=== PATIENT | male | born 1945 | race Hispanic/Latino ===

== ENCOUNTER 2017-12-30 14:56 | Emergency (ER) | payer MEDICARE ==
[~2017-12-30] VITALS: Ht 165.1 cm; Wt 83.9 kg
[~2017-12-30 14:56] MED LIST: AMLODIPINE BESY10 MG PO; ANDROGEL75 G1; BENAZEPRIL HCL20 MG PO; BUPROPION XL150 MG PO; CELEBREX200 MG PO; CRESTOR10 MG PO; FLOMAX0.4 MG PO; GLIMEPIRIDE2 MG PO; HUMALOG100 UNIT/3 SQ; KEPPRA500 MG PO; KETOROLAC TROMET5 M1 OP; LEVEMIR100 UNIT/1 SQ; LOTENSIN20 MG PO; METFORMIN HCL500 MG PO; METOPROLOL SUCC50 MG PO; PLAVIX75 MG PO; PREDNISOLONE ACE5 ML OP; PREDNISONE10 MG PO; PROVENTIL HFA6.7 GM IN; RANITIDINE HCL150 MG PO; VIGAMOX3 ML OP
[2017-12-30 16:35] LABS: BASOPHILS % 0.4 % (0.0-1.0); EOSINOPHILS # (AUTO) 0.4 (0.0-0.4); EOSINOPHILS % 5.8 % (0.0-6.0); HEMATOCRIT 42.8 % (38.2-49.6); HEMOGLOBIN 15.7 g/dL (14.0-18.0); LYMPHOCYTES # (AUTO) 1.6 (1.0-3.2); LYMPHOCYTES % 21.3 % (18.0-39.1); MEAN CORPUSCULAR HEMOGLOBIN 30.8 pg (28-32); MEAN CORPUSCULAR HGB CONC 36.7 g/dL (31-35); MEAN CORPUSCULAR VOLUME 84.1 fL (81-99); MONOCYTES # (AUTO) 0.4 (0.2-0.8); NEUTROPHILS # (AUTO) 4.8 (2.1-6.9); NEUTROPHILS % 66.1 % (38.7-80.0); PLATELET COUNT 210 x10e3/uL (140-360); RED BLOOD COUNT 5.09 x10e6/uL (4.3-5.7); RED CELL DISTRIBUTION WIDTH 13.2 % (11.7-14.4)
[2017-12-30 16:43] LABS: INR 1.03; PROTHROMBIN TIME 12.7 seconds (11.9-14.5)
[2017-12-30 16:44] LABS: PARTIAL THROMBOPLASTIN TIME 32.5 seconds (23.8-35.5)
[2017-12-30 16:48] LABS: ALANINE AMINOTRANSFERASE 31 IU/L (0-55); ALBUMIN 3.9 g/dL (3.5-5.0); ALBUMIN/GLOBULIN RATIO 0.8 (0.8-2.0); ALKALINE PHOSPHATASE 116 IU/L (40-150); ANION GAP 12.8 mmol/L (8-16); BLOOD UREA NITROGEN 11 mg/dL (7-26); BUN/CREATININE RATIO 10 (6-25); CALCIUM 9.1 mg/dL (8.4-10.2); CARBON DIOXIDE 27 mmol/L (22-29); CHLORIDE 95 mmol/L (98-107); CREATINE KINASE 73 IU/L (30-200); CREATININE, SERUM 1.11 mg/dL (0.72-1.25); EST GLOMERULAR FILTRATION RATE > 60 ML/MIN (60-); POTASSIUM 3.8 mmol/L (3.5-5.1); SODIUM 131 mmol/L (136-145)
[2017-12-30 16:55] LABS: BILIRUBIN,URINE NEGATIVE (NEGATIVE); CLARITY,URINE CLEAR (CLEAR); COLOR,URINE YELLOW (YELLOW); KETONES,URINE NEGATIVE (NEGATIVE); LEUKOCYTE ESTERASE ,URINE NEGATIVE (NEGATIVE); NITRITE,URINE NEGATIVE (NEGATIVE); PROTEIN,URINE DIPSTICK NEGATIVE (NEGATIVE); URINE UROBILINOGEN 0.2 mg/dL (0.2 - 1); WBC,URINE (MAN) 0-5 /HPF (0-5)
[2017-12-30 16:56] LABS: RBC,URINE 0-5 /HPF (0-5)
[2017-12-30 17:02] LABS: GLUCOSE 515 mg/dL (74-118)
--- NOTE | 2017-12-30 17:19 | Diagnostic Imaging Report ---
EXAMINATION: PA and lateral views of the chest. COMPARISON: None CLINICAL HISTORY: Weakness, altered mental status DISCUSSION: Lines/tubes: None. Lungs: The lungs are well inflated and clear. No pneumonia or pulmonary edema. Pleura: There is no pleural effusion or pneumothorax. Heart and mediastinum: The cardiomediastinal silhouette is normal. Bones and soft tissues: No acute bony abnormalities. IMPRESSION: No acute cardiopulmonary abnormalities. Signed by: Dr. Tono Sebastian M.D. on 12/30/2017 5:15 PM
--- NOTE | 2017-12-30 17:48 | Diagnostic Imaging Report ---
History:Weakness, headache Comparison studies:None Technique: Axial images were obtained from the skull base to the vertex. Coronal and sagittal images reconstructed from the axial data. Intravenous contrast: None Findings: Scalp/skull: No abnormalities. Extra-axial spaces: No masses. No fluid collections. Brain sulci: Mildly prominent. Ventricles: Mild compensatory dilatation. No hydrocephalus. Parenchyma: Scattered small hypodensities in the supratentorial white matter are small vessel ischemic changes. No masses, hemorrhage, acute or chronic cortical vascular insults. Sellar/suprasellar region: No abnormalities. Craniocervical junction: Patent foramen magnum. No Chiari one malformation. Incidental findings: Atherosclerotic calcifications in the carotid siphons . Left eye globe prosthesis. Impression: No acute abnormalities. Chronic findings: 1. Mild generalized volume loss. 2. Mild to moderate supratentorial white matter small vessel ischemic changes. Signed by: DR Tonny Miller M.D. on 12/30/2017 5:45 PM
[2017-12-30] MEDS ORDERED: INSULIN REGULAR, HUMAN 100 UNIT/1 ML 3ML VIAL IV STA (17:58)
[2017-12-30] MEDS ORDERED: SODIUM CHLORIDE 0.9% 1000ML 1,000 ML IV STA (17:58)
[2017-12-30] MEDS ORDERED: SODIUM CHLORIDE 0.9% 1000ML 1,000 ML IV SCH ×3 (18:00→19:07)
[2017-12-30] MEDS ORDERED: INSULIN REGULAR, HUMAN 100 UNIT/1 ML 3ML VIAL SQ ONE (18:00)
[2017-12-30] MEDS ORDERED: SODIUM CHLORIDE 0.9% 1000ML 2,000 ML ONE (18:04)
[2017-12-30 19:45] VITALS: BP 150/76
== END 2017-12-30 19:57 | disposition home or self-care (01) ==
LOC: ER 14:56
DX: G44.219 Episodic tension-type headache, not intractable (principal); E11.65 Type 2 diabetes mellitus with hyperglycemia; I25.10 Atherosclerotic heart disease of native coronary artery without angina pectoris; F41.9 Anxiety disorder, unspecified; F32.9 Major depressive disorder, single episode, unspecified; I25.2 Old myocardial infarction; Z86.73 Personal history of transient ischemic attack (TIA), and cerebral infarction without residual deficits
CPT/HCPCS: 36415; 70450; 71046; 80053; 81001; 82550; 82553; 82948; 84484; 85025; 85610; 85730; 93005; 99284; J7030

== ENCOUNTER 2018-02-16 16:08 | Emergency (ER) | payer MEDICARE ==
[~2018-02-16] VITALS: Ht 165.1 cm; Wt 83.9 kg
--- OUTSIDE RECORDS SUMMARY | 2018-02-16 16:11 | XMS REPORT ---
Author [facility] Address Unknown Phone Unavailable Care Team Providers Care Production Control Specialist Name Role Phone LINK BOURNE Unavailable Unavailable Problems This patient has no known problems. Allergies, Adverse Reactions, Alerts This patient has no known allergies or adverse reactions. Medications This patient has no known medications. Results Test Description Test Time Test Comments Text Results Atomic Results Result Comments CHEST 2 VIEWS [place] [address] Patient Name: ADRYAN DOW MR #: [id number] : 1945 Age/Sex: 72/M Req #: [id number] Adm Physician: Ordered by: LINK BOURNE MD Report #: [id number] Location: ER Room/Bed: Procedure: [id number] [id number] DX/CHEST 2 VIEWS Exam Date: 12/30/17 Exam Time : 1705 REPORT STATUS: Signed EXAMINATION: PA and lateral views of the chest. COMPARISON: None CLINICAL HISTORY: Weakness, altered mental status DISCUSSION: Lines/tubes: None. Lungs: The lungs are well inflated and clear. No pneumonia or pulmonary edema. Pleura : There is no pleural effusion or pneumothorax. Heart and mediastinum: The cardiomediastinal silhouette is normal. Bones and soft tissues: No acute bony abnormalities. IMPRESSION: No acute cardiopulmonary abnormalities. Signed by: Dr. Hernandez Cotton M.D. on 12/30/2017 5:15 PM Dictated By: HERNANDEZ COTTON MD 14 Transcribed By: JAZLYN on 12/30/171714 COPY TO: LINK BOURNE MD CT BRAIN WO [facility] [address] [address] Patient Name: ADRYAN DOW MR #: [id number] : 1945 Age/Sex: 72/M Req #: [id number] Adm Physician: Ordered by: LINK BOURNE MD Report #: [id number] Location: ER Room/Bed: Procedure: [id number] CT/CT BRAIN WO Exam Date: 12/30/17 Exam Time: 1708 REPORT STATUS: Signed History:Weakness, headache Comparison studies:None Technique: Axial images were obtained from the skull base to the vertex. Coronal and sagittal images reconstructed from the axial data. Intravenous contrast: None Findings: Scalp/skull: No abnormalities. Extra-axial spaces: No masses. No fluid collections. Brain sulci: Mildly prominent. Ventricles: Mild compensatory dilatation. No hydrocephalus. Parenchyma: Scattered small hypodensities in the supratentorial white matter are small vessel ischemic changes. No masses, hemorrhage, acute or chronic cortical vascular insults. Sellar/ suprasellar region: No abnormalities. Craniocervical junction: Patent foramen magnum. No Chiari one malformation. Incidental findings: Atherosclerotic calcifications in the carotid siphons . Left eye globe prosthesis. Impression: No acute abnormalities. Chronic findings : 1. Mild generalized volume loss. 2. Mild to moderate supratentorial white matter small vessel ischemic changes. Signed by: DR Tonny Miller M.D. on 12/30/2017 5:45 PM Dictated By: TONNY BARON MD 44 Transcribed By : JAZLYN on 12/30/171744 COPY TO: LINK BOURNE MD
--- OUTSIDE RECORDS SUMMARY | 2018-02-16 16:11 | XMS REPORT | Continuity of Care Document ---
Author Author [facility] Organization [facility] Address [address] [place] [place] [address] Phone Unavailable Care Team Providers Care Ocean Rescue Lieutenant Name Role Phone LEWIS SORIA MD PCP Insurance Providers Guarantor Adryan Walsh Address [address] [place] [address] Email NONE Payer [employer] Medicare Complete Policy Number [id number] Subscriber's Name Natali Walshmiesha Maurisio Relationship 18 Self / Same As Patient Group Number [id number] Group Name RETIRED Effective Date 16 Advance Directives Directive Response Recorded Date/Time Does the patient have an advance directive? No 01/17/17 7:08pm If yes, is advance directive on file with [facility]? No 01/17/17 7:08pm If not on file with [facility] will patient provide a copy? Yes 01/25/17 3:54pm Do you have a Directive to Physician? No 12/30/17 5:27pm Do you have a Medical Power of Child Care Center Assistant Director? No 12/30/17 5:27pm Do you have an out of hospital Do Not Resuscitate Order? No 12/30/17 5:27pm Do you have any special needs we should be aware of? No 12/30/17 5:27pm Do you have a support person here with you today? No 12/30/17 5:27pm Did patient receive Notice of Privacy Practices? Yes 12/30/17 5:27pm Did patient receive patient rights and responsibilities? Yes 12/30/17 5:27pm Problems Medical Problem Onset Date Status Chest pain 05/09/2016 Acute DKA (diabetic ketoacidoses) 03/25/2015 Acute Diabetes 05/09/2016 Acute Headache 06/03/2015 Acute Hypertension 05/09/2016 Acute Syncope 05/09/2016 Acute Medications Current Home Medications Medication Dose Units Route Directions Days Qty Instructions Start Date Amlodipine Besylate 10 Mg Tablet 10 Mg Oral Daily Benazepril Hcl 20 Mg Tablet 20 Mg Oral Daily 1-/2 tab daily Bupropion Hcl (Bupropion Xl) 150 Mg Tab.er.24h 150 Mg Oral Daily Celecoxib (Celebrex) 200 Mg Capsule 200 Mg Oral Daily Clopidogrel Bisulfate (Plavix) 75 Mg Tablet 75 Mg Oral Daily Insulin Detemir (Levemir) 100 Unit/1 Ml Vial 40 Units Sub-Q Bedtime Insulin Lispro (Humalog) 100 Unit/1 Ml Insuln.pen 20 Units Sub-Q Before Meals Levetiracetam (Keppra) 500 Mg Tablet 500 Mg Oral Twice A Day Ranitidine Hcl 150 Mg Tablet 1 Tab Oral Daily as needed for Indigestion Rosuvastatin Calcium (Crestor) 10 Mg Tab 10 Mg Oral Bedtime Tamsulosin Hcl (Flomax*) 0.4 Mg Cap 0.4 Mg Oral Daily Past Home Medications Medication Directions Ordered Status Albuterol Sulfate (Proventil Hfa) 6.7 Gm Hfa.aer.ad, 0 In Vitro Every 6 Hours as needed Discontinued Benazepril Hcl (Lotensin) 20 Mg Tablet, 20 Mg Oral Daily Discontinued Glimepiride 2 Mg Tablet, 2 Mg Oral Daily Discontinued Ketorolac Tromethamine 5 Ml Drops, 1 Drop Ophthalmic Four Times Daily Discontinued Metformin Hcl 500 Mg Tablet, 500 Mg Oral Three Times A Day Discontinued Metoprolol Succinate 50 Mg Tab.er.24h, 50 Mg Oral Daily Discontinued Moxifloxacin Hcl (Vigamox) 3 Ml Soln, 1 Drop Ophthalmic Four Times Daily Discontinued Prednisolone Acetate 5 Ml Drops.susp, 1 Drop Ophthalmic Four Times Daily Discontinued Prednisone 10 Mg Tab, 10 Mg Oral Daily Discontinued Testosterone (Androgel) 75 Gm Gel..director custom, Discontinued Family History Relationship Condition Age at Onset Recorded Date/Time 33 Father Family history of diabetes mellitus Not Recorded 05/09/2016 11: 00pm 32 Mother Family history of diabetes mellitus Not Recorded 05/09/2016 11: 00pm 09 Sister Family history of diabetes mellitus Not Recorded 05/09/2016 11: 00pm 09 Sister Family history of hypertension Not Recorded 05/09/2016 11:00pm Social History Social History Problem Response Recorded Date/Time Onset Date Status Hx Psychiatric Problems No 01/17/2017 7:08pm Not Applicable Not Applicable Hx Eating Disorder No 01/17/2017 7:08pm Not Applicable Not Applicable Hx Substance Use Disorder No 01/17/2017 7:08pm Not Applicable Not Applicable Hx Depression Yes 01/17/2017 7:08pm Not Applicable Not Applicable Hx Alcohol Use No 01/17/2017 7:08pm Not Applicable Not Applicable Hx Substance Use Treatment No 01/17/2017 7:08pm Not Applicable Not Applicable Hx Physical Abuse No 01/17/2017 7:08pm Not Applicable Not Applicable Smoking Status Start Date Stop Date Current every day smoker Hospital Discharge Instructions No hospital discharge instruction information available. Plan of Care Discharge Date 12/30/17 7:57pm Disposition HOME, SELF-CARE Condition at Discharge Improved Instructions/Education Provided Diabetes and Diet Headache Hyperglycemia Forms Provided Work/School Excuse Prescriptions See Medication Section Additional Instructions/Education TAKE YOUR MEDICATIONS PRESCRIBED FOLLOW A STRICT DIABETIC DIET YOU HAVE TO CHECK YOUR SUGARS DAILY AND TAKE YOUR MEDICATIONS DIRECTED BY YOUR PHYSICIAN Functional Status No functional status information available. Allergies, Adverse Reactions, Alerts Allergen Type Severity Reaction Status Last Updated Aspirin Allergy Unknown Active 10/06/09 Immunizations No immunization information available. Vital Signs Acute Vital Signs Vital Response Date/Time Pulse Pulse Rate (adult) 65 bpm (60 - 90) 12/30/2017 7:45pm Respiratory Rate 16 bpm (12 - 24) 12/30/2017 7:45pm Blood Pressure 150/76 mm Hg 12/30/2017 7:45pm Height 5 ft 5 in 12/30/2017 3:14pm Weight 185 lb 12/30/2017 3:14pm Body Mass Index 30.8 kg/m^2 12/30/2017 3:14pm Results Laboratory Results Test Name Result Units Flags Reference Collection Date/Time Result Date/ Time Comments White Blood Count 7.29 x10e3/uL 4.8-10.8 12/30/2017 4:07pm 12/30/2017 4 :37pm Red Blood Count 5.09 x10e6/uL 4.3-5.7 12/30/2017 4:07pm 12/30/2017 4: 37pm Hemoglobin 15.7 g/dL 14.0-18.0 12/30/2017 4:pm 12/30/2017 4:37pm Hematocrit 42.8 % 38.2-49.6 12/30/2017 4:pm 12/30/2017 4:37pm Mean Corpuscular Volume 84.1 fL 81-99 12/30/2017 4:pm 12/30/2017 4: 37pm Mean Corpuscular Hemoglobin 30.8 pg 28-32 12/30/2017 4:pm 12/30/2017 4:37pm Mean Corpuscular Hemoglobin Concent 36.7 g/dL H 31-35 12/30/2017 4:pm 12/30/2017 4:37pm Red Cell Distribution Width 13.2 % 11.7-14.4 12/30/2017 4:07pm 2017 4:37pm Platelet Count 210 x10e3/uL 140-360 12/30/2017 4:07pm 12/30/2017 4: 37pm Neutrophils (%) (Auto) 66.1 % 38.7-80.0 12/30/2017 4:pm 12/30/2017 4: 37pm Lymphocytes (%) (Auto) 21.3 % 18.0-39.1 12/30/2017 4:pm 12/30/2017 4: 37pm Monocytes (%) (Auto) 6.0 % 4.4-11.3 12/30/2017 4:pm 12/30/2017 4: 37pm Eosinophils (%) (Auto) 5.8 % 0.0-6.0 12/30/2017 4:pm 12/30/2017 4: 37pm Basophils (%) (Auto) 0.4 % 0.0-1.0 12/30/2017 4:07pm 12/30/2017 4:37pm IM GRANULOCYTES % 0.4 % 0.0-1.0 12/30/2017 4:pm 12/30/2017 4:37pm Neutrophils # (Auto) 4.8 2.1-6.9 12/30/2017 4:07pm 12/30/2017 4:37pm Lymphocytes # (Auto) 1.6 1.0-3.2 12/30/2017 4:07pm 12/30/2017 4:37pm Monocytes # (Auto) 0.4 0.2-0.8 12/30/2017 4:07pm 12/30/2017 4:37pm Eosinophils # (Auto) 0.4 0.0-0.4 12/30/2017 4:07pm 12/30/2017 4:37pm Basophils # (Auto) 0.0 0.0-0.1 12/30/2017 4:07pm 12/30/2017 4:37pm Absolute Immature Granulocyte (auto 0.03 x10e3/uL 0-0.1 12/30/2017 4: 07pm 12/30/2017 4:37pm Prothrombin Time 12.7 seconds 11.9-14.5 12/30/2017 4:07pm 12/30/2017 4: 44pm Prothromb Time International Ratio 1.03 12/30/2017 4:07pm 2017 4:44pm Oral Anticoagulant Therapy INR Values: 1. Low Intensity Therapy 1.5 - 2.0 2. Moderate Intensity Therapy 2.0 - 3.0 3. High Intensity Therapy(1) 2.5 - 3.5 4. High Intensity Therapy(2) 3.0 - 4.0 5. Panic Value INR > 5.0 Activated Partial Thromboplast Time 32.5 seconds 23.8-35.5 12/30/2017 4: 07pm 12/30/2017 4:44pm Urine Color YELLOW YELLOW 12/30/2017 3:00pm 12/30/2017 4:57pm Urine Clarity CLEAR CLEAR 12/30/2017 3:00pm 12/30/2017 4:57pm Urine Specific [place] 1.010 1.010-1.025 12/30/2017 3:00pm 2017 4:57pm Urine pH 6 5 - 7 12/30/2017 3:00pm 12/30/2017 4:57pm Urine Leukocyte Esterase NEGATIVE NEGATIVE 12/30/2017 3:00pm 2017 4:57pm Urine Nitrite NEGATIVE NEGATIVE 12/30/2017 3:00pm 12/30/2017 4:57pm Urine Protein NEGATIVE NEGATIVE 12/30/2017 3:00pm 12/30/2017 4:57pm Urine Glucose (UA) 3+ H NEGATIVE 12/30/2017 3:00pm 12/30/2017 4:57pm Urine Ketones NEGATIVE NEGATIVE 12/30/2017 3:00pm 12/30/2017 4:57pm Urine Urobilinogen 0.2 mg/dL 0.2 - 1 12/30/2017 3:00pm 12/30/2017 4: 57pm Urine Bilirubin NEGATIVE NEGATIVE 12/30/2017 3:00pm 12/30/2017 4: 57pm Urine Blood NEGATIVE NEGATIVE 12/30/2017 3:00pm 12/30/2017 4:57pm Urine WBC 0-5 /HPF 0-5 12/30/2017 3:00pm 12/30/2017 4:57pm Urine RBC 0-5 /HPF 0-5 12/30/2017 3:00pm 12/30/2017 4:57pm Urine Bacteria NONE /HPF NONE 12/30/2017 3:00pm 12/30/2017 4:57pm Urine Epithelial Cells NONE /LPF NONE 12/30/2017 3:00pm 12/30/2017 4: 57pm Sodium Level 131 mmol/L L 136-145 12/30/2017 4:07pm 12/30/2017 5:03pm Potassium Level 3.8 mmol/L 3.5-5.1 12/30/2017 4:07pm 12/30/2017 5:03pm Chloride Level 95 mmol/L L 98-107 12/30/2017 4:07pm 12/30/2017 5:03pm Carbon Dioxide Level 27 mmol/L 22-29 12/30/2017 4:07pm 12/30/2017 5: 03pm Anion Gap 12.8 mmol/L 8-16 12/30/2017 4:07pm 12/30/2017 5:03pm Blood Urea Nitrogen 11 mg/dL 7-26 12/30/2017 4:07pm 12/30/2017 5:03pm Creatinine 1.11 mg/dL 0.72-1.25 12/30/2017 4:07pm 12/30/2017 5:03pm BUN/Creatinine Ratio 10 6-25 12/30/2017 4:07pm 12/30/2017 5:03pm Estimat Glomerular Filtration Rate > 60 ML/MIN 60- 12/30/2017 4:07pm 5:03pm Ranges were taken from the National Kidney Disease Education Program and the National Kid[employer] literature. Reference ranges: 60 or greater: Normal 16-59 (for 3 consecutive months): Chronic kidney disease 15 or less: Kidney failure Glucose Level 515 mg/dL *H 74-118 12/30/2017 4:07pm 12/30/2017 5:03pm Results called to SALINA BHATT RN at 1701 on 12/30/17 by Chrissie Tobias. RB OK. Calcium Level 9.1 mg/dL 8.4-10.2 12/30/2017 4:07pm 12/30/2017 5:03pm Bedside Glucose 224 mg/dL H 70-120 12/30/2017 7:39pm 12/30/2017 7:47pm Meter ID: [id number] Total Bilirubin 0.6 mg/dL 0.2-1.2 12/30/2017 4:07pm 12/30/2017 5:03pm Aspartate Amino Transf (AST/SGOT) 22 IU/L 5-34 12/30/2017 4:07pm 2017 5:03pm Alanine Aminotransferase (ALT/SGPT) 31 IU/L 0-55 12/30/2017 4:07pm 03/2018 5:03pm Total Protein 9.0 g/dL H 6.5-8.1 12/30/2017 4:07pm 12/30/2017 5:03pm Albumin 3.9 g/dL 3.5-5.0 12/30/2017 4:07pm 12/30/2017 5:03pm Globulin 5.1 g/dL H 2.3-3.5 12/30/2017 4:07pm 12/30/2017 5:03pm Albumin/Globulin Ratio 0.8 0.8-2.0 12/30/2017 4:07pm 12/30/2017 5: 03pm Alkaline Phosphatase 116 IU/L 40-150 12/30/2017 4:07pm 12/30/2017 5: 03pm Creatine Kinase 73 IU/L 30-200 12/30/2017 4:07pm 12/30/2017 5:03pm Creatine Kinase MB 0.90 ng/mL 0-5.0 12/30/2017 4:07pm 12/30/2017 5: 03pm Troponin I < 0.001 ng/mL 0-0.300 12/30/2017 4:07pm 12/30/2017 5:03pm Procedures Procedure Status Date Provider(s) Computed tomography of brain without radiopaque contrast Active 12/30/17 LINK BOURNE MD X-ray of chest, two views Active 12/30/17 LINK BOURNE MD Encounters Encounter Location Arrival/Admit Date Discharge/Depart Date Attending Provider Departed Emergency Room [facility] 12/30/17 2:56pm 7:57pm LINK BOURNE MD
[2018-02-16 17:32] LABS: BASOPHILS # (AUTO) 0.1 (0.0-0.1); BASOPHILS % 0.8 % (0.0-1.0); EOSINOPHILS # (AUTO) 0.8 (0.0-0.4); EOSINOPHILS % 10.2 % (0.0-6.0); HEMATOCRIT 36.2 % (38.2-49.6); HEMOGLOBIN 12.8 g/dL (14.0-18.0); LYMPHOCYTES % 27.2 % (18.0-39.1); MEAN CORPUSCULAR HEMOGLOBIN 31.1 pg (28-32); MEAN CORPUSCULAR HGB CONC 35.4 g/dL (31-35); MEAN CORPUSCULAR VOLUME 88.1 fL (81-99); MONOCYTES # (AUTO) 0.6 (0.2-0.8); MONOCYTES % 7.5 % (4.4-11.3); NEUTROPHILS % 54.2 % (38.7-80.0); PLATELET COUNT 198 x10e3/uL (140-360); RED BLOOD COUNT 4.11 x10e6/uL (4.3-5.7); RED CELL DISTRIBUTION WIDTH 13.9 % (11.7-14.4)
[2018-02-16 17:41] LABS: BILIRUBIN,URINE NEGATIVE (NEGATIVE); CLARITY,URINE CLEAR (CLEAR); COLOR,URINE YELLOW (YELLOW); KETONES,URINE NEGATIVE (NEGATIVE); LEUKOCYTE ESTERASE ,URINE NEGATIVE (NEGATIVE); NITRITE,URINE NEGATIVE (NEGATIVE); PROTEIN,URINE DIPSTICK TRACE (NEGATIVE); URINE UROBILINOGEN 4 mg/dL (0.2 - 1)
--- NOTE | 2018-02-16 17:46 | Diagnostic Imaging Report ---
PROCEDURE: Frontal and lateral views of the chest. COMPARISON: 12/30/17 INDICATIONS: SICK, HEADACHE FINDINGS: Lines/tubes: None. Lungs: The lungs are well inflated and clear. There is no evidence of pneumonia or pulmonary edema. Mild left basilar subsegmental atelectasis. Pleura: There is no pleural effusion or pneumothorax. Heart and mediastinum: The heart and the mediastinum are normal. Bones: No acute bony abnormality. Degenerative changes of thoracic spine. Unchanged anterior wedging of T10 vertebral body. IMPRESSION: 1. No acute cardiopulmonary disease. Dictated by: Parker Peterson M.D. on 02/16/2018 at 17:49 Electronically approved by: Parker Peterson M.D. on 02/16/2018 at 17:49
[2018-02-16 17:49] LABS: ALANINE AMINOTRANSFERASE 16 IU/L (0-55); ALBUMIN 3.6 g/dL (3.5-5.0); ALKALINE PHOSPHATASE 80 IU/L (40-150); ANION GAP 11.7 mmol/L (8-16); BLOOD UREA NITROGEN 12 mg/dL (7-26); BUN/CREATININE RATIO 13 (6-25); CALCIUM 8.5 mg/dL (8.4-10.2); CARBON DIOXIDE 25 mmol/L (22-29); CHLORIDE 105 mmol/L (98-107); CREATINE KINASE 82 IU/L (30-200); CREATININE, SERUM 0.92 mg/dL (0.72-1.25); EST GLOMERULAR FILTRATION RATE > 60 ML/MIN (60-); GLUCOSE 146 mg/dL (74-118); LIPASE 29 U/L (8-78); POTASSIUM 3.7 mmol/L (3.5-5.1); SODIUM 138 mmol/L (136-145)
[2018-02-16 17:52] LABS: RBC,URINE 0-5 /HPF (0-5)
[2018-02-16 17:53] LABS: EPITHELIAL CELLS,URINE RARE /LPF; MUCUS,URINE FEW (RARE)
--- NOTE | 2018-02-16 18:31 | Diagnostic Imaging Report ---
Examination: CT head without contrast Clinical Indication: Headache.. Technique: Transaxial noncontrast images from the skull base through the vertex were obtained. Sagittal and coronal reformatted images were done. Comparison: Head CT performed December 30, 2017. Findings: Scalp: No abnormalities. Bones: Intact. No fractures. No blastic or lytic lesions. Brain sulci: Mild volume loss for patient's age. Ventricles: No hydrocephalus. Extra-axial space: No abnormalities. Parenchyma: There are patchy areas of low-attenuation within subcortical and periventricular white matter, nonspecific, but could represent microvascular ischemic disease. No masses, hemorrhage, or acute or chronic cortical based vascular insults. Suprasellar region: No abnormalities. Craniocervical junction: The foramen magnum is patent. No Chiari one malformation. Incidental findings: Atherosclerotic calcification of the cavernous and supraclinoid internal carotid and V4 segments of the bilateral vertebral arteries. Left globe prosthesis. Impression: 1. No new or acute intracranial abnormalities. No change from prior head CT performed December 30, 2017. 2. Unchanged mild chronic microvascular ischemic change and volume loss. Signed by: Dr. Susana Serrato M.D. on 02/16/2018 6:27 PM
[2018-02-16] MEDS ORDERED: SODIUM CHLORIDE 0.9% 1000ML 1,000 ML IV STA (18:37)
[2018-02-16] MEDS ORDERED: METOCLOPRAMIDE HCL 10 MG/2ML VIAL IV ONE (18:45)
[2018-02-16] MEDS ORDERED: KETOROLAC TROMETHAMINE 30 MG/ML VIAL IV ONE (19:50)
[2018-02-16] MEDS ORDERED: DIPHENHYDRAMINE HCL INJ 50 MG/ML VIAL IV ONE (20:00)
[2018-02-16 21:25] VITALS: BP 157/104
== END 2018-02-16 22:12 | disposition home or self-care (01) ==
LOC: ER 16:08
DX: R51 Headache (principal); R06.02 Shortness of breath; R07.89 Other chest pain; R53.1 Weakness; I10 Essential (primary) hypertension; E11.9 Type 2 diabetes mellitus without complications; J44.9 Chronic obstructive pulmonary disease, unspecified; I25.10 Atherosclerotic heart disease of native coronary artery without angina pectoris; F41.9 Anxiety disorder, unspecified; F32.9 Major depressive disorder, single episode, unspecified; I25.2 Old myocardial infarction; F17.210 Nicotine dependence, cigarettes, uncomplicated
CPT/HCPCS: 36415; 70450; 71046; 80053; 81001; 82550; 82553; 83690; 84484; 85025; 93005; 99284; J1200; J1885; J2765; J7030

== ENCOUNTER 2018-02-24 07:48 | Emergency (ER) | payer MEDICARE ==
[~2018-02-24] VITALS: Ht 165.1 cm; Wt 83.9 kg
--- OUTSIDE RECORDS SUMMARY | 2018-02-24 07:50 | XMS REPORT | Continuity of Care Document ---
Author Author [facility] Organization [facility] Address [address] [place] [address] Phone Unavailable Care Team Providers Care Brand Recorder Name Role Phone LEWIS SORIA MD PCP Insurance Providers Guarantor Adryan Walsh Maurisio Address [address], [place] [address] Email PTDECLINED Payer [employer] Medicare Complete Policy Number [id number] Subscriber's Name Adryan Walsh Relationship 18 Self / Same As Patient Group Number [id number] Group Name RETIRED Effective Date 16 Advance Directives Directive Response Recorded Date/Time Does the patient have an advance directive? No 01/17/17 7:08pm If yes, is advance directive on file with [facility]? No 01/17/17 7:08pm If not on file with [facility] will patient provide a copy? No 02/16/18 5:39pm Do you have a Directive to Physician? No 02/16/18 5:39pm Do you have a Medical Power of Lead Java Developer Architect? No 02/16/18 5:39pm Do you have an out of hospital Do Not Resuscitate Order? No 02/16/18 5:39pm Do you have any special needs we should be aware of? No 02/16/18 5:39pm Do you have a support person here with you today? Yes 02/16/18 5:39pm Did patient receive Notice of Privacy Practices? Yes 02/16/18 5:39pm Did patient receive patient rights and responsibilities? Yes 02/16/18 5:39pm Problems Medical Problem Onset Date Status Chest pain 05/09/2016 Acute DKA (diabetic ketoacidoses) 03/25/2015 Acute Diabetes 05/09/2016 Acute Headache 06/03/2015 Acute Hypertension 05/09/2016 Acute Syncope 05/09/2016 Acute Medications Current Home Medications Medication Dose Units Route Directions Days Qty Instructions Start Date Amlodipine Besylate 10 Mg Tablet 10 Mg Oral Daily Benazepril Hcl 20 Mg Tablet 20 Mg Oral Daily 1-2 tab daily Bupropion Hcl (Bupropion Xl) 150 [...] Oral Daily Discontinued Testosterone (Androgel) 75 Gm Gel.md.geographical historian, Discontinued Family History Relationship Condition Age at [...] Applicable Smoking Status Start Date Stop Date Unknown if ever smoked Hospital Discharge Instructions No hospital discharge instruction information available. Plan of Care Discharge Date 02/16/18 10:12pm Disposition HOME, SELF-CARE Condition at Discharge Stable Instructions/Education Provided Headache Forms Provided Work/School Excuse Prescriptions See Medication Section Referrals LEWIS SORIA MD Address: [address] [place] [id number] Additional Instructions/Education FOLLOW UP WITH PCP ON MONDAY. TAKE MEDICATIONS PRESCRIBED. DRINK PLENTY OF FLUID TO MAINTAIN HYDRATION. Functional Status No functional status information available. Allergies, Adverse Reactions, Alerts Allergen Type Severity Reaction Status Last Updated Aspirin Allergy Unknown Active 10/06/09 Immunizations No immunization information available. Vital Signs Acute Vital Signs Vital Response Date/Time Pulse Pulse Rate (adult) 89 bpm (60 - 90) 02/16/2018 9:25pm Respiratory Rate 18 bpm (12 - 24) 02/16/2018 9:25pm Blood Pressure 157/104 mm Hg 02/16/2018 9:25pm Height 5 ft 5 in 02/16/2018 4:23pm Weight 185 lb 02/16/2018 4:23pm Body Mass Index 30.8 kg/m^2 02/16/2018 4:23pm Results Laboratory Results Test Name Result Units Flags Reference Collection Date/Time Result Date/ Time Comments Prothrombin Time 12.7 seconds 11.9-14.5 12/30/2017 4:07pm [...] seconds 23.8-35.5 12/30/2017 4: 07pm 12/30/2017 4:44pm Bedside Glucose 224 mg/dL H 70-120 12/30/2017 7:39pm 12/30/2017 7:47pm Meter ID: [id number] White Blood Count 7.46 x10e3/uL 4.8-10.8 02/16/2018 5:1502/16/2018 5 :32pm Red Blood Count 4.11 x10e6/uL L 4.3-5.7 02/16/2018 5:1502/16/2018 5: 32pm Hemoglobin 12.8 g/dL L 14.0-18.0 02/16/2018 5:1502/16/2018 5:32pm Hematocrit 36.2 % L 38.2-49.6 02/16/2018 5:1502/16/2018 5:32pm Mean Corpuscular Volume 88.1 fL 81-99 02/16/2018 5:1502/16/2018 5: 32pm Mean Corpuscular Hemoglobin 31.1 pg 28-32 02/16/2018 5:1502/16/2018 5:32pm Mean Corpuscular Hemoglobin Concent 35.4 g/dL H 31-35 02/16/2018 5:1502/16/2018 5:32pm Red Cell Distribution Width 13.9 % 11.7-14.4 02/16/2018 5:152017 5:32pm Platelet Count 198 x10e3/uL 140-360 02/16/2018 5:1502/16/2018 5: 32pm Neutrophils (%) (Auto) 54.2 % 38.7-80.0 02/16/2018 5:1502/16/2018 5: 32pm Lymphocytes (%) (Auto) 27.2 % 18.0-39.1 02/16/2018 5:1502/16/2018 5: 32pm Monocytes (%) (Auto) 7.5 % 4.4-11.3 02/16/2018 5:1502/16/2018 5: 32pm Eosinophils (%) (Auto) 10.2 % H 0.0-6.0 02/16/2018 5:1502/16/2018 5: 32pm Basophils (%) (Auto) 0.8 % 0.0-1.0 02/16/2018 5:1502/16/2018 5:32pm IM GRANULOCYTES % 0.1 % 0.0-1.0 02/16/2018 5:1502/16/2018 5:32pm Neutrophils # (Auto) 4.0 2.1-6.9 02/16/2018 5:1502/16/2018 5:32pm Lymphocytes # (Auto) 2.0 1.0-3.2 02/16/2018 5:1502/16/2018 5:32pm Monocytes # (Auto) 0.6 0.2-0.8 02/16/2018 5:1502/16/2018 5:32pm Eosinophils # (Auto) 0.8 H 0.0-0.4 02/16/2018 5:02/16/2018 5: 32pm Basophils # (Auto) 0.1 0.0-0.1 02/16/2018 5:1502/16/2018 5:32pm Absolute Immature Granulocyte (auto 0.01 x10e3/uL 0-0.1 02/16/2018 5: 1502/16/2018 5:32pm Urine Color YELLOW YELLOW 02/16/2018 5:1502/16/2018 5:41pm Urine Clarity CLEAR CLEAR 02/16/2018 5:1502/16/2018 5:41pm Urine Specific [place] 1.020 1.010-1.025 02/16/2018 5:152017 5:41pm Urine pH 7 5 - 7 02/16/2018 5:15pm 02/16/2018 5:41pm Urine Leukocyte Esterase NEGATIVE NEGATIVE 02/16/2018 5:15pm 2017 5:41pm Urine Nitrite NEGATIVE NEGATIVE 02/16/2018 5:15pm 02/16/2018 5:41pm Urine Protein TRACE H NEGATIVE 02/16/2018 5:15pm 02/16/2018 5:41pm Urine Glucose (UA) NEGATIVE NEGATIVE 02/16/2018 5:15pm 02/16/2018 5: 41pm Urine Ketones NEGATIVE NEGATIVE 02/16/2018 5:15pm 02/16/2018 5:41pm Urine Urobilinogen 4 mg/dL H 0.2 - 1 02/16/2018 5:15pm 02/16/2018 5: 41pm Urine Bilirubin NEGATIVE NEGATIVE 02/16/2018 5:15pm 02/16/2018 5: 41pm Urine Blood NEGATIVE NEGATIVE 02/16/2018 5:15pm 02/16/2018 5:41pm Urine WBC 6-10 /HPF H 0-5 02/16/2018 5:15pm 02/16/2018 5:53pm Urine RBC 0-5 /HPF 0-5 02/16/2018 5:15pm 02/16/2018 5:53pm Urine Bacteria NONE /HPF NONE 02/16/2018 5:15pm 02/16/2018 5:53pm Urine Epithelial Cells RARE /LPF NONE 02/16/2018 5:15pm 02/16/2018 5: 53pm Urine Mucus FEW H RARE 02/16/2018 5:15pm 02/16/2018 5:53pm Sodium Level 138 mmol/L 136-145 02/16/2018 5:15pm 02/16/2018 5:50pm Potassium Level 3.7 mmol/L 3.5-5.1 02/16/2018 5:15pm 02/16/2018 5:50pm Chloride Level 105 mmol/L 98-107 02/16/2018 5:15pm 02/16/2018 5:50pm Carbon Dioxide Level 25 mmol/L 02/16/2018 5:15pm 02/16/2018 5: 50pm Anion Gap 11.7 mmol/L 8-16 02/16/2018 5:15pm 02/16/2018 5:50pm Blood Urea Nitrogen 12 mg/dL 04-1902/16/2018 5:15pm 02/16/2018 5:50pm Creatinine 0.92 mg/dL 0.72-1.25 02/16/2018 5:15pm 02/16/2018 5:50pm BUN/Creatinine Ratio 13 6-25 02/16/2018 5:15pm 02/16/2018 5:50pm Estimat Glomerular Filtration Rate > 60 ML/MIN 60- 02/16/2018 5:15pm 5:50pm Ranges were taken from the National Kidney Disease Education Program and the National Kidney Foundation literature. Reference ranges: 60 or greater: Normal 16-59 (for 3 consecutive months): Chronic kidney disease 15 or less: Kidney failure Glucose Level 146 mg/dL H 74-118 02/16/2018 5:15pm 02/16/2018 5:50pm Calcium Level 8.5 mg/dL 8.4-10.2 02/16/2018 5:15pm 02/16/2018 5:50pm Total Bilirubin 0.4 mg/dL 0.2-1.2 02/16/2018 5:15pm 02/16/2018 5:50pm Aspartate Amino Transf (AST/SGOT) 13 IU/L 5-34 02/16/2018 5:15pm 2017 5:50pm Alanine Aminotransferase (ALT/SGPT) 16 IU/L 0-55 02/16/2018 5:15pm 5:50pm Total Protein 7.3 g/dL 6.5-8.1 02/16/2018 5:15pm 02/16/2018 5:50pm Albumin 3.6 g/dL 3.5-5.0 02/16/2018 5:15pm 02/16/2018 5:50pm Globulin 3.7 g/dL H 2.3-3.5 02/16/2018 5:15pm 02/16/2018 5:50pm Albumin/Globulin Ratio 1.0 0.8-2.0 02/16/2018 5:15pm 02/16/2018 5: 50pm Alkaline Phosphatase 80 IU/L 40-150 02/16/2018 5:15pm 02/16/2018 5: 50pm Creatine Kinase 82 IU/L 30-200 02/16/2018 5:15pm 02/16/2018 5:50pm Creatine Kinase MB 0.90 ng/mL 0-5.0 02/16/2018 5:15pm 02/16/2018 5: 57pm Troponin I < 0.001 ng/mL 0-0.300 02/16/2018 5:15pm 02/16/2018 5:57pm Lipase 29 U/L 8-78 02/16/2018 5:15pm 02/16/2018 5:50pm Procedures Procedure Status Date Provider(s) Computed tomography of brain without radiopaque contrast Active 12/30/17 LINK BOURNE MD X-ray of chest, two views Active 12/30/17 LINK BOURNE MD Computed tomography of brain without radiopaque contrast Active 02/16/18 EMANUEL MILLER NP X-ray of chest, two views Active 02/16/18 EMANUEL BEY NP Encounters Encounter Location Arrival/Admit Date Discharge/Depart Date Attending Provider Departed Emergency Room [facility] 02/16/18 4:08pm 10:12pm VIANEY SCANLON DO Departed Emergency Room [facility] 12/30/17 2:56pm 7:57pm LINK BOURNE MD
[2018-02-24 08:32] LABS: BASOPHILS # (AUTO) 0.1 (0.0-0.1); BASOPHILS % 0.8 % (0.0-1.0); EOSINOPHILS # (AUTO) 0.8 (0.0-0.4); EOSINOPHILS % 10.7 % (0.0-6.0); HEMATOCRIT 38.9 % (38.2-49.6); HEMOGLOBIN 13.7 g/dL (14.0-18.0); LYMPHOCYTES # (AUTO) 1.9 (1.0-3.2); LYMPHOCYTES % 24.7 % (18.0-39.1); MEAN CORPUSCULAR HEMOGLOBIN 30.9 pg (28-32); MEAN CORPUSCULAR HGB CONC 35.2 g/dL (31-35); MEAN CORPUSCULAR VOLUME 87.8 fL (81-99); MONOCYTES # (AUTO) 0.5 (0.2-0.8); NEUTROPHILS # (AUTO) 4.3 (2.1-6.9); NEUTROPHILS % 56.5 % (38.7-80.0); PLATELET COUNT 214 x10e3/uL (140-360); RED BLOOD COUNT 4.43 x10e6/uL (4.3-5.7); RED CELL DISTRIBUTION WIDTH 13.6 % (11.7-14.4)
[2018-02-24 08:36] LABS: CLARITY,URINE CLEAR (CLEAR); COLOR,URINE YELLOW (YELLOW)
[2018-02-24 08:37] LABS: BILIRUBIN,URINE NEGATIVE (NEGATIVE); KETONES,URINE NEGATIVE (NEGATIVE); LEUKOCYTE ESTERASE ,URINE NEGATIVE (NEGATIVE); PROTEIN,URINE DIPSTICK NEGATIVE (NEGATIVE); URINE UROBILINOGEN 0.2 mg/dL (0.2 - 1)
[2018-02-24 08:38] LABS: NITRITE,URINE NEGATIVE (NEGATIVE)
--- NOTE | 2018-02-24 08:42 | Diagnostic Imaging Report ---
EXAMINATION: Head CT HISTORY: Dizziness, nausea, evaluate for CVA COMPARISON: Head CT on 02/16/2018 TECHNIQUE: Multidetector axial images were obtained without contrast from the foramen magnum to the vertex . The images were reconstructed using brain and bone algorithms. Thin section brain images were reformatted into coronal and sagittal planes. Motion/streaking artifact limits the evaluation of the skull base and posterior cranial fossa. FINDINGS: Parenchyma: 1. Persistent mild to moderate confluent mostly bilateral frontal white matter chronic microvascular ischemic changes. 2. No mass or hemorrhage. No CT evidence of acute territorial vascular insult. Extra-axial spaces:No abnormal density. No extra-axial fluid collections Brain volume: Normal for age. Ventricles: No hydrocephalus or displacement. Arteries: No density suggestive of thrombus. Dural sinuses: No abnormal density. Extra-axial spaces: No abnormal density. Foramen magnum: No mass, Chiari malformation, or basilar invagination. Sella: No obvious mass. Paranasal/mastoid sinuses: Imaged portions unremarkable. Skull/Scalp: No lytic or blastic lesions. No fractures. IMPRESSION: 1. No acute intracranial hemorrhage or cortical infarct. 2. Unchanged moderate chronic microvascular ischemic changes compared to head CT on 02/16/2018. Signed by: Dr. Hetal Ray M.D. on 02/24/2018 8:39 AM
[2018-02-24 08:47] LABS: BACTERIA,URINE FEW /HPF; EPITHELIAL CELLS,URINE FEW /LPF; RBC,URINE 0-5 /HPF (0-5); WBC,URINE (MAN) 0-5 /HPF (0-5)
--- NOTE | 2018-02-24 08:49 | Diagnostic Imaging Report ---
Examination: Single portable AP view of the chest. COMPARISON: Chest 2 views 02/16/2018 INDICATION: Chest pain IMPRESSION: The left lateral costophrenic angle is not entirely included on the image. 1. Lines and Tubes: None 2. Lungs are grossly clear. No consolidation or effusion, within the limitations of the study. 3. Cardiomediastinal silhouette is normal. Pulmonary vasculature is normal. 4. No acute bony abnormalities. Signed by: Dr. German Jarrett M.D. on 02/24/2018 8:45 AM
[2018-02-24 08:51] LABS: ALANINE AMINOTRANSFERASE 25 IU/L (0-55); ALKALINE PHOSPHATASE 86 IU/L (40-150); ANION GAP 13.9 mmol/L (8-16); BLOOD UREA NITROGEN 16 mg/dL (7-26); BUN/CREATININE RATIO 19 (6-25); CARBON DIOXIDE 25 mmol/L (22-29); CHLORIDE 102 mmol/L (98-107); CREATINE KINASE 111 IU/L (30-200); CREATININE, SERUM 0.85 mg/dL (0.72-1.25); EST GLOMERULAR FILTRATION RATE > 60 ML/MIN (60-); GLUCOSE 192 mg/dL (74-118); POTASSIUM 3.9 mmol/L (3.5-5.1); SODIUM 137 mmol/L (136-145)
[2018-02-24] MEDS ORDERED: MECLIZINE HCL 12.5 MG TAB PO ONE (09:15)
[2018-02-24] MEDS ORDERED: KETOROLAC TROMETHAMINE 30 MG/ML VIAL IV STA (11:10)
== END 2018-02-24 12:15 | disposition home or self-care (01) ==
LOC: ER 07:48
DX: R42 Dizziness and giddiness (principal); R11.0 Nausea; H81.13 Benign paroxysmal vertigo, bilateral; I10 Essential (primary) hypertension; E11.9 Type 2 diabetes mellitus without complications; I25.10 Atherosclerotic heart disease of native coronary artery without angina pectoris; Z86.73 Personal history of transient ischemic attack (TIA), and cerebral infarction without residual deficits
CPT/HCPCS: 36415; 70450; 71045; 80053; 81001; 82550; 82553; 84484; 85025; 93005; 99284; J1885

== ENCOUNTER 2018-08-23 08:37 | Inpatient (IN) | payer MEDICARE ==
[~2018-08-23] VITALS: Ht 167.6 cm; Wt 70.9 kg
--- OUTSIDE RECORDS SUMMARY | 2018-08-23 08:39 | XMS REPORT | Continuity of Care Document ---
Author Author [facility] Organization [facility] Address Unknown Phone Unavailable Care Team Providers Care President Celebrity Acquistion Name Role Phone MD Jairon, Servando PP Unavailable Insurance Providers Payer name Policy type / Coverage type Policy ID Covered alliance party ID Policy [facility] - DUAL COMPLETE (MEDICARE [employer] [facility] - DUAL COMPLETE (MEDICARE Encounters Encounter Performer Location Date Office Visit Servando De La O MD [facility] February 12, 2015 Problems Problem Effective Dates Problem Status SUBDURAL HEMATOMA February 04, 2015 Active HISTORY OF HYPERTENSION February 12, 2015 Active Procedures Date Description Comments February 12, 2015 smoking status Unknown if ever smoked Medications Medication Instructions Start Date Status CELEBREX 200 MG CAPS February 12, 2015 Active CRESTOR 10 MG TABS February 12, 2015 Active AMLODIPINE-ATORVASTATIN 10-10 MG TABS February 12, 2015 Active BISACODYL 10 MG SUPP February 12, 2015 Active BUDEPRION SR 150 MG [id number] February 12, 2015 Active DOCUSATE SODIUM 100 MG TABS February 12, 2015 Active GLIMEPIRIDE TABS February 12, 2015 Active LEVETIRACETAM ER 500 MG [id number] February 12, 2015 Active METOPROLOL TARTRATE 50 MG TABS February 12, 2015 Active PANTOPRAZOLE SODIUM 40 MG SOLR February 12, 2015 Active EQL SENNA-S 8.6-50 MG TABS February 12, 2015 Active TAMSULOSIN HCL 0.4 MG CAPS February 12, 2015 Active TRAMADOL HCL 50 MG TABS February 12, 2015 Active Vital Signs Date Description Test Result February 12, 2015 weight E&M - 3141-9 WEIGHT 185.0 lb February 12, 2015 height E&M - 8302-2 HEIGHT 66 in February 12, 2015 pulse rate E&M - 8867-4 PULSE RATE 76 /min February 12, 2015 blood pressure, systolic - 8480-6 BP SYSTOLIC 156 mm Hg February 12, 2015 blood pressure, diastolic - 8462-4 BP DIASTOLIC 88 mm Hg
--- OUTSIDE RECORDS SUMMARY | 2018-08-23 08:39 | XMS REPORT | Continuity of Care Document ---
Author Author [facility] Interface Address Unknown Phone Unavailable Problems Problem Status Onset Date Classification Date Reported Comments Source HISTORY OF HYPERTENSION Active 02/12/2015 Condition 02/12/2015 [facility] SUBDURAL HEMATOMA Active 02/04/2015 Condition 02/12/2015 [facility] Medications Medication Details Route Status Patient Instructions Ordering Provider Order Date Source CELEBREX 200 MG CAPS Active 02/12/2015 [facility] CRESTOR 10 MG TABS Active 02/12/2015 [facility] AMLODIPINE-ATORVASTATIN 10-10 MG TABS Active 02/12/2015 [facility] BISACODYL 10 MG SUPP Active 02/12/2015 [facility] BUDEPRION SR 150 MG [id number] Active 02/12/2015 [facility] DOCUSATE SODIUM 100 MG TABS Active 02/12/2015 [facility] GLIMEPIRIDE TABS Active 02/12/2015 [facility] LEVETIRACETAM ER 500 MG [id number] Active 02/12/2015 [facility] METOPROLOL TARTRATE 50 MG TABS Active 02/12/2015 [facility] PANTOPRAZOLE SODIUM 40 MG SOLR Active 02/12/2015 [facility] EQL SENNA-S 8.6-50 MG TABS Active 02/12/2015 [facility] TAMSULOSIN HCL 0.4 MG CAPS Active 02/12/2015 [facility] TRAMADOL HCL 50 MG TABS Active 02/12/2015 [facility] Allergies, Adverse Reactions, Alerts Substance Category Reaction Severity Reaction type Status Date Reported Comments Source Immunizations Immunization Date Given Site Status Last Updated Comments Source Results Order Name Results Value Reference Range Date Interpretation Comments Source Vital Signs Vital Sign Value Date Comments Source Weight 185.0 02/12/2015 [facility] Height 66 02/12/2015 [facility] Heart Rate 76 02/12/2015 [facility] Systolic (mm Hg) 156 02/12/2015 [facility] Diastolic (mm Hg) 88 02/12/2015 [facility] Encounters Location Location Details Encounter Type Encounter Number Reason For Visit Attending Provider ADM Date DC Date Status Source [facility] Office Visit [id number] Servando De La O MD 02/12/2015 02/12/2015 [facility] Procedures Procedure Code Date Perfomer Comments Source
[2018-08-23] MEDS ORDERED: ASPIRIN 81 MG CHEW TAB PO ONE ×2 (09:45→10:30)
[2018-08-23 09:46] LABS: BASOPHILS % 0.3 % (0.0-1.0); EOSINOPHILS # (AUTO) 0.2 (0.0-0.4); EOSINOPHILS % 1.3 % (0.0-6.0); HEMATOCRIT 39.9 % (38.2-49.6); HEMOGLOBIN 13.5 g/dL (14.0-18.0); LYMPHOCYTES % 16.4 % (18.0-39.1); MEAN CORPUSCULAR HEMOGLOBIN 29.2 pg (28-32); MEAN CORPUSCULAR HGB CONC 33.8 g/dL (31-35); MEAN CORPUSCULAR VOLUME 86.2 fL (81-99); MONOCYTES # (AUTO) 0.7 (0.2-0.8); MONOCYTES % 5.8 % (4.4-11.3); NEUTROPHILS % 75.6 % (38.7-80.0); PLATELET COUNT 310 x10e3/uL (140-360); RED BLOOD COUNT 4.63 x10e6/uL (4.3-5.7); RED CELL DISTRIBUTION WIDTH 12.7 % (11.7-14.4)
[2018-08-23 09:51] LABS: CLARITY,URINE SL CLOUDY (CLEAR); COLOR,URINE YELLOW (YELLOW); LEUKOCYTE ESTERASE ,URINE NEGATIVE (NEGATIVE); NITRITE,URINE NEGATIVE (NEGATIVE)
[2018-08-23 09:52] LABS: BILIRUBIN,URINE NEGATIVE (NEGATIVE); KETONES,URINE NEGATIVE (NEGATIVE); PROTEIN,URINE DIPSTICK TRACE (NEGATIVE); URINE UROBILINOGEN 4 mg/dL (0.2 - 1)
[2018-08-23 10:04] LABS: ALANINE AMINOTRANSFERASE 7 IU/L (0-55); ALBUMIN 3.2 g/dL (3.5-5.0); ALBUMIN/GLOBULIN RATIO 0.6 (0.8-2.0); ALKALINE PHOSPHATASE 123 IU/L (40-150); ANION GAP 13.8 mmol/L (8-16); BLOOD UREA NITROGEN 8 mg/dL (7-26); BUN/CREATININE RATIO 9 (6-25); CALCIUM 9.2 mg/dL (8.4-10.2); CARBON DIOXIDE 27 mmol/L (22-29); CHLORIDE 96 mmol/L (98-107); CREATINE KINASE 48 IU/L (30-200); CREATININE, SERUM 0.94 mg/dL (0.72-1.25); EST GLOMERULAR FILTRATION RATE > 60 ML/MIN (60-); GLUCOSE 355 mg/dL (74-118); POTASSIUM 3.8 mmol/L (3.5-5.1); SODIUM 133 mmol/L (136-145)
[2018-08-23 10:12] LABS: EPITHELIAL CELLS,URINE RARE /LPF
[2018-08-23 10:13] LABS: MUCUS,URINE RARE (RARE)
[2018-08-23] MEDS ORDERED: NITROGLYCERIN 0.4 MG SUBL SL PRN (10:30)
[2018-08-23] MEDS ORDERED: MORPHINE SULFATE 5 MG/ML VIAL IV ONE (10:30)
[2018-08-23] MEDS ORDERED: MORPHINE SULFATE INJ 4 MG/ML INJ IV NR (11:00)
--- NOTE | 2018-08-23 12:08 | Diagnostic Imaging Report ---
PROCEDURE: A single AP view of the chest. COMPARISON: Chest radiograph 02/24/18. INDICATIONS: CHEST PAIN FINDINGS: Lines/tubes: None. Lungs: Left perihilar consolidative opacity, new since radiograph on 02/24/18. Right lung is clear. No evidence of pulmonary edema. Pleura: There is no pleural effusion or pneumothorax. Heart and mediastinum: The heart and the mediastinum are unremarkable. Bones: No acute bony abnormality. IMPRESSION: Left perihilar consolidative opacity, new since radiograph on 02/24/18, and likely represents pneumonia in the acute setting. Follow-up chest radiograph is recommended in 6-8 weeks to assess for resolution. Dictated by: ISABEL LEWIS M.D. on 08/23/2018 at 12:18 Electronically approved by: ISABEL LEWIS M.D. on 08/23/2018 at 12:18
[2018-08-23 13:57] VITALS: BP 172/84
--- NOTE | 2018-08-23 14:28 | Consultation ---
DATE OF CONSULTATION: August 23, 2018 REASON FOR CONSULTATION: Chest pain. HISTORY: This is a 72-year-old gentleman who is a poor historian. Patient is known with multiple medical health problems, including coronary artery disease. His problem of coronary artery disease dated back to several years ago when in 1999 he had stenting to the LAD. In 2009, he had another stent, but to the circumflex coronary artery using 3 x 12 stent and to the PDA of the circumflex using 2.75 x 12 mm stent. In April 2016, he had cardiac catheterization and he had a new stent to the mid-LAD distal to the 1st stent. This was 2.5 x 16 Promus Premier stent. Since that time, he was doing reasonably well. Patient is a very poor historian. He came to this institution complaining of chest pain. The chest pain is lower retrosternal, epigastric and "like a band.". He said it is very vague. He cannot describe it. It is going on for 3 days. His appetite is becoming poor. He denied having any nausea or any vomiting. He still able to do his yard but slowly. He denied having any orthopnea or paroxysmal nocturnal dyspnea. Unfortunately, he is a smoker. There is occasional palpitation, but no syncope or presyncope. Patient's other problems includes diabetes mellitus with end-organ damage, hypertension, COPD, and seizure disorder. REVIEW OF SYSTEMS: Was done to all 14 systems and will be summarized for clarity mentioning only positive and negative important symptoms. CARDIAC: As per above. PULMONARY: No cough. No hemoptysis. No recent travel. No pleuritic chest pain. No hemoptysis. GI: Bloating and indigestion. No hematemesis. No melena. No nausea. No vomiting. : Increased frequency of urination. No hematuria. No dysuria. NEUROMUSCULAR: Back pain, knee pain and leg pain. GENERAL: No fever. No chills. HEENT: Remarkable for left eye blindness following an accident at younger age. HEMATOLOGICAL: History of low platelet counts, but no overt bleeding. This improved with time. NEUROLOGICAL: Severe peripheral neuropathy symptoms and history of seizure disorder, on Keppra. SOCIAL HISTORY: He is . Unfortunately, he is a smoker. He does not drink alcohol. He is retired from [employer]. HOME MEDICATIONS: 1. Norvasc 10 mg a day. 2. Plavix 75 mg a day. 3. Crestor 10 mg a day. 4. Benazepril 20 mg a day. 5. Flomax 0.4 mg a day. 6. Keppra 500 mg twice a day. 7. Lantus insulin 40 units at bedtime. 8. Humalog 20 units t.i.d. 9. Bupropion 150 mg a day. 10. Celexa 200 mg a day. Surprisingly, the patient is not taking his metoprolol, which he is supposed to be on metoprolol 25 mg twice daily. ALLERGIES: PATIENT IS INTOLERANT TO ASPIRIN RATHER THAN TRUE ALLERGY TO ASPIRIN. PATIENT ALSO WITH NONSTEROIDAL ANTI-INFLAMMATORY CAUSED HIM A RASH AND ANGIOEDEMA. PAST MEDICAL HISTORY 1. Carotid artery disease. PCI to the LAD in 1999. 2. PCI and stenting of the circumflex using 3.12 Integrity stent to the circumflex and the PDA of the circumflex using 2.75 x 12 in 2009. 3. PCI to mid-LAD in 2016. 4. Hypertension. 5. Hypercholesteremia. 6. Degenerative joint disease of the back and knees. 7. Smoker. 8. Left eye blindness. 9. Chronic lung disease. 10. Right and left inguinal hernia surgery. 11. Eczema with chronic scratching and symptoms of the back and lower extremities. 12. Hiatus hernia. 13. Past history of giardiasis. 14. Past history of low platelets with good recovery. 15. Seizure disorder. 16. History of major trauma to the head leading to left eye blindness. FAMILY HISTORY: Strongly positive for coronary artery disease in almost every member of his family with coronary artery disease. PHYSICAL EXAMINATION VITALS: Height of 5 feet 6 inches, weight of 170 pounds, blood pressure 130/70, heart rate of 100, respiratory rate of 18. HEENT: There is blindness of the left eye. Decreased vision in the right eye. NECK: No elevation of jugular venous pulsation. No thyromegaly. No lymphadenopathy. CHEST: Decreased air entry and decreased lung expansion. Increased expiratory phase. HEART: PMI in 5th left intercostal space. Normal 1st and 2nd heart sounds with soft ejection systolic murmur. ABDOMEN: Soft with good bowel sounds. No organomegaly. No bruits. EXTREMITIES: Skin lesions and scratch mayen are noted on both lower extremities. Decreased pulses. NEUROLOGIC: Neck is supple. Artificial left eye is noted. No gross motor deficits. LAB DATA: White blood cell count of 11.9, hemoglobin 13.5, hematocrit 40%, and platelet count of 310,000. Sodium of 133, potassium 3.8, BUN 96, creatinine 2.7. BUN of 8, creatinine of 0.14, glucose of 355. BNP of 25. Urinalysis showing glucosuria. Troponin first set is normal. IMPRESSION AND PLAN 1. Admission with chest pain with typical and atypical characteristics. 2. Patient is known with long-standing history of coronary artery disease with stable anginal symptoms. 3. History of percutaneous coronary intervention. 4. Hypertension. 5. Hypercholesteremia. 6. Smoker. 7. Chronic obstructive pulmonary disease. 8. Seizure disorder. 9. Diabetes mellitus, on insulin with severe end-organ damage. 10. Chronic skin changes. 11. 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 Cardiac watson, recommendation will be as follows: 1. Serial cardiac enzymes. 2. Checking lipid profile. 3. Checking echocardiogram. 4. Keeping the patient on telemetry. 5. Continuation of Plavix, Norvasc, benazepril, and small dose of beta rashid in addition to Crestor. Case discussed with the patient. Care discussed with this granddaughter who is with him. Their questions are answered. Job#: [id number] JOEL
[2018-08-23 14:29] VITALS: BP 146/77
[2018-08-23] MEDS ORDERED: NON-FORMULARY MEDICATION (Insulin Detemir (Levemir) 40 UNITS) SQ SCH (14:30)
[2018-08-23] MEDS ORDERED: RANITIDINE HCL PO PRN (14:30)
[2018-08-23] MEDS ORDERED: DEXTROSE 50% SYRINGE 50 ML IV PRN (14:30)
[2018-08-23] MEDS ORDERED: FAMOTIDINE 20 MG TAB PO PRN (14:45)
[2018-08-23] MEDS: AMLODIPINE BESYLATE 10 MG TAB PO SCH (15:05)
[2018-08-23] MEDS: PANTOPRAZOLE SOD 40 MG TABEC PO SCH (15:06)
[2018-08-23] MEDS: INSULIN LISPRO 100 UNIT/1 ML 3ML VIAL SQ SCH ×3 (15:06→20:15)
[2018-08-23] MEDS: BUPROPION HCL 150 MG TABCR PO SCH (15:06)
[2018-08-23] MEDS: PHENAZOPYRIDINE HCL 100 MG TAB PO SCH ×2 (15:06→20:06)
[2018-08-23] MEDS: LEVETIRACETAM 500 MG TAB PO SCH ×2 (15:06→20:05)
[2018-08-23] MEDS: CLOPIDOGREL BISULFATE 75 MG TAB PO SCH (15:06)
--- NOTE | 2018-08-23 15:37 | Diagnostic Imaging Report ---
EXAM: CT of the abdomen and pelvis WITH contrast HISTORY: Abdominal pain COMPARISON: None available. TECHNIQUE: The abdomen and pelvis were scanned utilizing a multidetector helical scanner. Coronal and sagittal reformats are provided. Motion artifact partially limits sensitivity and specificity of the exam. PROTOCOL: Routine IV CONTRAST: 100 cc of Isovue-370. ORAL CONTRAST: Water RADIATION DOSE: Total DLP: 1241.48 mGy*cm Estimated effective dose: (DLP x 0.015 x size factor) Dose modulation, iterative reconstruction, and/or weight based adjustment of the mA/kV was utilized to reduce the radiation dose to as low as reasonably achievable. COMPLICATIONS: None FINDINGS: The images were submitted and notification request for interpretation on August 23, 2018 at approximately 1515. LOWER THORAX: Unremarkable. HEPATOBILIARY: Coarse calcifications within the liver. A 0.9 cm fluid density near the junction of the right and caudate lobe, compatible with a small cyst. No biliary ductal dilatation. The gallbladder is unremarkable. SPLEEN: No splenomegaly. PANCREAS: No focal masses or ductal dilatation. ADRENALS: No discrete adrenal nodule. KIDNEYS/URETERS: No hydronephrosis, stones, or solid mass lesions. Contrast within the urinary collecting systems, ureters, and bladder. A 6 mm fluid density at the posterior medial aspect of the interpolar region of the left kidney, compatible with a small cyst. A 2.2 cm fluid density near the inferior pole of the left kidney. PELVIC ORGANS/BLADDER: The visualized pelvic organs appear unremarkable. PERITONEUM / RETROPERITONEUM: No free air or fluid. LYMPH NODES: No pathologically enlarged lymph node. VESSELS: Diffuse scattered atherosclerotic vascular calcifications. GI TRACT: No distention or wall thickening identified. The stomach is partially decompressed, which limits the evaluation. Colonic diverticulosis, most notably the sigmoid colon. A nonobstructing short segment transition of the distal sigmoid colon (series 4 image 60), most likely secondary to peristalsis. The apparent appendix appears smaller than expected, but otherwise normal. BONES: No aggressive osseous lesion. T10 is a butterfly vertebral body. Multilevel degenerative changes, most notably lumbosacral facet arthrosis. Mild degenerative anterolisthesis of L4 on L5. SOFT TISSUES: Unremarkable. IMPRESSION: 1. Colonic diverticulosis, without CT evidence of acute diverticulitis. 2. Short segment nonobstructing transition at the distal sigmoid colon, likely secondary to peristalsis, but advise correlation with colon cancer screening results (such as colonoscopy). 3. Incidental left renal cysts. Signed by: Dr. Palmer Perdomo D.O., M.M.M. on 08/23/2018 3:34 PM
[2018-08-23] MEDS ORDERED: INSULIN LISPRO 100 UNIT/1 ML 3ML VIAL SQ SCH (16:30)
[2018-08-23] MEDS ORDERED: INSULIN LISPRO 20 UNIT SQ SCH (16:30)
[2018-08-23] MEDS ORDERED: IOPAMIDOL 370 MG/ML 200 ML INFUS..BTL INJ ONE (16:51)
[2018-08-23] MEDS ORDERED: SODIUM CHLORIDE 0.9% 50ML 50 ML ONE (16:51)
[2018-08-23] MEDS ORDERED: ZOLPIDEM TARTRATE 5 MG TAB PO PRN (17:15)
[2018-08-23] MEDS ORDERED: ACETAMINOPHEN 325 MG TAB PO PRN (17:15)
[2018-08-23] MEDS ORDERED: CLONIDINE HCL 0.1 MG TAB PO PRN (17:15)
[2018-08-23] MEDS: MOXIFLOXACIN HCL(OPTH) 3 ML BTL OP SCH ×2 (18:00→20:15)
[2018-08-23] MEDS: LEVOFLOXACIN 500MG/D5W 100ML 100 ML IV SCH (18:05)
[2018-08-23 18:14] LABS: CREATINE KINASE MB 0.6 ng/mL (0-5.0)
--- NOTE | 2018-08-23 18:18 | History and Physical ---
HISTORY OF PRESENT ILLNESS: The 72-year-old male with past medical history positive for coronary artery disease status post stent, history of CVA, history of hypertension, history of diabetes mellitus type 2, history of hypercholesterolemia, came here complaining of very sharp left-sided chest pain with cough and some mild fever. Patient was found to have pneumonia. He was complaining also of burning on urination and started empirically on IV antibiotics. REVIEW OF SYSTEMS: CARDIOVASCULAR: He had a very sharp chest pain, no shortness of breath. RESPIRATORY: He has cough and left-sided chest pain. GASTROINTESTINAL: He had vomiting 1 time. No diarrhea. No abdominal pain. GENITOURINARY: He has frequency and dysuria. ALLERGIES: HE IS ALLERGIC TO ASPIRIN. SOCIAL HISTORY: He smokes. He does not drink alcohol. PAST MEDICAL HISTORY: Positive for coronary artery disease status post stent placement, history of CVA, history of hypertension with neuropathy, history of hypercholesterolemia, seizure disorder, and uncontrolled diabetes. PHYSICAL EXAMINATION: VITAL SIGNS: Blood pressure 146/77, temperature 98.6, heart rate 79 per minute, respiratory 18 per minute. Oxygen saturation 96%. HEART: Shows regular rhythm. Normal S1 and S2 sounds. LUNGS: Clear bilaterally. ABDOMEN: Soft. EXTREMITIES: Show no evidence of cyanosis, edema or trauma. The CT of the abdomen showed diverticulosis, no significant findings except for transition in the sigmoid colon. Chest x-ray showed left lower lung infiltrate. Blood culture and urine culture are still pending. On the blood work we have sodium 133, potassium 3.8, chloride 96, CO2 27, BUN 8, creatinine 0.94, glucose 335. On the CBC: White blood count 11.9, hemoglobin 13.5, hematocrit 39.9, platelet count 310,000. AST 10, ALT 7, total bilirubin 0.6, alkaline phosphatase 123. FINAL IMPRESSION: 1. Lower lobe pneumonia. 2. Urinary tract infection. 3. Chest pain. 4. Uncontrolled hypertension. 5. History of coronary artery disease status post stent placement. 6. History of old cerebrovascular accident with no significant deficit. 7. 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 8. Headaches. 9. Leukocytosis. 10. Hyponatremia. PLAN OF TREATMENT: We are going to start him on Levaquin 500 mg IV daily. Protonix 40 mg daily. Amlodipine 10 mg daily. Wellbutrin 150 mg daily. Keppra 500 mg twice a day. Simvastatin 10 mg daily. Continue Humalog 10 units before meals. Plavix 75 mg daily. 100 mg 3 times a day as needed for burning on urination. Pepcid 20 mg daily. Flomax 0.4 mg daily. Levemir 40 units at bedtime. Continue monitoring blood sugar a.c. and nightly. Continue benazepril 20 mg daily. Celebrex 200 mg daily. Tylenol 650 mg q.4 h. as needed for pain or fever. Ambien 5 mg at night p.r.n. for sleep. Ultracet 1 tablet q.4 h. as needed for moderate pain. I discussed the case with the patient, explained all the plan of treatment. Dr. Menjivar has been consulted from the cardiology point of view. EKG was pretty much unremarkable, showing only normal sinus rhythm, no evidence of any ST segment depression or elevation. Troponins are negative; we are going to do 2 more. Job#: [id number] COOPER
[2018-08-23 19:10] VITALS: BP 120/69
[2018-08-23 20:00] VITALS: BP 120/69
[2018-08-23] MEDS: INSULIN DETEMIR 100 UNIT/ML PEN SQ SCH (20:16)
[2018-08-23] MEDS: TRAMADOL HCL 50 MG TAB PO PRN (20:18)
[2018-08-24] VITALS: BP 106/59
[2018-08-24 04:00] VITALS: BP 101/60
[2018-08-24 05:32] LABS: BASOPHILS % 0.2 % (0.0-1.0); EOSINOPHILS # (AUTO) 0.2 (0.0-0.4); EOSINOPHILS % 1.4 % (0.0-6.0); HEMATOCRIT 33.2 % (38.2-49.6); LYMPHOCYTES # (AUTO) 1.6 (1.0-3.2); LYMPHOCYTES % 12.8 % (18.0-39.1); MEAN CORPUSCULAR HEMOGLOBIN 28.7 pg (28-32); MEAN CORPUSCULAR HGB CONC 33.1 g/dL (31-35); MEAN CORPUSCULAR VOLUME 86.7 fL (81-99); MONOCYTES # (AUTO) 0.8 (0.2-0.8); MONOCYTES % 6.5 % (4.4-11.3); NEUTROPHILS # (AUTO) 9.7 (2.1-6.9); NEUTROPHILS % 78.5 % (38.7-80.0); PLATELET COUNT 261 x10e3/uL (140-360); RED BLOOD COUNT 3.83 x10e6/uL (4.3-5.7); RED CELL DISTRIBUTION WIDTH 12.8 % (11.7-14.4)
[2018-08-24 05:50] LABS: INR 1.04; PROTHROMBIN TIME 14.5 seconds (11.9-14.5)
[2018-08-24 06:01] LABS: ALANINE AMINOTRANSFERASE 6 IU/L (0-55); ALBUMIN 2.6 g/dL (3.5-5.0); ALBUMIN/GLOBULIN RATIO 0.6 (0.8-2.0); ALKALINE PHOSPHATASE 98 IU/L (40-150); BLOOD UREA NITROGEN 10 mg/dL (7-26); BUN/CREATININE RATIO 12 (6-25); CALCIUM 8.6 mg/dL (8.4-10.2); CARBON DIOXIDE 27 mmol/L (22-29); CHLORIDE 100 mmol/L (98-107); CREATININE, SERUM 0.82 mg/dL (0.72-1.25); EST GLOMERULAR FILTRATION RATE > 60 ML/MIN (60-); GLUCOSE 134 mg/dL (74-118); SODIUM 135 mmol/L (136-145)
[2018-08-24 06:23] LABS: THYROID STIMULATING HORMONE 0.762 uIU/mL (0.350-4.940)
[2018-08-24 06:32] LABS: CHOL/HDL RATIO 4.7 (3.9-4.7)
[2018-08-24 06:50] LABS: CREATINE KINASE 36 IU/L (30-200)
[2018-08-24] MEDS: PANTOPRAZOLE SOD 40 MG TABEC PO SCH (07:18)
[2018-08-24] MEDS: INSULIN LISPRO 100 UNIT/1 ML 3ML VIAL SQ SCH ×7 (07:30→21:30)
[2018-08-24 08:00] VITALS: BP 117/60
[2018-08-24 08:09] VITALS: BP 117/60
[2018-08-24] MEDS: CLOPIDOGREL BISULFATE 75 MG TAB PO SCH (08:50)
[2018-08-24] MEDS: CELECOXIB 200 MG CAP PO SCH (08:50)
[2018-08-24] MEDS: LEVETIRACETAM 500 MG TAB PO SCH ×2 (08:50→21:00)
[2018-08-24] MEDS: MOXIFLOXACIN HCL(OPTH) 3 ML BTL OP SCH ×4 (08:50→21:00)
[2018-08-24] MEDS: BUPROPION HCL 150 MG TABCR PO SCH (08:50)
[2018-08-24] MEDS: AMLODIPINE BESYLATE 10 MG TAB PO SCH (08:50)
[2018-08-24] MEDS: PHENAZOPYRIDINE HCL 100 MG TAB PO SCH ×3 (08:50→21:45)
[2018-08-24] MEDS: BENAZEPRIL HCL 10 MG TAB PO SCH (08:50)
[2018-08-24] MEDS: TAMSULOSIN HCL 0.4 MG CAP PO SCH (08:50)
[2018-08-24] MEDS ORDERED: NON-FORMULARY MEDICATION (Benazepril Hcl 20 MG) PO SCH (09:00)
[2018-08-24] MEDS ORDERED: NON-FORMULARY MEDICATION (Celecoxib (Celebrex) 200 MG) PO SCH (09:00)
[2018-08-24] MEDS ORDERED: SIMVASTATIN 40 MG TAB PO SCH (09:00)
[2018-08-24 12:29] VITALS: BP 107/66
--- NOTE | 2018-08-24 15:45 | Progress Note ---
DATE: August 24, 2018 INTERNAL MEDICINE PROGRESS NOTE Patient is doing well except for chest pain on the left side. PHYSICAL EXAMINATION VITALS: Blood pressure 107/66, temperature 96.6, heart rate 73 per minute, respiratory rate 16 per minute, oxygen saturation 95%. HEART: Shows regular rhythm. Normal S1 and S2 sounds. LUNGS: Clear bilaterally. ABDOMEN: Soft. EXTREMITIES: Show no evidence of cyanosis or trauma. BLOOD WORK: We have BMP with sodium 135, potassium 4, chloride 100, CO2 27, BUN 10, creatinine 0.82, glucose 134. CBC: White blood count is elevated at 12.3, hemoglobin 11, hematocrit 33.2, and platelet count of 261,000. PT 14.5, INR 1.04. AST 10, ALT 6, total bilirubin 0.5, alkaline phosphatase 98. FINAL IMPRESSION 1. Community-acquired pneumonia which explains the pain that he is having. 2. History of coronary artery disease: Status post stent placement. 3. Uncontrolled diabetes mellitus, type 2 with diabetic neuropathy. 4. Peripheral vascular disease. 5. Hypertension. 6. Hypercholesterolemia. 7. Urinary tract infection. 8. Prostatitis. PLAN OF TREATMENT: Continue Levaquin 500 mg IV daily. Continue nitroglycerin 0.4 mg sublingual every 5 minutes p.r.n. for chest pain. No more 3 tablets. Protonix 40 mg daily. Bupropion 150 mg daily. Keppra 500 mg twice a day. Simvastatin 10 mg daily. Tylenol 625 mg q.4 h. as needed. Vigamox 1 drop to each eye q.6 h. times 7 days because of conjunctivitis. Continue Plavix 75 mg daily. Pyridium 100 mg 3 times a day due to UTI. Pepcid 20 mg daily. Ambien 5 mg at night p.r.n. for sleep. Tramadol 50 mg q.6 h. as needed for pain. Flomax 0.4 mg daily. Levemir 40 units at bedtime. Clonidine 0.1 mg q.4 h. as needed for hypertension. Amlodipine 5 mg daily. Continue monitoring blood sugar a.c. and at night. Humalog 10 units before meals. Benazepril 20 mg daily and Celebrex 200 mg daily. Continue physical and occupational therapy. Waiting on the blood culture report and urine culture reports. Job#: [id number] RI
--- NOTE | 2018-08-24 16:05 | Progress Note ---
DATE: August 24, 2018 ADDENDUM TO INTERNAL MEDICINE PROGRESS NOTE SUBJECTIVE: Patient also had a possible stenosis of the sigmoid area on a CT of the abdomen. He has had a colonoscopy done a few years ago, he does not remember how long, which apparently was normal. We are going to get a gastroenterology consult with Dr. Eric Lilly to investigate more about that. Job#: [id number] EV
[2018-08-24] MEDS: LEVOFLOXACIN 500MG/D5W 100ML 100 ML IV SCH (17:49)
[2018-08-24 20:00] VITALS: BP 127/63
[2018-08-24] MEDS: INSULIN DETEMIR 100 UNIT/ML PEN SQ SCH (21:30)
[2018-08-24] MEDS: SIMVASTATIN 20 MG TAB PO SCH (22:18)
[2018-08-25] VITALS (7 sets, daily range): BP systolic 113–127; BP diastolic 57–72
[2018-08-25] MEDS ORDERED: BISACODYL 5 MG TAB EC PO ONE ×3 (05:00→06:00)
[2018-08-25 06:11] LABS: BASOPHILS % 0.3 % (0.0-1.0); EOSINOPHILS # (AUTO) 0.2 (0.0-0.4); HEMATOCRIT 33.5 % (38.2-49.6); HEMOGLOBIN 11.3 g/dL (14.0-18.0); LYMPHOCYTES # (AUTO) 1.7 (1.0-3.2); LYMPHOCYTES % 17.1 % (18.0-39.1); MEAN CORPUSCULAR HGB CONC 33.7 g/dL (31-35); MEAN CORPUSCULAR VOLUME 86.1 fL (81-99); MONOCYTES # (AUTO) 0.7 (0.2-0.8); MONOCYTES % 6.9 % (4.4-11.3); NEUTROPHILS # (AUTO) 7.3 (2.1-6.9); NEUTROPHILS % 73.2 % (38.7-80.0); PLATELET COUNT 256 x10e3/uL (140-360); RED BLOOD COUNT 3.89 x10e6/uL (4.3-5.7); RED CELL DISTRIBUTION WIDTH 12.7 % (11.7-14.4)
[2018-08-25 06:33] LABS: ANION GAP 10.7 mmol/L (8-16); CALCIUM 8.3 mg/dL (8.4-10.2); CARBON DIOXIDE 27 mmol/L (22-29); CHLORIDE 103 mmol/L (98-107); POTASSIUM 3.7 mmol/L (3.5-5.1); SODIUM 137 mmol/L (136-145)
[2018-08-25] MEDS ORDERED: CITRATE OF MAGNESIA 300ML BOTTLE PO ONE ×2 (07:00→08:00)
[2018-08-25 07:04] LABS: BLOOD UREA NITROGEN 10 mg/dL (7-26); GLUCOSE 136 mg/dL (74-118)
[2018-08-25 07:22] LABS: BUN/CREATININE RATIO 12 (6-25); CREATININE, SERUM 0.82 mg/dL (0.72-1.25); EST GLOMERULAR FILTRATION RATE > 60 ML/MIN (60-)
[2018-08-25] MEDS: MOXIFLOXACIN HCL(OPTH) 3 ML BTL OP SCH ×4 (08:25→21:00)
[2018-08-25] MEDS: PANTOPRAZOLE SOD 40 MG TABEC PO SCH (08:25)
[2018-08-25] MEDS: TAMSULOSIN HCL 0.4 MG CAP PO SCH (08:25)
[2018-08-25] MEDS: CELECOXIB 200 MG CAP PO SCH (08:25)
[2018-08-25] MEDS: LEVETIRACETAM 500 MG TAB PO SCH ×2 (08:25→21:00)
[2018-08-25] MEDS: AMLODIPINE BESYLATE 5 MG TAB PO SCH (08:26)
[2018-08-25] MEDS: BUPROPION HCL 150 MG TABCR PO SCH (08:26)
[2018-08-25] MEDS: CLOPIDOGREL BISULFATE 75 MG TAB PO SCH (08:26)
[2018-08-25] MEDS: BENAZEPRIL HCL 10 MG TAB PO SCH (08:26)
[2018-08-25] MEDS: PHENAZOPYRIDINE HCL 100 MG TAB PO SCH ×3 (08:26→21:00)
[2018-08-25] MEDS: INSULIN LISPRO 100 UNIT/1 ML 3ML VIAL SQ SCH ×7 (08:27→21:30)
[2018-08-25] MEDS ORDERED: AMLODIPINE BESYLATE 10 MG TAB PO SCH (09:00)
[2018-08-25] MEDS: LEVOFLOXACIN 500MG/D5W 100ML 100 ML IV SCH (17:21)
[2018-08-25] MEDS: SIMVASTATIN 20 MG TAB PO SCH (21:00)
[2018-08-25] MEDS: INSULIN DETEMIR 100 UNIT/ML PEN SQ SCH (21:30)
[2018-08-26] VITALS (8 sets, daily range): BP systolic 99–143; BP diastolic 56–68
[2018-08-26 05:49] LABS: BASOPHILS % 0.3 % (0.0-1.0); EOSINOPHILS # (AUTO) 0.2 (0.0-0.4); EOSINOPHILS % 2.2 % (0.0-6.0); HEMATOCRIT 34.6 % (38.2-49.6); HEMOGLOBIN 11.6 g/dL (14.0-18.0); LYMPHOCYTES # (AUTO) 1.5 (1.0-3.2); LYMPHOCYTES % 17.2 % (18.0-39.1); MEAN CORPUSCULAR HEMOGLOBIN 29.1 pg (28-32); MEAN CORPUSCULAR HGB CONC 33.5 g/dL (31-35); MEAN CORPUSCULAR VOLUME 86.9 fL (81-99); MONOCYTES # (AUTO) 0.7 (0.2-0.8); MONOCYTES % 8.1 % (4.4-11.3); NEUTROPHILS # (AUTO) 6.4 (2.1-6.9); NEUTROPHILS % 71.9 % (38.7-80.0); PLATELET COUNT 262 x10e3/uL (140-360); RED BLOOD COUNT 3.98 x10e6/uL (4.3-5.7); RED CELL DISTRIBUTION WIDTH 12.9 % (11.7-14.4)
[2018-08-26 06:33] LABS: ANION GAP 11.2 mmol/L (8-16); BLOOD UREA NITROGEN 10 mg/dL (7-26); BUN/CREATININE RATIO 11 (6-25); CALCIUM 8.6 mg/dL (8.4-10.2); CARBON DIOXIDE 26 mmol/L (22-29); CHLORIDE 103 mmol/L (98-107); CREATININE, SERUM 0.92 mg/dL (0.72-1.25); EST GLOMERULAR FILTRATION RATE > 60 ML/MIN (60-); GLUCOSE 224 mg/dL (74-118); POTASSIUM 4.2 mmol/L (3.5-5.1); SODIUM 136 mmol/L (136-145)
[2018-08-26 07:23] LABS: FOLATE 5.8 ng/mL (7.0-15.4)
[2018-08-26] MEDS: PANTOPRAZOLE SOD 40 MG TABEC PO SCH (07:47)
[2018-08-26] MEDS: INSULIN LISPRO 100 UNIT/1 ML 3ML VIAL SQ SCH ×7 (07:49→20:31)
[2018-08-26 07:50] LABS: FERRITIN 756.95 ng/mL (21.81-274.66)
[2018-08-26] MEDS: CELECOXIB 200 MG CAP PO SCH (08:00)
[2018-08-26] MEDS: PHENAZOPYRIDINE HCL 100 MG TAB PO SCH ×3 (08:00→21:13)
[2018-08-26] MEDS: AMLODIPINE BESYLATE 5 MG TAB PO SCH (08:00)
[2018-08-26] MEDS: BENAZEPRIL HCL 10 MG TAB PO SCH (08:00)
[2018-08-26] MEDS: TAMSULOSIN HCL 0.4 MG CAP PO SCH (08:00)
[2018-08-26] MEDS: CLOPIDOGREL BISULFATE 75 MG TAB PO SCH (08:00)
[2018-08-26] MEDS: LEVETIRACETAM 500 MG TAB PO SCH ×2 (08:00→21:13)
[2018-08-26] MEDS: MOXIFLOXACIN HCL(OPTH) 3 ML BTL OP SCH ×4 (08:00→21:13)
[2018-08-26] MEDS: BUPROPION HCL 150 MG TABCR PO SCH (08:00)
[2018-08-26] MEDS: TRAMADOL HCL 50 MG TAB PO PRN (10:31)
[2018-08-26] MEDS: HYDROCODONE/APAP 5MG-325MG TAB PO PRN (12:56)
[2018-08-26] MEDS ORDERED: CYANOCOBALAMIN INJ 1,000 MCG/ML VIAL IM SCH (13:00)
[2018-08-26] MEDS: LEVOFLOXACIN 500MG/D5W 100ML 100 ML IV SCH (16:46)
[2018-08-26] MEDS: INSULIN DETEMIR 100 UNIT/ML PEN SQ SCH (20:31)
[2018-08-26] MEDS: SIMVASTATIN 20 MG TAB PO SCH (21:13)
[2018-08-26] MEDS ORDERED: CYANOCOBALAMIN INJ 1,000 MCG/ML VIAL IM ONE (21:45)
[2018-08-26] MEDS ORDERED: IRON SUCROSE 100 MG in SODIUM CHLORIDE 0.9% 100 ML 100 ML IV SCH (21:45)
[2018-08-26] MEDS ORDERED: FOLIC ACID 1 MG TAB PO ONE (21:45)
[2018-08-27] VITALS (7 sets, daily range): BP systolic 127–144; BP diastolic 68–76
[2018-08-27] MEDS: HYDROCODONE/APAP 5MG-325MG TAB PO PRN ×2 (00:15→14:08)
[2018-08-27 06:26] LABS: BASOPHILS % 0.2 % (0.0-1.0); EOSINOPHILS # (AUTO) 0.3 (0.0-0.4); EOSINOPHILS % 2.8 % (0.0-6.0); HEMOGLOBIN 11.3 g/dL (14.0-18.0); LYMPHOCYTES # (AUTO) 1.5 (1.0-3.2); LYMPHOCYTES % 16.3 % (18.0-39.1); MEAN CORPUSCULAR HEMOGLOBIN 29.2 pg (28-32); MEAN CORPUSCULAR HGB CONC 33.2 g/dL (31-35); MEAN CORPUSCULAR VOLUME 87.9 fL (81-99); MONOCYTES % 10.2 % (4.4-11.3); NEUTROPHILS # (AUTO) 6.5 (2.1-6.9); PLATELET COUNT 267 x10e3/uL (140-360); RED BLOOD COUNT 3.87 x10e6/uL (4.3-5.7); RED CELL DISTRIBUTION WIDTH 13.1 % (11.7-14.4)
[2018-08-27 06:44] LABS: ALANINE AMINOTRANSFERASE 8 IU/L (0-55); ALBUMIN 2.6 g/dL (3.5-5.0); ALBUMIN/GLOBULIN RATIO 0.6 (0.8-2.0); ALKALINE PHOSPHATASE 96 IU/L (40-150); AMYLASE 25 U/L (25-125); BLOOD UREA NITROGEN 10 mg/dL (7-26); BUN/CREATININE RATIO 12 (6-25); CALCIUM 8.6 mg/dL (8.4-10.2); CARBON DIOXIDE 26 mmol/L (22-29); CHLORIDE 103 mmol/L (98-107); CREATININE, SERUM 0.85 mg/dL (0.72-1.25); EST GLOMERULAR FILTRATION RATE > 60 ML/MIN (60-); GLUCOSE 156 mg/dL (74-118); LIPASE 22 U/L (8-78); SODIUM 138 mmol/L (136-145)
[2018-08-27] MEDS: BENAZEPRIL HCL 10 MG TAB PO SCH (09:30)
[2018-08-27] MEDS: PHENAZOPYRIDINE HCL 100 MG TAB PO SCH ×3 (09:30→21:41)
[2018-08-27] MEDS: AMLODIPINE BESYLATE 5 MG TAB PO SCH (09:30)
[2018-08-27] MEDS: TAMSULOSIN HCL 0.4 MG CAP PO SCH (09:30)
[2018-08-27] MEDS: FOLIC ACID 1 MG TAB PO SCH (09:30)
[2018-08-27] MEDS: CELECOXIB 200 MG CAP PO SCH (09:30)
[2018-08-27] MEDS: CYANOCOBALAMIN INJ 1,000 MCG/ML VIAL IM SCH (09:30)
[2018-08-27] MEDS: PANTOPRAZOLE SOD 40 MG TABEC PO SCH (09:30)
[2018-08-27] MEDS: CLOPIDOGREL BISULFATE 75 MG TAB PO SCH (09:30)
[2018-08-27] MEDS: BUPROPION HCL 150 MG TABCR PO SCH (09:30)
[2018-08-27] MEDS: LEVETIRACETAM 500 MG TAB PO SCH ×2 (09:30→21:41)
[2018-08-27] MEDS: IRON SUCROSE 100 MG in SODIUM CHLORIDE 0.9% 100 ML 100 ML IV SCH (09:30)
[2018-08-27] MEDS: MOXIFLOXACIN HCL(OPTH) 3 ML BTL OP SCH ×4 (09:30→21:41)
[2018-08-27] MEDS: INSULIN LISPRO 100 UNIT/1 ML 3ML VIAL SQ SCH ×6 (09:35→21:00)
--- NOTE | 2018-08-27 13:20 | Progress Note ---
DATE: August 27, 2018 INTERNAL MEDICINE PROGRESS NOTE SUBJECTIVE: The patient doing better, but he has some sharp pain in the sternal area at times and some abdominal pain. PHYSICAL EXAMINATION VITAL SIGNS: Blood pressure 131/72, temperature 97.2, heart rate 85 per minute. Respiratory rate 18 per minute. Oxygen saturation 92%. HEART: Regular rhythm. Normal S1, S2 sounds. LUNGS: Clear bilaterally. ABDOMEN: Soft. EXTREMITIES: No evidence of cyanosis, edema or trauma. LABS: Blood culture and urine culture are negative. BMP: Sodium 138, potassium 4.0, chloride 103, CO2 26, BUN 10, creatinine 0.85. Glucose 156. CBC: White blood count 9.29; hemoglobin 11.3; hematocrit 34.0; platelet count 267,000. PT 14.5, INR 1.04. AST 12, ALT 8, total bilirubin 0.3, alkaline phosphatase 96. FINAL IMPRESSION 1. Left lower lobe pneumonia, which is community acquired. 2. Coronary artery disease, status post stent. 3. History of seizure disorder. 4. Uncontrolled diabetes mellitus, type 2, with diabetic neuropathy. 5. Hypertension. 6. Urinary tract infection and prostatitis. 7. Conjunctivitis. 8. Anemia of chronic disease. 9. Sigmoid colon stenosis. PLAN OF TREATMENT: Continue Levaquin 500 mg IV daily. Continue iron infusion. Nitroglycerin 0.4 mg every 5 minutes p.r.n. for chest pain. Protonix 40 mg daily. Continue monitoring blood sugar a.c. and h.s. Continue benazepril 20 mg daily, Tylenol 325 mg q.4 h. as needed, moxifloxacin 1 mL q.i.d. to each eye because of conjunctivitis. Continue vitamin B12 1,000 mcg p.o. daily, bupropion 150 mg daily, Keppra 500 mg twice a day, simvastatin 10 mg daily, Ambien 5 mg at night p.r.n. for sleep, tramadol 50 mg q.6 h. as needed for pain, folic acid 1 mg daily, Plavix 75 mg daily, Pyridium 100 mg 3 times a day, Levemir 40 units at bedtime, clonidine 0.1 mg q.4 h. as needed, amlodipine 5 mg daily, D50 IV push as needed for hypoglycemia, Flomax 0.4 mg daily, Celebrex 200 mg daily. Continue Humalog 10 units before meals, Stock[place] 1 tablet q.4 h. as needed for pain. Also, Dr. Eric Lilly has been seen the patient. He is going to do a colonoscopy as an outpatient. Tentative discharge tomorrow. Job#: [id number]
[2018-08-27] MEDS: LEVOFLOXACIN 500MG/D5W 100ML 100 ML IV SCH (16:54)
[2018-08-27] MEDS: INSULIN DETEMIR 100 UNIT/ML PEN SQ SCH (21:00)
[2018-08-27] MEDS: SIMVASTATIN 20 MG TAB PO SCH (21:41)
[2018-08-28] VITALS: BP 123/65
[2018-08-28 04:00] VITALS: BP 127/74
[2018-08-28] MEDS: INSULIN LISPRO 100 UNIT/1 ML 3ML VIAL SQ SCH ×2 (07:45)
[2018-08-28] MEDS: PANTOPRAZOLE SOD 40 MG TABEC PO SCH (07:55)
[2018-08-28 08:00] VITALS: BP 119/71
[2018-08-28] MEDS: CYANOCOBALAMIN INJ 1,000 MCG/ML VIAL IM SCH (08:12)
[2018-08-28] MEDS: BUPROPION HCL 150 MG TABCR PO SCH (08:14)
[2018-08-28] MEDS: PHENAZOPYRIDINE HCL 100 MG TAB PO SCH (08:14)
[2018-08-28] MEDS: CLOPIDOGREL BISULFATE 75 MG TAB PO SCH (08:14)
[2018-08-28] MEDS: BENAZEPRIL HCL 10 MG TAB PO SCH (08:14)
[2018-08-28] MEDS: AMLODIPINE BESYLATE 5 MG TAB PO SCH (08:14)
[2018-08-28] MEDS: CELECOXIB 200 MG CAP PO SCH (08:15)
[2018-08-28] MEDS: IRON SUCROSE 100 MG in SODIUM CHLORIDE 0.9% 100 ML 100 ML IV SCH (08:15)
[2018-08-28] MEDS: TAMSULOSIN HCL 0.4 MG CAP PO SCH (08:15)
[2018-08-28] MEDS: LEVETIRACETAM 500 MG TAB PO SCH (08:15)
[2018-08-28] MEDS: MOXIFLOXACIN HCL(OPTH) 3 ML BTL OP SCH ×2 (08:15→12:36)
[2018-08-28] MEDS: FOLIC ACID 1 MG TAB PO SCH (08:15)
[2018-08-28] MEDS: HYDROCODONE/APAP 5MG-325MG TAB PO PRN (09:09)
[2018-08-28 10:38] VITALS: BP 119/71
--- NOTE | 2018-08-28 14:35 | Discharge Summary ---
HISTORY OF PRESENT ILLNESS: Patient came with chest pain. He was found to have left lower lobe pneumonia, anemia, some stenosis in the sigmoid area. He was started on IV antibiotic. Patient is going home today. Dr. Eric Lilly will see him as an outpatient for a possible colonoscopy because of the findings and the CT of the abdomen showed possible stenosis on the left sigmoid area. Patient had a colonoscopy 3 years ago, which was normal. PHYSICAL EXAMINATION VITAL SIGNS: Blood pressure 119/71, temperature 98.5, heart rate 92 per minute, respiratory rate 18 per minute, oxygen saturation 92%. HEART: Regular rhythm. Normal S1 and S2 sounds. LUNGS: Clear bilaterally. ABDOMEN: Soft. EXTREMITIES: Show no evidence of cyanosis, edema, or trauma. LABORATORY DATA: On BMP, sodium 138, potassium 4.0, chloride 103, CO2 of 26, BUN 10, creatinine 0.85, glucose 156. On CBC, white blood count 9.29, hemoglobin 11.6, hematocrit 34.0, platelet count 267,000. PT 14.5, INR 1.04. AST 12, ALT 88, total bilirubin 0.3, alkaline phosphatase 96. FINAL IMPRESSION 1. Left lower lobe pneumonia. 2. Atypical chest pain. 3. Coronary artery disease, status post stent placement. 4. Uncontrolled diabetes mellitus type 2 with diabetic neuropathy. 5. Hypertension. 6. Hypercholesterolemia. 7. Back pain. PLAN OF TREATMENT: Continue Levaquin 500 mg daily for 5 more days. Continue Protonix 40 mg daily. Continue monitoring blood sugar a.c. and at bedtime. Continue benazepril 20 mg daily, Tylenol 325 mg q.4 hours as needed, tramadol 50 mg q.6 hours as needed, folic acid 1 mg daily, bupropion 150 mg daily, Keppra 500 mg twice a day, simvastatin 10 mg daily, Ambien 5 mg at night p.r.n. for sleep. Continue amlodipine 5 mg daily. Continue Humalog 15 units subcutaneous before meals. Continue Plavix 75 mg daily. Continue Levemir 40 units at bedtime. Continue with Flomax 0.4 mg daily, Celebrex 200 mg daily, vitamin B12 1000 mcg p.o. daily. Followup with me in a week. Follow up with Dr. Eric Lilly in a couple of weeks for possible colonoscopy. LEWIS SORIA MD Job#: [id number] PUN
== END 2018-08-28 13:33 | disposition home health service (06) | DRG 689 ==
LOC: ER 08:37 → ERHOLD 10:27 → IMCU 13:30 → MED/SURG 08-24 16:05 → OBSVTOIN 08-26 13:20
PROVIDERS: ADMIT Internal Medicine; ATTEND Internal Medicine
DX: N39.0 Urinary tract infection, site not specified (principal); J18.9 Pneumonia, unspecified organism; K56.699 Other intestinal obstruction unspecified as to partial versus complete obstruction; E87.1 Hypo-osmolality and hyponatremia; I25.10 Atherosclerotic heart disease of native coronary artery without angina pectoris; Z95.5 Presence of coronary angioplasty implant and graft; E78.5 Hyperlipidemia, unspecified; E11.65 Type 2 diabetes mellitus with hyperglycemia; E11.40 Type 2 diabetes mellitus with diabetic neuropathy, unspecified; F17.210 Nicotine dependence, cigarettes, uncomplicated; M17.0 Bilateral primary osteoarthritis of knee; M47.9 Spondylosis, unspecified; L30.9 Dermatitis, unspecified; H54.62 Unqualified visual loss, left eye, normal vision right eye; G40.909 Epilepsy, unspecified, not intractable, without status epilepticus; Z87.820 Personal history of traumatic brain injury; Z86.73 Personal history of transient ischemic attack (TIA), and cerebral infarction without residual deficits; Z79.4 Long term (current) use of insulin
CPT/HCPCS: 36415; 71045; 74177; 80048; 80053; 80061; 81001; 82150; 82550; 82553; 82607; 82728; 82746; 82948; 83540; 83690; 83880; 84443; 84466; 84484; 85025; 85045; 85610; 87040; 87086; 93005; 93306; 96372; 99284; G0378; J1756; J1956; J2270; J3420; Q9967

== ENCOUNTER 2018-09-02 12:22 | Emergency (ER) | payer MEDICARE ==
[~2018-09-02] VITALS: Ht 170.2 cm; Wt 69.9 kg
[2018-09-02 13:14] LABS: BASOPHILS % 0.2 % (0.0-1.0); EOSINOPHILS # (AUTO) 0.2 (0.0-0.4); EOSINOPHILS % 1.6 % (0.0-6.0); HEMATOCRIT 39.7 % (38.2-49.6); HEMOGLOBIN 13.1 g/dL (14.0-18.0); LYMPHOCYTES # (AUTO) 2.1 (1.0-3.2); MEAN CORPUSCULAR HEMOGLOBIN 29.1 pg (28-32); MEAN CORPUSCULAR VOLUME 88.2 fL (81-99); MONOCYTES # (AUTO) 0.8 (0.2-0.8); MONOCYTES % 6.4 % (4.4-11.3); NEUTROPHILS % 74.1 % (38.7-80.0); PLATELET COUNT 290 x10e3/uL (140-360)
[2018-09-02 13:27] LABS: ALANINE AMINOTRANSFERASE 15 IU/L (0-55); ALBUMIN 3.1 g/dL (3.5-5.0); ALBUMIN/GLOBULIN RATIO 0.5 (0.8-2.0); ALKALINE PHOSPHATASE 111 IU/L (40-150); BLOOD UREA NITROGEN 12 mg/dL (7-26); BUN/CREATININE RATIO 13 (6-25); CALCIUM 8.9 mg/dL (8.4-10.2); CARBON DIOXIDE 25 mmol/L (22-29); CHLORIDE 98 mmol/L (98-107); CREATINE KINASE 51 IU/L (30-200); CREATININE, SERUM 0.96 mg/dL (0.72-1.25); EST GLOMERULAR FILTRATION RATE > 60 ML/MIN (60-); GLUCOSE 184 mg/dL (74-118); SODIUM 134 mmol/L (136-145)
[2018-09-02] MEDS ORDERED: LIDOCAINE 5% PATCH TP SCH (13:30)
--- NOTE | 2018-09-02 13:40 | Diagnostic Imaging Report ---
Examination: Single AP view of the chest. COMPARISON: February 24, 2018 INDICATION: Chest pain DISCUSSION: Lines/tubes: None. Lungs: Left midlung (likely posterior left lower lobe) pneumonia. Pleura: No pleural effusion or pneumothorax. Heart and mediastinum: The heart and the mediastinum are unremarkable. Bones and soft tissues: No acute bony abnormalities. IMPRESSION: 1. Left midlung pneumonia. Recommend follow-up radiograph after treatment. Signed by: Dr. Tono Sebastian M.D. on 09/02/2018 1:36 PM
[2018-09-02] MEDS ORDERED: SIMVASTATIN40 MG PO (13:42)
[2018-09-02] MEDS ORDERED: LIQUID B-11000 MCG/1 PO (13:42)
[2018-09-02] MEDS ORDERED: ULTRAM 50MG50 MG PO (13:42)
[2018-09-02] MEDS ORDERED: FOLIC ACID1 MG PO (13:42)
[2018-09-02] MEDS ORDERED: PANTOPRAZOLE SO40 MG PO (13:42)
[2018-09-02] MEDS ORDERED: LEVAQUIN500 MG PO (13:54)
[2018-09-02] MEDS ORDERED: TYLENOL WITH C1 EACH PO (13:54)
== END 2018-09-02 14:00 | disposition home or self-care (01) ==
LOC: ER 12:22
DX: R07.89 Other chest pain (principal); R05 Cough; J15.9 Unspecified bacterial pneumonia; I10 Essential (primary) hypertension; E11.9 Type 2 diabetes mellitus without complications; I25.10 Atherosclerotic heart disease of native coronary artery without angina pectoris; E78.5 Hyperlipidemia, unspecified
CPT/HCPCS: 36415; 71045; 80053; 82550; 82553; 83880; 84484; 85025; 93005; 99284

== ENCOUNTER 2018-10-07 13:38 | Inpatient (IN) | payer MEDICARE ==
[~2018-10-07] VITALS: Ht 165.1 cm; Wt 65.9 kg
[~2018-10-07 13:38] MED LIST changes: +FOLIC ACID1 MG PO; +LEVAQUIN500 MG PO; +LIQUID B-11000 MCG/1 PO; +PANTOPRAZOLE SO40 MG PO; +SIMVASTATIN40 MG PO; +TYLENOL WITH C1 EACH PO; +ULTRAM 50MG50 MG PO
[2018-10-07] MEDS ORDERED: SODIUM CHLORIDE 0.9% 1000ML 1,000 ML IV STA (14:54)
[2018-10-07] MEDS ORDERED: ONDANSETRON HCL INJ 2MG/ML 2ML 2 MG/ML VIAL IV NR (14:55)
[2018-10-07 15:17] LABS: BASOPHILS # (AUTO) 0.1 (0.0-0.1); BASOPHILS % 0.3 % (0.0-1.0); EOSINOPHILS # (AUTO) 0.1 (0.0-0.4); EOSINOPHILS % 0.3 % (0.0-6.0); HEMATOCRIT 30.8 % (38.2-49.6); HEMOGLOBIN 9.8 g/dL (14.0-18.0); LYMPHOCYTES % 5.5 % (18.0-39.1); MEAN CORPUSCULAR HEMOGLOBIN 27.1 pg (28-32); MEAN CORPUSCULAR HGB CONC 31.8 g/dL (31-35); MEAN CORPUSCULAR VOLUME 85.3 fL (81-99); MONOCYTES # (AUTO) 0.9 (0.2-0.8); MONOCYTES % 4.6 % (4.4-11.3); NEUTROPHILS # (AUTO) 16.4 (2.1-6.9); NEUTROPHILS % 88.3 % (38.7-80.0); PLATELET COUNT 355 x10e3/uL (140-360); RED BLOOD COUNT 3.61 x10e6/uL (4.3-5.7); RED CELL DISTRIBUTION WIDTH 13.2 % (11.7-14.4)
[2018-10-07 15:30] LABS: INR 1.26; PROTHROMBIN TIME 16.9 seconds (11.9-14.5)
[2018-10-07 15:31] LABS: PARTIAL THROMBOPLASTIN TIME 42.5 seconds (23.8-35.5)
[2018-10-07 15:40] LABS: ALANINE AMINOTRANSFERASE 31 IU/L (0-55); ALBUMIN 2.1 g/dL (3.5-5.0); ALBUMIN/GLOBULIN RATIO 0.5 (0.8-2.0); ALKALINE PHOSPHATASE 120 IU/L (40-150); AMYLASE 16 U/L (25-125); ANION GAP 16.6 mmol/L (8-16); BLOOD UREA NITROGEN 8 mg/dL (7-26); BUN/CREATININE RATIO 9 (6-25); CALCIUM 8.1 mg/dL (8.4-10.2); CARBON DIOXIDE 25 mmol/L (22-29); CHLORIDE 97 mmol/L (98-107); CREATINE KINASE 25 IU/L (30-200); CREATININE, SERUM 0.85 mg/dL (0.72-1.25); EST GLOMERULAR FILTRATION RATE > 60 ML/MIN (60-); GLUCOSE 270 mg/dL (74-118); LIPASE 6 U/L (8-78); MAGNESIUM 1.9 MG/DL (1.3-2.1); POTASSIUM 3.6 mmol/L (3.5-5.1); SODIUM 135 mmol/L (136-145)
--- NOTE | 2018-10-07 15:43 | Diagnostic Imaging Report ---
Examination: Single AP view of the chest. COMPARISON: Portable chest 09/02/2018 INDICATION: Pneumonia IMPRESSION: 1. Lines and Tubes: None 2. Lungs are well-inflated. Interval increase in size of ill-defined opacity projecting at the level of the left hilum. Although worsening pneumonia is considered, in the appropriate clinical setting, a hilar mass is also suspected. Recommend contrast-enhanced chest CT for further evaluation. Rest of the lungs is grossly clear. 3. Cardiomediastinal silhouette is normal. Pulmonary vasculature is normal. 4. No acute bony abnormalities. Signed by: Dr. German Jarrett M.D. on 10/07/2018 3:40 PM
[2018-10-07] MEDS ORDERED: CEFEPIME 2 GM/NS 0.9% 100 ML 100 ML IV ONE (15:45)
[2018-10-07] MEDS ORDERED: VANCOMYCIN 1GM/NS 250 ML 250 ML IV ONE ×2 (15:45→19:00)
[2018-10-07] MEDS ORDERED: DIATRIZOATE MEGL/DIATRIZOA SOD 30 ML BTL PO ONE (15:47)
[2018-10-07 15:58] LABS: B-TYPE NATRIURETIC PEPTIDE2 37.1 pg/mL (0-100)
--- NOTE | 2018-10-07 15:59 | NUR ---
ULTRASOUND AT BEDSIDE FOR GALLBLADDER ULTRASOUND. NO SIGNS OF ACUTE DISTRESS NOTED AT THIS TIME.
[2018-10-07] MEDS ORDERED: AZTREONAM 2GM/NS 100ML 100 ML IV ONE (16:00)
[2018-10-07 16:20] LABS: CLARITY,URINE CLEAR (CLEAR); COLOR,URINE YELLOW (YELLOW)
[2018-10-07 16:21] LABS: BACTERIA,URINE RARE /HPF; BILIRUBIN,URINE NEGATIVE (NEGATIVE); EPITHELIAL CELLS,URINE RARE /LPF; KETONES,URINE NEGATIVE (NEGATIVE); LEUKOCYTE ESTERASE ,URINE NEGATIVE (NEGATIVE); NITRITE,URINE NEGATIVE (NEGATIVE); PROTEIN,URINE DIPSTICK NEGATIVE (NEGATIVE); RBC,URINE 0-5 /HPF (0-5); URINE UROBILINOGEN 4 mg/dL (0.2 - 1); WBC,URINE (MAN) 0-5 /HPF (0-5)
[2018-10-07 16:27] LABS: MUCUS,URINE MODERATE (RARE)
--- NOTE | 2018-10-07 17:04 | Diagnostic Imaging Report ---
EXAM: Right Upper Quadrant Ultrasound INDICATION: ^gallbladder ^Y COMPARISON: CT abdomen and pelvis 08/23/2018 TECHNIQUE: Transverse and longitudinal images of the right upper abdomen were obtained. FINDINGS: Liver: Size: 13.4 cm in the right midclavicular line, normal Appearance: Normal echogenicity, smooth contour Mass: No focal masses. Stable 0.5 x 0.3 x 0.5 cm and 0.3 cm calcifications in the left hepatic lobe and stable 1.1 x 0.5 x 0.7 cm moderate calcification in the right hepatic lobe, consistent with previously visualized calcified granulomas. Gallbladder: Stones/Sludge: None Wall: 0.3 cm Appearance: No wall thickening, pericholecystic fluid or hydrops. Sonographic Vivar's Sign: Negative Bile Ducts: Intrahepatic Ducts: No dilatation Extrahepatic Ducts: Common bile duct measures 0.3 cm, no dilatation Pancreas: Visualized portions of the pancreatic neck and proximal body are normal. Kidneys: Length: Right 10.2 cm Echogenicity: Normal Collecting System: No hydronephrosis Stone: None Cyst/Mass: None Vessels: Aorta: Visualized portions are normal Inferior Vena Cava: Visualized portions are normal Main Portal Vein: 0.7 cm, normal size with hepatopetal flow. Free Fluid: No ascites or pleural effusion IMPRESSION: 1. No stones or sonographic evidence of cholecystitis. 2. Stable hepatic calcifications, likely representing calcified granulomas. Signed by: Dr. German Jarrett M.D. on 10/07/2018 5:01 PM
--- NOTE | 2018-10-07 17:25 | NUR ---
SANGUINEOUS DRAINAGE LEFT AC IV DRESSING, PATIENT STATES "ITS LEAKING", CHANGED IV LOOP, SITE CLEANED AND CLEAN DRESSING APPLIED, DRESSING DRY AND INTACT, IV PATENT, SITE WITHOUT REDNESS, SWELLING OR DRAINAGE. TOLERATED WELL. REPOSITOINED PATIENT IN BED FOR COMFORT AND EDUCATED PATIENT AND FAMILY ON THE CURRENT PLAN OF CARE, VERBALIZED UNDERSTANDING. DENIES ANY C/O AT THIS TIME. NO SIGNS OF ACUTE DISTRESS NOTED AT THIS TIME.
--- NOTE | 2018-10-07 18:22 | Diagnostic Imaging Report ---
ADDENDUM #1 Addendum: Item #2 in the impression should read as follows: Findings in the superior segment of the left lower lobe suspicious for pulmonary abscess or focal empyema. A centrally necrotic primary bronchial adenocarcinoma is also a consideration given the presence of emphysema. Signed by: Dr. German Jarrett M.D. on 10/07/2018 6:51 PM ORIGINAL REPORT EXAMINATION: CT scan of the chest with contrast. TECHNIQUE: Spiral CT images of the chest were performed from the lung apices to the level of the adrenal glands after the intravenous administration of 100 cc of Isovue 370. Coronal and sagittal reformatted images were obtained. COMPARISON: Portable chest 10/07/2018 CLINICAL HISTORY:Left lung mass DISCUSSION: Markedly suboptimal exam, as the patient had vomiting during the exam and could not be scanned at optimal contrast phase. LINES/TUBES: None. LUNGS AND AIRWAYS: Approximately 8.5 x 7.2 x 8.3 cm thick walled subpleural mass in the superior segment of the left lower lobe (series 10, image 53), with central hypodensity, which may reflect necrosis, and contains a single focus of air (series 10, image 48). Mild ground glass opacity surrounding this lesion. Mild bilateral centrilobular emphysematous changes, predominantly in the right upper lobe. Noncalcified 6 mm nodule in the right lower lobe (series 9, image 64). 2 mm pulmonary nodule in the posterolateral right lower lobe (series 9, image 60) . 2-3 mm pulmonary nodule in the lateral right middle lobe (series 9, image 53). Dependent atelectatic changes in the right lower lobe No other nodules or any consolidation. The airways are clear, without endobronchial lesions. PLEURA: Small left pleural effusion, which is partly loculated in the left upper lobe HEART AND MEDIASTINUM: Thyroid is unremarkable. Heart size is normal. No pericardial effusion. Atherosclerotic calcification of the coronary arteries and thoracic aorta. The aorta is nonaneurysmal. Main pulmonary artery is normal in caliber. LYMPH NODES: Enlarged AP window nodes which measure 1.3 and 1.2 cm in short axis (series 10, images 35 and 39). No other mediastinal nodes. Difficult to assess for hilar adenopathy given the relative lack of intravenous contrast. No axillary adenopathy ABDOMEN: Please see CT abdomen and pelvis performed same day for further detail. BONES AND SOFT TISSUES: No aggressive lytic lesions. No cortical erosion or destruction is noted in the posterior aspects of the left seventh and eighth ribs which are adjacent to the above-described mass. Degenerative disc changes in the thoracic spine. Soft tissues are unremarkable. IMPRESSION: 1. Suboptimal exam as it could not be performed during optimal contrast administration as patient had a vomiting episode. 2. Findings in the superior segment of the right left lower lobe suspicious for pulmonary abscess or focal empyema. A centrally necrotic primary bronchogenic carcinoma is also a consideration given the presence of emphysema. 3. Pulmonary nodules in the right lower and right middle lobe may represent metastatic disease if above-described mass is neoplastic. 4. Enlarged AP window nodes, which may be metastatic versus reactive. Difficult to assess for hilar adenopathy given the relative lack of intravenous contrast. Signed by: Dr. German Jarrett M.D. on 10/07/2018 6:18 PM
--- NOTE | 2018-10-07 18:29 | Diagnostic Imaging Report ---
EXAMINATION: CT of the abdomen and pelvis with contrast. TECHNIQUE: Spiral CT images of the abdomen and pelvis were performed from the lung bases to the lesser trochanters after the intravenous administration of 100 cc of Isovue 300 and the oral administration of dilute Gastrografin. Coronal and sagittal reformatted images were obtained. COMPARISON: None. CLINICAL HISTORY:Abdominal pain, nausea and vomiting DISCUSSION: Markedly suboptimal exam, due to patient having an episode of vomiting with delay in contrast bolus. ABDOMEN/PELVIS: LOWER THORAX:Please see CT chest performed same day for further detail. HEPATOBILIARY: Multiple calcified granulomas. No intra or extrahepatic biliary ductal dilation. GALLBLADDER: No radio-opaque stones or sludge. No wall thickening. SPLEEN: No splenomegaly. Multiple calcified splenic granulomas. PANCREAS: No focal masses or ductal dilatation. ADRENALS: 3.8 x 2.9 cm mass in the right adrenal gland (series 7, image 53). 1.2 x 0.8 cm nodular lesion in the left adrenal gland (series 7, image 58). KIDNEYS/URETERS: No hydronephrosis or evidence of obstruction. Contrast is noted in the collecting system, pelvis and ureters, without focal lesions. No solid masses. PELVIC ORGANS/BLADDER: Bladder is unremarkable. Prostate is enlarged. PERITONEUM/RETROPERITONEUM: No free air or fluid. LYMPH NODES: No intra-abdominal, retroperitoneal, pelvic or inguinal lymphadenopathy. VESSELS: The celiac trunk,superior and inferior mesenteric and bilateral renal arteries are patent The portal, superior mesenteric and splenic veins are patent. GI TRACT: No bowel dilation or evidence of obstruction. No pericolonic inflammatory changes. Descending and sigmoid colon diverticulosis, without diverticulitis. BONES AND SOFT TISSUE: No aggressive lytic lesions. Degenerative disc changes in the lumbosacral spine, predominantly at L3-L4. Facet hypertrophy L3-S1. No soft tissue abnormalities. IMPRESSION: 1. Markedly limited exam, as described. 2. Indeterminate 3.8 cm mass in the right adrenal gland. Given the pulmonary findings, an adrenal metastatic lesion is a consideration. 3. Indeterminate 1.2 cm nodular lesion in the left adrenal gland. Signed by: Dr. German Jarrett M.D. on 10/07/2018 6:25 PM
[2018-10-07] MEDS ORDERED: MORPHINE SULFATE 2 MG/ML SYR 1ML IV NR (18:45)
--- NOTE | 2018-10-07 18:47 | NUR ---
VERBAL REPORT GIVEN TO DEMETRIUS ELDER.
[2018-10-07] MEDS ORDERED: MORPHINE SULFATE INJ 4 MG/ML INJ 1ML IV NR (19:00)
[2018-10-07] MEDS ORDERED: SODIUM CHLORIDE 0.9% 50ML 50 ML ONE (19:10)
[2018-10-07] MEDS ORDERED: IOPAMIDOL 370 MG/ML 200 ML INFUS..BTL INJ ONE (19:11)
[2018-10-07] MEDS ORDERED: PANTOPRAZOLE 40 MG 10ML VIAL IV STA (19:52)
[2018-10-07] MEDS ORDERED: DEXTROSE 50% SYRINGE 50 ML IV PRN (20:00)
[2018-10-07] MEDS ORDERED: MORPHINE SULFATE 2 MG/ML SYR 1ML IV PRN (20:00)
[2018-10-07] MEDS: SODIUM CHLORIDE 0.9% 1000ML 1,000 ML IV SCH (20:07)
--- NOTE | 2018-10-07 20:07 | NUR ---
IVF DECREASED TO 100CC/HR PER MD ORDER.
[2018-10-07] MEDS: INSULIN LISPRO 100 UNIT/1 ML 3ML VIAL SQ SCH (21:08)
[2018-10-07] MEDS ORDERED: CEFEPIME 2 GM/NS 0.9% 100 ML 100 ML IV SCH (23:55)
[2018-10-08] VITALS (8 sets, daily range): BP systolic 115–157; BP diastolic 59–88
[2018-10-08] MEDS ORDERED: MORPHINE SULFATE INJ 4 MG/ML INJ 1ML ONE ×2 (00:02→10:48)
[2018-10-08] MEDS ORDERED: AZTREONAM 1 GM VIAL ONE ×2 (00:03→04:45)
[2018-10-08] MEDS: AZTREONAM 2GM/NS 100ML 2 GM in AZTREONAM 2GM/NS 100ML 100 ML IV SCH ×4 (00:03→21:04)
[2018-10-08] MEDS ORDERED: SODIUM CHLORIDE 0.9% 100 ML ONE (00:03)
[2018-10-08 00:42] LABS: CREATINE KINASE MB 0.4 ng/mL (0-5.0)
[2018-10-08] MEDS ORDERED: VANCOMYCIN 1GM/NS 250 ML 250 ML IV SCH ×2 (04:00→08:00)
[2018-10-08] MEDS: SODIUM CHLORIDE 0.9% 1000ML 1,000 ML IV SCH ×2 (04:38→15:52)
[2018-10-08] MEDS ORDERED: CEFEPIME HCL 2 GM VIAL ONE (04:42)
[2018-10-08] MEDS ORDERED: SODIUM CHLORIDE 0.9% 200 ML ONE (04:45)
[2018-10-08 05:03] LABS: BASOPHILS % 0.2 % (0.0-1.0); EOSINOPHILS # (AUTO) 0.1 (0.0-0.4); EOSINOPHILS % 0.4 % (0.0-6.0); HEMATOCRIT 30.8 % (38.2-49.6); HEMOGLOBIN 9.7 g/dL (14.0-18.0); LYMPHOCYTES # (AUTO) 1.7 (1.0-3.2); LYMPHOCYTES % 7.9 % (18.0-39.1); MEAN CORPUSCULAR HEMOGLOBIN 26.7 pg (28-32); MEAN CORPUSCULAR HGB CONC 31.5 g/dL (31-35); MEAN CORPUSCULAR VOLUME 84.8 fL (81-99); MONOCYTES # (AUTO) 1.2 (0.2-0.8); MONOCYTES % 5.3 % (4.4-11.3); NEUTROPHILS # (AUTO) 18.8 (2.1-6.9); NEUTROPHILS % 85.2 % (38.7-80.0); PLATELET COUNT 317 x10e3/uL (140-360); RED BLOOD COUNT 3.63 x10e6/uL (4.3-5.7); RED CELL DISTRIBUTION WIDTH 13.1 % (11.7-14.4)
[2018-10-08 05:19] LABS: CREATINE KINASE 24 IU/L (30-200)
[2018-10-08 05:43] LABS: ALANINE AMINOTRANSFERASE 24 IU/L (0-55); ALBUMIN 1.9 g/dL (3.5-5.0); ALBUMIN/GLOBULIN RATIO 0.4 (0.8-2.0); ALKALINE PHOSPHATASE 104 IU/L (40-150); ANION GAP 13.4 mmol/L (8-16); BLOOD UREA NITROGEN 6 mg/dL (7-26); BUN/CREATININE RATIO 8 (6-25); CALCIUM 8.2 mg/dL (8.4-10.2); CARBON DIOXIDE 27 mmol/L (22-29); CHLORIDE 101 mmol/L (98-107); CREATININE, SERUM 0.75 mg/dL (0.72-1.25); EST GLOMERULAR FILTRATION RATE > 60 ML/MIN (60-); GLUCOSE 144 mg/dL (74-118); POTASSIUM 4.4 mmol/L (3.5-5.1); SODIUM 137 mmol/L (136-145)
[2018-10-08] MEDS: INSULIN LISPRO 100 UNIT/1 ML 3ML VIAL SQ SCH ×4 (07:30→21:00)
[2018-10-08] MEDS: CEFEPIME 2 GM/NS 0.9% 100 ML 100 ML IV SCH ×3 (08:37→22:00)
[2018-10-08] MEDS ORDERED: PANTOPRAZOLE 40 MG 10ML VIAL IV SCH (09:00)
--- NOTE | 2018-10-08 09:01 | NUR ---
CM MET WITH PT AND FAMILY IN ROOM REGARDING DC PLANS DISCUSSED PLAN OF CARE WITH PT AND HIS CHOICE IN THE MATTER OF DISCHARGE PLANNING PT LIVES WITH HIS DTR PENNY IN A [facility] IN [place] PT DRIVES PT IS DIABETIC AND TAKES INSULIN THREE TIMES A DAY DOES NOT HAVE A GLUCOMETER PT'S DTR RACHEL AND GRAND-DAUGHTER CATRACHITO OLIVERA AT BEDSIDE THEY STATE PT IS BECOMING WEAKER AND EATING LESS STATES HE ONLY EATES ONE MEAL A DAY THEY ARE INTERESTED IN SNF EVAL AND P.T. EVAL WHILE IN THE HOSPITAL ALSO REQUESTING INFORMATION FOR PROVIDER SERVICES CM PROVIDED DTR RACHEL WITH PROVIDER SERVICE INFORMATION FOR HER TO CALL AND APPLY GAVE PT MY CARD FOR QUESTIONS/CONCERNS PUT MY NAME ON PT'S WHITE BOARD ALONG WITH MY PHONE NUMBER NOTE LEFT ON CHART FOR DR SORIA TO ORDER P.T. EVAL, DIABETIC EDUCATION AND POSSIBLE SNF EVAL CM TO FOLLOW
[2018-10-08] MEDS ORDERED: PHYTONADIONE 10 MG/ML AMP SQ NR (10:15)
[2018-10-08 10:26] LABS: % IRON SATURATION 12 % (15-50); IRON 19 ug/dL (65-175); TOTAL IRON BINDING CAPACITY 158 ug/dL (261-478); TRANSFERRIN 113 mg/dL (174-364)
[2018-10-08] MEDS: MORPHINE SULFATE INJ 4 MG/ML INJ 1ML IV PRN ×2 (11:04→15:02)
[2018-10-08] MEDS ORDERED: CLINDAMYCIN PHOS 900MG/ 50ML 50 ML IV SCH (12:00)
[2018-10-08] MEDS ORDERED: ACETAMINOPHEN/CODEINE 300MG - 30MG TAB PO PRN ×2 (12:00→12:15)
[2018-10-08] MEDS ORDERED: NON-FORMULARY MEDICATION (Insulin Detemir (Levemir) 40 UNITS) SQ SCH (12:00)
--- NOTE | 2018-10-08 12:07 | NUR ---
Dr. toth at bedside. updated MD with skin rash to right upper shoulder, pain control and held insulin this morning and lunch as pt NPO for IR biopsy. just notified by radiology that bx wont be completed until or monday of this week as plavix needs to be held x 5days. notified dr. toth okay to start ada diet and consult dr. reid. consent completed for bx.
--- NOTE | 2018-10-08 12:10 | NUR ---
dr. osman evaluated patient this morning. new orders received. notified MD of patient status and skin status.
--- NOTE | 2018-10-08 12:32 | Progress Note ---
DATE: INTERNAL MEDICINE PROGRESS NOTE SUBJECTIVE: VITAL SIGNS: INCOMPLETE REPORT Job#: [id number] EV
[2018-10-08] MEDS: TAMSULOSIN HCL 0.4 MG CAP PO SCH (12:38)
[2018-10-08] MEDS: BUPROPION HCL 150 MG TABCR PO SCH (12:38)
[2018-10-08] MEDS: TRAMADOL HCL 50 MG TAB PO SCH ×4 (12:38→19:16)
[2018-10-08] MEDS: LEVETIRACETAM 500 MG TAB PO SCH ×2 (12:38→20:44)
[2018-10-08] MEDS: FOLIC ACID 1 MG TAB PO SCH (12:38)
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
[2018-10-08] MEDS: CYANOCOBALAMIN 1,000 MCG TAB PO SCH (13:00)
[2018-10-08] MEDS: CELECOXIB 200 MG CAP PO SCH (13:00)
[2018-10-08] MEDS: PANTOPRAZOLE SOD 40 MG TABEC PO SCH (13:00)
--- NOTE | 2018-10-08 13:03 | History and Physical ---
HISTORY OF PRESENT ILLNESS: A 72-year-old male, past medical history positive for COPD, heavy smoker. The patient has got a history of hypertension, diabetes. Apparently came here with abdominal pain. He was found to have some lung masses and an adrenal mass. Admitted to the hospital. He was also complaining of abdominal pain and vomiting. REVIEW OF SYSTEMS: CARDIOVASCULAR: No chest pain or palpitation. RESPIRATORY: No shortness of breath. No cough. GASTROINTESTINAL: He had nausea, vomiting, epigastric pain. No diarrhea. No blood in the stools. No black stools. GENITOURINARY: No frequency, no dysuria. ALLERGIES: HE IS ALLERGIC TO CLINDAMYCIN, DOXYCYCLINE, ASPIRIN, CODEINE, IODINE, SULFA DRUGS, AND PENICILLIN. PAST MEDICAL HISTORY: Positive for COPD, diabetes, hypertension, diabetic neuropathy, history of benign prostatic hypertrophy, and coronary artery disease status post four stents. SOCIAL HISTORY: He smoked, but he quit four months ago. No alcohol. PHYSICAL EXAMINATION: VITAL SIGNS: Blood pressure 134/63, temperature 98.5, heart rate 70 per minute, respiratory rate 18 per minute. Oxygen saturation 99%. HEART: Shows regular rhythm. Normal S1 and S2 sounds. LUNGS: Clear bilaterally. ABDOMEN: Soft. No tenderness, no distention, no visceromegaly. EXTREMITIES: Show no evidence of cyanosis, edema or trauma. On the BMP: Sodium 137, potassium 4.4, chloride 101, CO2 27, BUN 6, creatinine 0.75, glucose 144. On the CBC: White blood count 22,000, hemoglobin 9.7, hematocrit 30.8, platelet count 317,000. PT 16.9, INR 1.26, PTT 42.5. AST 12, ALT 24, total bilirubin 0.4, alkaline phosphatase 104. A CT of the abdomen showed the following: Indeterminate 3.8 cm mass in the right adrenal gland. Metastatic lesion is a consideration. Indeterminate 1.2 cm lesion in the left adrenal gland. Also he has got a right lung mass versus cavitation. FINAL IMPRESSION: 1. Lobar pneumonia. 2. Abdominal pain. 3. Right lung tumor. 4. Vomiting. 5. 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 6. Leukocytosis. 7. Anemia. 8. Benign prostatic hypertrophy. PLAN OF TREATMENT: Continue aztreonam 2 grams IV q.8 h. Cefepime 1 gram IV q.8 h. Metronidazole 500 mg IV q.8 h. Continue bupropion 150 mg daily. Morphine 2 mg IV q.3 h. as needed. Zofran 4 mg IV q.4 h. as needed. Albuterol q.12 h. Keppra 500 mg twice a day. Monitor blood sugar a.c. and nightly. Folic acid 1 mg daily. Protonix 40 mg daily. Flomax 0.4 mg daily. Simvastatin 20 mg daily. We are going to resume the insulin once the patient is eating. Dr. Velasquez has been consulted from the pulmonary point of view because of the possibility of lung nodules from metastases. Dr. Berkowitz has been consulted from the hematology point of view because of the possibility of lung masses. We are going to consult Dr. Eric Lilly for gastroenterology because the patient is complaining of epigastric pain and vomiting. Abdominal ultrasound did not show any evidence of any gallstones or gallbladder sludge or any other abdominal pathology to explain the symptoms. Dr. Menjivar is going to be consulted from the cardiology point of view, because the patient has four stents and he needs a lung biopsy, for the possibility of holding the Plavix to see if it is safe for him to have the biopsy. I discussed the case with the patient. Patient's workup is in progress. The rest of the treatment will be depending on the workup outcome. Job#: [id number] COOPER
[2018-10-08 13:35] LABS: CREATINE KINASE 26 IU/L (30-200)
[2018-10-08] MEDS: METRONIDAZOLE 250MG/NS 50ML 50 ML IV SCH ×2 (13:44→22:00)
--- NOTE | 2018-10-08 14:12 | NUR ---
Nutrition Intervention Assessment RD Recommendation(s) for Physician: - When medically feasible ADAT to goal of 1800 ADA, GI Soft - Recommend Glucerna Shake TID when diet advanced - Pt meets criteria for moderate protein calorie malnutrition Plan of Care: RD following, monitoring for tolerance and adequacy, ONS rec Nutrition reason for involvement: RN consult- reason not specified RD Assessment 10/08: 72 YOM admitted for abdominal with new dx of R lung nodules and nodules on adrenal glands with pending pathology- IR consulted for biopsy. Pt seen today per RN screen. Pt reports poor appetite and intake for months, can not quantify time frame. Pt reports UBW of 198# 1 year ago, noted 18% wt loss in 1 year. Pt states he has been eating 1 meal per day and does not drink any supplements at home 2/2 no access to them. Pt was unable to identify GI distress symptoms at time of visit, was agitated at that time 2/2 to pain and requesting ice chips- RN notified of pt status. Chart reviewed. Will monitor and continue to follow. Principal Problems/Diagnoses: 1. Abdominal pain 2. PNA 3. Adrenal mass PMH: PNA, COPD, DM, HTN GI: Abdominal pain, no BM recorded, pt could not specify LBM Skin: WDL Labs: 10/08: Na 137, K 4.4, BUN 6, Cr 0.75, Gluc 144, Ca 8.2 Meds: Vitamin B12, zocor, protonix, humalog, levemir, lispro, wellbutrin, keppra, folic acid, zofran Ht: 67 in Wt: 162.19 lb BMI: 25.4 kg/m2 IBW: 148 lb Malnutrition Evaluation (10/08/2018) The patient meets criteria for unspecified MODERATE protein-calorie malnutrition. Energy intake: <75% of estimated energy requirements for >1 month Weight loss: <20% in 1 year Fat loss: Eyes slightly hollow look Muscle loss: Clavicle visible Supporting Evidence: Fluid accumulation: none Functional Status: unable to evaluate Nutrition Prescription (Diet Order): NPO Estimated Nutritional Needs: Calories: 9979-1048 kcal (20-25 kcal/kg/d) Weight used : IBW Protein: 67-101 g (1-1.5g/kg/d) Weight used: IBW Diet Adequacy: Not meeting calorie needs, Not meeting protein needs (NPO) Diet Education Needs Assessment: Diet education not indicated, pt on temporary or transitional diet Nutrition Care Level: Mod Nutrition Diagnosis: Inadequate oral intake related to current medical status as evidenced by pt being NPO. Goal: Patient will meet 75-100% of estimated needs by follow up Progress: N/A Interventions: Texture and CHO modified diet, Commercial beverage Monitoring/Evaluation: Total energy intake, Total protein intake, Modified diet, Liquid supplement, Weight change Signed: Taina Clark RD, LD, CNSC
[2018-10-08] MEDS ORDERED: INSULIN LISPRO 20 UNIT SQ SCH (16:30)
[2018-10-08] MEDS ORDERED: INSULIN LISPRO 100 UNIT/1 ML 3ML VIAL SQ SCH (16:30)
[2018-10-08] MEDS ORDERED: SIMVASTATIN 40 MG TAB PO SCH (17:00)
--- NOTE | 2018-10-08 17:17 | Consultation ---
DATE OF CONSULTATION: October 08, 2018 CARDIAC CONSULTATION REASON FOR CONSULTATION: Cardiac evaluation and clearance for biopsies. HISTORY: A 72-year-old gentleman who is very well known to me. He is very poor historian. He is known with multiple medical health problems including coronary artery disease status post multiple PCIs in the past, latest being in April 2016. Since that time patient jamilah is doing relatively well with no angina. He comes to this institution several times with nausea, vomiting, chest pain, had more of nausea and vomiting and abdominal pain. He had several treatments for that. He came also this time with shortness of breath, nausea, vomiting and not feeling well. His chest x-ray is suggestive of right/left lower lobe cavitating lesion, possible an abscess or possible bronchogenic carcinoma. He is considered for biopsy. Plavix to be stopped, and Interventional Radiology and Medicine want me to evaluate him to see if we can stop Plavix and to follow his cardiac issue. Patient's other problems include very severe advanced diabetes mellitus, severe end-organ damage, advanced COPD, seizure disorder. Cardiac-watson he does have chest pain, seems to be atypical for coronary artery disease. He does have easy fatigability, shortness of breath on minimal activity. He does have cough. No pleuritic chest pain. He does have repeated bouts of bloating, indigestion. No hematemesis. No melena. REVIEW OF SYSTEMS: Was done to all 14 systems and will be summarized for clarity, concentrating on most positive and negative important symptoms. GENERAL: No fever. No chills. No night sweats. No weight gain. No weight loss. CARDIAC: As per above. PULMONARY: No cough. No hemoptysis. No pleuritic chest pain. GI: Repeated bloating, indigestion. No hematemesis. No melena. : Increased frequency of urination. No hematuria. No dysuria. NEUROMUSCULAR: Chronic back pain, knee pain and leg pain. HEENT: Remarkable for left eye blindness following an accident at younger age. HEMATOLOGY: Past history of low platelet counts but no overt bleeding and his platelets almost back to normal. NEUROLOGICAL: Severe peripheral neuropathy and history of seizure disorder on Keppra. SOCIAL HISTORY: He is . He is a smoker. He does not drink alcohol. He is retired from [employer]. MEDICATIONS: Home medications include Norvasc 10 mg a day. Plavix 75 mg a day. Crestor 10 mg a day. Benazepril 20 mg a day. Flomax 0.4 mg a day. Keppra 500 mg twice a day. Lantus insulin. Humalog. Celexa. Metoprolol 25 mg twice a day. Following admission, patient started on aztreonam and cefepime. ALLERGIES: PATIENT DOES HAVE REACTION TO NONSTEROIDAL ANTI-INFLAMMATORY WITH FLASH AND ANGIOEDEMA. PAST MEDICAL HISTORY: 1. Coronary artery disease, PCI to the LAD in year 1999. 2. PCI and stenting of the circumflex using 3 x 12 Integrity stent and the PDA of the circumflex using 2.75 x 12 stent in 2009. 3. PCI to the mid LAD in April 2016 using 2.5 x 16 Promus Premier stent. 4. Hypertension. 5. Hypercholesteremia. 6. Degenerative joint disease. 7. Smoker. 8. Left eye blindness. 9. Chronic lung disease. 10. Right and left inguinal hernia surgery. 11. History of eczema and chronic scratching and itching. 12. Hiatus hernia. 13. Gastroparesis. 14. Past history of giardiasis. 15. Past history of low platelets with good recovery. 16. Seizure disorder. 17. Major trauma to the head at younger age with left eye blindness. FAMILY HISTORY: Strongly positive for coronary artery disease. Almost every family member has coronary artery disease. PHYSICAL EXAMINATION: VITALS: Height of 5 feet 7 inches, weight of 162 pounds. Blood pressure 130/60. Heart rate of 70. Respiratory rate of 18. HEENT: Remarkable for the left eye blindness and also decreased vision in the right eye, and deformity of the left eye is noted. NECK: No elevation of jugular venous pulsation. No lymphadenopathy. CHEST: Decreased air entry, decreased lung expansion. Increased expiratory phase. Few crackles. HEART: PMI 5th left intercostal space. Normal 1st and 2nd heart sounds with ejection systolic murmur. ABDOMEN: Soft with good bowel sounds. No organomegaly. No bruits. EXTREMITIES: Skin lesions and scratches noted. NEUROLOGIC: Neck is supple. Artificial left eye. No gross motor deficits. LABORATORY DATA: Hemoglobin of 9.7, hematocrit 31%, platelet count of 317,000, white blood cell count of 22,000. BUN of 6, creatinine of 0.8, sodium of 137, potassium of 4.4. INR of 1.3. EKG: No acute changes. IMPRESSION AND PLAN: 1. Admission with shortness of breath, abnormal chest x-ray, possible empyema, possible underlying bronchogenic carcinoma. 2. Coronary artery disease with several interventions with stable angina. 3. Diabetes mellitus. 4. Hypertension. 5. Hypercholesteremia. 6. Smoker. 7. Chronic obstructive pulmonary disease. 8. Seizure disorder. 9. Chronic skin rash and itching. Cardiac-watson will go ahead and will stop the Plavix. Patient is cleared for bronchoscopy or lung biopsy as deemed needed to take care of this patient's presentation. His cardiac risks are acceptable but not zero. All this explained and discussed with the patient and will follow patient's progression with you. Job#: [id number] COOPER
--- NOTE | 2018-10-08 18:21 | NUR ---
notified Dr. Carvalho of evening blood glucose 106mg/dl. okay to hold insulin at this time and okay to stop ac insulin and continue only the ssi. pt c/o not wanting to eat solid food. okay to change diet to full liquid until appetite improves.
--- NOTE | 2018-10-08 19:06 | NUR ---
gave nursing report to manager night
--- NOTE | 2018-10-08 19:30 | NUR ---
Received the patient calm in bed, no complaints of pain or nausea at the moment
[2018-10-08] MEDS: SIMVASTATIN 20 MG TAB PO SCH (20:44)
[2018-10-08] MEDS: IPRATROPIUM BROMIDE 0.06% 42 MCG NASPR NS SCH ×2 (21:00→21:08)
[2018-10-08] MEDS: INSULIN DETEMIR 100 UNIT/ML PEN SQ SCH (21:00)
--- NOTE | 2018-10-08 21:00 | NUR ---
Patient blood glucose 148 due for a sliding scale and Levemir, with held. Patient has been NPO and not feeding well, for close monitoring.
[2018-10-09] VITALS (8 sets, daily range): BP systolic 115–137; BP diastolic 60–78
--- NOTE | 2018-10-09 03:00 | NUR ---
Patient complaining of abdominal and right arm pain. given pain medicine as prescribed and reassured
[2018-10-09] MEDS: MORPHINE SULFATE INJ 4 MG/ML INJ 1ML IV PRN ×3 (04:30→17:00)
[2018-10-09] MEDS: METRONIDAZOLE 250MG/NS 50ML 50 ML IV SCH ×3 (04:55→22:00)
[2018-10-09] MEDS: ONDANSETRON HCL INJ 2MG/ML 2ML 2 MG/ML VIAL IV PRN ×2 (04:57→08:35)
--- NOTE | 2018-10-09 05:00 | NUR ---
Patient complaining of persistent nausea not alleviated by medication, also complains of not having been able to have a bowel movement which is unlike his routine, due for review by Dr White. patient reassured
[2018-10-09 05:11] LABS: BASOPHILS # (AUTO) 0.1 (0.0-0.1); BASOPHILS % 0.3 % (0.0-1.0); EOSINOPHILS # (AUTO) 0.3 (0.0-0.4); EOSINOPHILS % 1.5 % (0.0-6.0); HEMATOCRIT 28.2 % (38.2-49.6); LYMPHOCYTES # (AUTO) 1.5 (1.0-3.2); LYMPHOCYTES % 8.2 % (18.0-39.1); MEAN CORPUSCULAR HGB CONC 31.9 g/dL (31-35); MEAN CORPUSCULAR VOLUME 84.7 fL (81-99); MONOCYTES % 5.2 % (4.4-11.3); NEUTROPHILS # (AUTO) 15.8 (2.1-6.9); NEUTROPHILS % 83.6 % (38.7-80.0); PLATELET COUNT 281 x10e3/uL (140-360); RED BLOOD COUNT 3.33 x10e6/uL (4.3-5.7); RED CELL DISTRIBUTION WIDTH 13.2 % (11.7-14.4)
[2018-10-09 05:22] LABS: INR 1.19; PROTHROMBIN TIME 16.2 seconds (11.9-14.5)
[2018-10-09 05:23] LABS: PARTIAL THROMBOPLASTIN TIME 45.1 seconds (23.8-35.5)
[2018-10-09 05:29] LABS: ANION GAP 11.6 mmol/L (8-16); BLOOD UREA NITROGEN 8 mg/dL (7-26); BUN/CREATININE RATIO 12 (6-25); CALCIUM 7.5 mg/dL (8.4-10.2); CARBON DIOXIDE 23 mmol/L (22-29); CHLORIDE 103 mmol/L (98-107); CREATININE, SERUM 0.68 mg/dL (0.72-1.25); EST GLOMERULAR FILTRATION RATE > 60 ML/MIN (60-); GLUCOSE 140 mg/dL (74-118); POTASSIUM 3.6 mmol/L (3.5-5.1); SODIUM 134 mmol/L (136-145)
[2018-10-09] MEDS: AZTREONAM 2GM/NS 100ML 2 GM in AZTREONAM 2GM/NS 100ML 100 ML IV SCH ×3 (05:52→21:00)
--- NOTE | 2018-10-09 06:15 | NUR ---
Reviewed by Dr Lilly, concerns mentioned.
--- NOTE | 2018-10-09 07:12 | NUR ---
handed over stable
[2018-10-09] MEDS: INSULIN LISPRO 100 UNIT/1 ML 3ML VIAL SQ SCH ×4 (07:53→19:59)
[2018-10-09] MEDS: CEFEPIME 2 GM/NS 0.9% 100 ML 100 ML IV SCH ×3 (08:14→23:00)
[2018-10-09] MEDS: PANTOPRAZOLE SOD 40 MG TABEC PO SCH (08:14)
[2018-10-09] MEDS: LEVETIRACETAM 500 MG TAB PO SCH ×2 (08:22→20:53)
[2018-10-09] MEDS: CYANOCOBALAMIN 1,000 MCG TAB PO SCH (08:22)
[2018-10-09] MEDS: TAMSULOSIN HCL 0.4 MG CAP PO SCH (08:22)
[2018-10-09] MEDS: FOLIC ACID 1 MG TAB PO SCH (08:22)
[2018-10-09] MEDS: CELECOXIB 200 MG CAP PO SCH (08:22)
[2018-10-09] MEDS: BUPROPION HCL 150 MG TABCR PO SCH (08:22)
[2018-10-09] MEDS ORDERED: CLOPIDOGREL BISULFATE 75 MG TAB PO SCH (09:00)
[2018-10-09] MEDS ORDERED: NON-FORMULARY MEDICATION (Celecoxib (Celebrex) 200 MG) PO SCH (09:00)
[2018-10-09] MEDS: IPRATROPIUM BROMIDE 0.06% 42 MCG NASPR NS SCH (09:00)
[2018-10-09] MEDS ORDERED: CYANOCOBALAMIN PO SCH (09:00)
--- NOTE | 2018-10-09 12:30 | NUR ---
Patient ambulated in to restroom and shower and shampoo with standby assistance; linens and changed.
[2018-10-09] MEDS: SODIUM CHLORIDE 0.9% 1000ML 1,000 ML IV SCH ×2 (15:01→15:39)
[2018-10-09] MEDS ORDERED: DIPHENHYDRAMINE HCL 25 MG CAP PO PRN (18:45)
--- NOTE | 2018-10-09 19:09 | NUR ---
Consent for EGD completed; Dr Atkinson to bedside; contact isolation in place for probable scabies; bedside report given to TAPAN Shea.
--- NOTE | 2018-10-09 19:30 | NUR ---
patient recieved awake, alert, lying quietly in bed. vss. no c/o pain noted. ivf continue to infuse without difficulty. pm assessment complete. daughter noted at the bedside. patient/daughter instructed to call for assistance when needed.
[2018-10-09] MEDS: INSULIN DETEMIR 100 UNIT/ML PEN SQ SCH (20:01)
[2018-10-09] MEDS: SIMVASTATIN 20 MG TAB PO SCH (20:53)
[2018-10-09] MEDS: MIRTAZAPINE 15 MG TAB PO SCH (20:53)
--- NOTE | 2018-10-09 20:53 | Progress Note ---
DATE: October 09, 2018 INTERNAL MEDICINE PROGRESS NOTE SUBJECTIVE: Patient is not complaining of any significant condition except for rash on the skin appetite. PHYSICAL EXAMINATION: VITAL SIGNS: Blood pressure 137/70, temperature 97.9, heart rate 75 per minute, respiratory rate 19 per minute, oxygen saturation 99%. HEART: Shows regular rhythm. Normal S1 and S2 sounds. LUNGS: Clear bilaterally. ABDOMEN: Soft. EXTREMITIES: Showed no evidence of cyanosis, edema, or trauma. LABS: On the blood work, BMP shows sodium 134, potassium 3.6, chloride 103, CO2 23, BUN 9, creatinine 0.66, glucose 140. On the CBC: White blood count 18,800, hemoglobin 9.0, hematocrit 28.2, platelet count 291,000. PT 16.2, INR 1.19, PTT 45.1. AST 12, ALT 24, total bilirubin 0.4, alkaline phosphatase was 104. FINAL IMPRESSION: 1. Lobar pneumonia. 2. Abdominal pain. 3. Lung nodules, rule out lung cancer. 4. Adrenal mass, rule out metastasis. 5. Vomiting, which is resolved. 6. Uncontrolled diabetes mellitus type 2 with diabetic neuropathy. 7. Leukocytosis. 8. Anemia. 9. Benign prostatic hypertrophy. PLAN OF TREATMENT: The patient is going to go for an EGD tomorrow due to difficulty swallowing. He is going to also have a lung biopsy most likely on Monday, Plavix has been placed on hold because of that. Rest of medications are going to be aztreonam 2 g IV q.12h., cefepime 1 g IV q.8h., metronidazole 500 mg IV q.8h., albuterol q.12h., Keppra 500 mg twice a day, Celebrex 200 mg daily, morphine 2 mg IV q.3h. as needed for pain, Zofran 4 mg IV q.4h. as needed for vomiting, folic acid 1 mg daily, Protonix 40 mg daily, Vitamin B12 1000 mcg daily. Monitor blood sugar a.c. and at bedtime. Flomax 0.4 mg daily, simvastatin 20 mg daily. Levemir 40 units at bedtime as long as the patient has a good appetite and the blood sugar is more than 120. Continue bupropion 150 mg daily. Tylenol with Codeine q.6h. as needed, and we are going to discontinue . I discussed the case with the family at the bedside. All questions have been answered. I discussed the case with nursing staff also. We are going to cream to the skin rash which is suspicious for scabies and he is going to be on contact isolation. He is going to get Benadryl 25 mg p.o. q.6h. as needed for itching. Job#: [id number]
[2018-10-10] VITALS (7 sets, daily range): BP systolic 131–148; BP diastolic 65–84
--- NOTE | 2018-10-10 | NUR ---
patient appears to be resting quietly. no c/o pain noted. Dr. Lilly here to see patient. patient remains npo for egd in am. daughter remains at the bedside.
[2018-10-10] MEDS: ONDANSETRON HCL INJ 2MG/ML 2ML 2 MG/ML VIAL IV PRN ×2 (04:00→17:20)
[2018-10-10] MEDS: MORPHINE SULFATE INJ 4 MG/ML INJ 1ML IV PRN ×3 (04:00→21:43)
--- NOTE | 2018-10-10 04:00 | NUR ---
patient medicated with morphine 2 mg and zofran 4 mg ivp for c/o abd pain 05/04. bp 146/72 hr 80 rr 16 02 sats 94% on room air. family remains at the bedside. patient remains npo for egd this am. patient/ family member verbalizes understanding of this.
[2018-10-10] MEDS: AZTREONAM 2GM/NS 100ML 2 GM in AZTREONAM 2GM/NS 100ML 100 ML IV SCH ×3 (05:00→22:30)
[2018-10-10] MEDS: CEFEPIME 2 GM/NS 0.9% 100 ML 100 ML IV SCH ×3 (05:30→22:30)
[2018-10-10] MEDS: SODIUM CHLORIDE 0.9% 1000ML 1,000 ML IV SCH ×3 (06:00→17:21)
[2018-10-10] MEDS: METRONIDAZOLE 250MG/NS 50ML 50 ML IV SCH ×2 (06:00→20:00)
--- NOTE | 2018-10-10 06:00 | NUR ---
bath/skin care provided and bed changed at this time. patient denies pain at this time.
[2018-10-10] MEDS: INSULIN LISPRO 100 UNIT/1 ML 3ML VIAL SQ SCH ×4 (07:30→21:30)
[2018-10-10] MEDS: PANTOPRAZOLE SOD 40 MG TABEC PO SCH (07:30)
[2018-10-10] MEDS ORDERED: PERMETHRIN 5% CREAM 60 GM TUBE TOP ONE (08:00)
--- NOTE | 2018-10-10 08:30 | NUR ---
PT RECEIVED LYING IN BED, AA/O X3. GRANDDAUGHTER PRESENT. NO C/O AT PRESENT, DENIES PAIN AT THIS TIME. ASSESSMENT COMPLETE, VSS. IN NO APPARENT RESP DISTRESS. ABD SOFT,TENDER TO RUQ. RASHES NOTED TO CHEST, BILATERAL LOWER LEGS, AND BUTTOCKS. PERMETHRIN CREAM APPLIED FROM HEAD/HAIR TO TOES. EDUCATION PROVIDED FOR MEDICATION. DISCUSSED PLAN FOR DAY
[2018-10-10 08:47] LABS: BASOPHILS # (AUTO) 0.1 (0.0-0.1); BASOPHILS % 0.3 % (0.0-1.0); EOSINOPHILS # (AUTO) 0.2 (0.0-0.4); EOSINOPHILS % 1.3 % (0.0-6.0); HEMOGLOBIN 9.5 g/dL (14.0-18.0); LYMPHOCYTES # (AUTO) 1.4 (1.0-3.2); LYMPHOCYTES % 7.9 % (18.0-39.1); MEAN CORPUSCULAR HEMOGLOBIN 27.1 pg (28-32); MEAN CORPUSCULAR HGB CONC 31.7 g/dL (31-35); MEAN CORPUSCULAR VOLUME 85.5 fL (81-99); MONOCYTES # (AUTO) 0.9 (0.2-0.8); MONOCYTES % 5.1 % (4.4-11.3); NEUTROPHILS # (AUTO) 15.4 (2.1-6.9); NEUTROPHILS % 84.5 % (38.7-80.0); PLATELET COUNT 324 x10e3/uL (140-360); RED BLOOD COUNT 3.51 x10e6/uL (4.3-5.7); RED CELL DISTRIBUTION WIDTH 13.6 % (11.7-14.4)
[2018-10-10] MEDS: LEVETIRACETAM 500 MG TAB PO SCH ×2 (09:00→21:09)
[2018-10-10] MEDS: IPRATROPIUM BROMIDE 0.06% 42 MCG NASPR NS SCH ×3 (09:00→22:00)
--- NOTE | 2018-10-10 10:34 | NUR ---
PT RETURNED TO UNIT, RESTING. NO C/O
--- NOTE | 2018-10-10 11:08 | NUR ---
PT TO HAVE HIDA SCAN, EXPLAINED TO PT AND GRANDDAUGHTER
--- NOTE | 2018-10-10 11:29 | NUR ---
LUNG BX SCHEDULED FOR THIS MONDAY/MONDAY WAITING DUE TO PLAVIX AND HIGH RISK OF BLEED EGD DONE TODAY
--- NOTE | 2018-10-10 12:59 | Consultation ---
DATE OF CONSULTATION: October 08, 2018 HEMATOLOGY-ONCOLOGY CONSULTATION HISTORY: Mr. Jurado is a 72-year-old male who has been referred to me for evaluation of a mass in the lung. The patient had presented with weakness, nausea, loss of appetite, shortness of breath. Subsequently the CAT scan findings were suggestive of lung cancer. Subsequently referred to me for further evaluation and treatment. ALLERGIES: REPORTED 1. CLINDAMYCIN. 2. DOXYCYCLINE. 3. ASPIRIN. 4. CODEINE. 5. IODINE. 6. SULFA. 7. PENICILLINS. MEDICATIONS: At this time 1. Azactam. 2. Cefepime. 3. Metronidazole. 4. Sodium chloride. 5. Levetiracetam. 6. Celecoxib. 7. Tramadol. 8. Ondansetron. 9. Folic acid. 10. Protonix. 11. Cyanocobalamin. 12. Morphine. 13. Insulin. 14. Flomax. 15. Simvastatin. 16. Wellbutrin. 17. Tylenol with Codeine. REVIEW OF SYSTEMS: HEENT: Normal. CARDIAC: History of hypertension and hyperlipidemia. RESPIRATORY: Now lung cancer. GI: Nausea and vomiting. : History of BPH. MUSCULOSKELETAL: Normal. SKIN AND BREASTS: Normal. NEUROENDOCRINE: History of diabetes mellitus. PHYSICAL EXAMINATION: GENERAL: A moderately built male. Anemic. No palpable adenopathy. HEART: Within normal limits. LUNGS: Clear. ABDOMEN: Obese. RECTAL: Exam deferred. CENTRAL NERVOUS SYSTEM: Essentially normal. EXTREMITIES: Essentially normal. LABORATORY DATA AND DIAGNOSTICS: Shows a hemoglobin of 9.8, a white count 22,700. Calcium low at 8.1. Albumin low at 2.1. Globulins high at 4.6. CAT scan of the chest shows a left lower lobe mass 8.5 x 7.2 x 8.3. Multiple lesions in the right lung. Pleural effusion. An adrenal mass 3.8 x 2.9 cm. IMPRESSION: 1. Anemia of chronic disease. 2. Leukocytosis. 3. Diabetes mellitus. 4. Hypocalcemia. 5. Hypoalbuminemia. 6. Hyperglobulinemia. 7. Left lower lobe mass 8.5 x 7.2 x 8.3 cm. 8. Multiple lesions in the right lung. 9. Pleural effusion. 10. Adrenal metastases. 11. Insulin-dependent diabetes mellitus. 12. Coronary artery disease. 13. Benign prostatic hypertrophy. 14. Hyperlipidemia. 15. History of major depression. PLAN, COMMENTS AND SUGGESTIONS: Suggest a lung biopsy. Suggest MRI of the brain. Suggest a PET scan for further evaluation and treatment. I had a more than 45-minute conference with the patient's family the following day. I have discussed the stage 4. I have also discussed the prognosis. I also discussed the treatment plan. Job#: [id number] EV cc:MD SHAYLEE SAN MD MAURICE HADDAD, MD MUHAMMAD FAISAL, M.D. DAVID STEIN, MD
--- NOTE | 2018-10-10 14:43 | NUR ---
PT LEFT FLOOR FOR HIDA SCAN
--- NOTE | 2018-10-10 15:11 | Operative Report ---
DATE OF PROCEDURE: October 10, 2018 REFERRING PHYSICIAN: Dr. Lewis Soria. PROCEDURE PERFORMED: Esophagogastroduodenoscopy with biopsies. INDICATIONS FOR PROCEDURE: Upper abdominal pain. Nausea and vomiting. MEDICATION: Patient was done under MAC. Please see anesthesiologist's note. PROCEDURE: With the patient in the left lateral decubitus position, the flexible fiberoptic Olympus gastroscope was introduced into the esophagus under direct visualization without any difficulty. There was some patchy erythema noted in the distal esophagus. The scope was then advanced with ease into the stomach. Mucosa overlying the antrum and the body revealed some patchy intense erythema and low-grade to moderate edema, and biopsies were obtained and sent to stain for H. pylori. Pylorus appeared to be of normal contour and shape, was intubated with ease, and the scope was advanced all the way to the 2nd portion of the duodenum. The scope was then withdrawn slowly. Mucosa overlying the proximal 2nd portion and the duodenal bulb appeared to be within normal limits. The scope was then withdrawn back into the stomach and retroflexed, and mucosa overlying the fundus and the cardia appeared to be within normal limits. The scope was then straightened out. It was subsequently withdrawn. Patient tolerated the procedure well. IMPRESSION: 1. Distal esophagitis, mild. 2. Gastritis, biopsied. Biopsies sent to stain for H. pylori. PLAN: Follow up histology. Continue current therapy. Findings do not necessarily explain patient's abdominal pain. Will get ultrasound of the gallbladder. Job#: [id number] EV cc:LEWIS SORIA MD
--- NOTE | 2018-10-10 16:40 | NUR ---
pt returned to unit, awake, alert
[2018-10-10] MEDS ORDERED: LIDOCAINE HCL 2% LOCAL INJ 5 ML SDV VIAL INJ ONE (16:53)
[2018-10-10] MEDS ORDERED: PROPOFOL IV EMULSION 10 MG/ML 50 ML VIAL ONE (16:53)
[2018-10-10] MEDS: FOLIC ACID 1 MG TAB PO SCH (18:34)
[2018-10-10] MEDS: BUPROPION HCL 150 MG TABCR PO SCH (18:34)
[2018-10-10] MEDS: TAMSULOSIN HCL 0.4 MG CAP PO SCH (18:34)
[2018-10-10] MEDS: CYANOCOBALAMIN 1,000 MCG TAB PO SCH (18:34)
[2018-10-10] MEDS: CELECOXIB 200 MG CAP PO SCH (18:34)
--- NOTE | 2018-10-10 18:35 | NUR ---
MULTIPLE FAMILY MEMBERS IN ROOM, INSTRUCTED ON ISOLATION INFECTION CONTROL. I.E. GOWN, FOOD, DRINKS, ETC. VERBALIZED UNDERSTANDING BUT CONTINUE TO NOT FOLLOW PROTOCOL.
--- NOTE | 2018-10-10 19:23 | Diagnostic Imaging Report ---
Hepatobiliary Scan with Gallbladder Ejection Fraction Clinical information: 72 F with abdominal pain x 6 weeks Report: Following intravenous administration of 6.7 millicuries of Tc-99m mebrofenin, dynamic images of the abdomen in the anterior projection were obtained through 55 minutes. Sincalide (CCK analog) 1.6 micrograms was administered intravenously over 30 minutes with additional imaging for determination of gallbladder ejection fraction. Perfusion to the liver is normal. Extraction of tracer from the blood pool by the liver parenchyma is normal. Tracer is seen promptly within the biliary tract. The gallbladder begins to fill by 16 minutes post-injection of tracer and fills adequately. Tracer is seen in the small bowel during the sincalide infusion. The gallbladder ejection fraction with administration of sincalide is 61% (normal greater than 40%). Impression: 1. Filling of the gallbladder excludes the diagnosis of acute cystic duct obstruction/acute cholecystitis. 2. Normal gallbladder ejection fraction of 61% does not support the clinical diagnosis of chronic cholecystitis/gallbladder dyskinesia. Signed by: Dr. Charity Orellana M.D. on 10/10/2018 7:20 PM
--- NOTE | 2018-10-10 20:07 | Progress Note ---
DATE: October 10, 2018 INTERNAL MEDICINE PROGRESS NOTE SUBJECTIVE: Patient is complaining of pain, lack of appetite. PHYSICAL EXAMINATION: VITAL SIGNS: The blood pressure is 131/65, temperature 97.4, heart rate 82 per minute, respiratory rate 16 per minute, oxygen saturation is 100%. LABS: On the blood work, we have a CBC with a white blood count which is elevated at 18.21, hemoglobin 9.5, hematocrit 30.0, platelet count 324,000. We also had glucose levels of 100. Blood culture was negative for 72 hours. Urine culture has been essentially negative for 36 to 48 hours. He had a workup done, which showed multiple nodules in the lungs and adrenal glands. Patient is going to go for a lung biopsy hopefully on Monday. He is going to be off the Plavix for at least 5 days. FINAL IMPRESSION: 1. Lung nodules, rule out malignancy. 2. Adrenal mass, rule out metastatic lesion. 3. Possible pneumonia. 4. Coronary artery disease, status post multiple stents. 5. Hypertension. 6. Uncontrolled diabetes mellitus type 2 with diabetic neuropathy. 7. Nausea and vomiting, which is resolved. 8. Gastritis. 9. Esophagitis. 10. Chronic obstructive pulmonary disease exacerbation. PLAN OF TREATMENT: Continue aztreonam IV q.8h., cefepime at 2 g IV q.8h., metronidazole 500 mg IV q.8h. Continue normal saline at 100 mL an hour, bupropion 150 mg daily, Celebrex 200 mg daily, vitamin B12 1000 mcg p.o. daily. Continue Benadryl 25 mg p.o. q.4h. as needed, folic acid 1 mg daily. Continue monitoring blood sugar a.c. and at bedtime. Levemir is on hold because of lack of appetite. Continue Keppra 500 mg twice a day, albuterol and Atrovent 2 inhalations q.12h., Remeron 7.5 mg at bedtime, morphine 2 mg IV q.3h. as needed for severe pain, Protonix 40 mg daily. Continue cream 1 time, Zocor 20 mg daily, Flomax 0.4 mg daily, Zofran 4 mg IV q.4h. Tramadol has been discontinued. So the plan is lung biopsy and then rest of the treatment will be depending on that. Job#: [id number]
[2018-10-10] MEDS: MIRTAZAPINE 15 MG TAB PO SCH (21:09)
[2018-10-10] MEDS: SIMVASTATIN 20 MG TAB PO SCH (21:09)
[2018-10-10] MEDS: INSULIN DETEMIR 100 UNIT/ML PEN SQ SCH (21:30)
[2018-10-11] VITALS: BP 112/64
[2018-10-11] MEDS: SODIUM CHLORIDE 0.9% 1000ML 1,000 ML IV SCH ×2 (03:16→15:44)
[2018-10-11] MEDS: METRONIDAZOLE 250MG/NS 50ML 50 ML IV SCH ×3 (03:35→21:04)
[2018-10-11 04:00] VITALS: BP 122/64
[2018-10-11] MEDS: CEFEPIME 2 GM/NS 0.9% 100 ML 100 ML IV SCH ×3 (05:54→23:33)
[2018-10-11] MEDS: AZTREONAM 2GM/NS 100ML 2 GM in AZTREONAM 2GM/NS 100ML 100 ML IV SCH ×3 (05:54→22:23)
--- NOTE | 2018-10-11 06:47 | NUR ---
Patient ate cake, crackers and cheese, and snacks in the evening. BG 263 and administered insulin per MD orders and pt request. This AM, rechecked blood glucose and it was 67. Patient was baseline orientation and following commands. Patient drank apple juice x 2 with sugar, blood glucose rechecked, increased to 103. Patient reports feeling better and denies more juice. Dr. Atkinson notified of drop in glucose and insulin orders, no new orders received.
[2018-10-11] MEDS: PANTOPRAZOLE SOD 40 MG TABEC PO SCH (07:30)
[2018-10-11] MEDS: INSULIN LISPRO 100 UNIT/1 ML 3ML VIAL SQ SCH ×4 (07:30→22:50)
[2018-10-11 08:00] VITALS: BP 112/71
--- NOTE | 2018-10-11 08:28 | NUR ---
WENT IN TO ASSESS THE PATIENT, HE C/O BEEN COLD THROUGH OUT THE NIGHT. THE THERMOSTAT WAS ADJUSTED TO KEEP THE ROOM WARM AND WARM BLANKET WAS GIVEN TO THE PATIENT. HIS SKIN WAS ASSESSED, AND HE DENIES PAIN. HE WAS TOLD TO TAKE HIS MEDICATION THAT'S WHEN HE WENT OFF AND STARTING CURSING AT ME USING OFFENSIVE LANGUAGE. I TOLD HIM THAT I WAS NOT GOING TO PUT OFF WITH HIS BEHAVIOR. I GOT THE CHARGE NURSE INVOLVED AND TOLD HER THAT I WANTED TO TAKE ANOTHER PATIENT BECAUSE THIS PATIENT IS VERY ILL-MANNERED.
[2018-10-11] MEDS: IPRATROPIUM BROMIDE 0.06% 42 MCG NASPR NS SCH (09:00)
[2018-10-11] MEDS: CELECOXIB 200 MG CAP PO SCH (09:00)
[2018-10-11] MEDS ORDERED: SUCRALFATE 1 GM/10 ML SUSP NG PRN (09:15)
[2018-10-11] MEDS ORDERED: CITRATE OF MAGNESIA 300ML BOTTLE PO ONE (09:15)
[2018-10-11] MEDS: TAMSULOSIN HCL 0.4 MG CAP PO SCH (11:28)
[2018-10-11] MEDS: BUPROPION HCL 150 MG TABCR PO SCH (11:29)
[2018-10-11] MEDS: CYANOCOBALAMIN 1,000 MCG TAB PO SCH (11:29)
[2018-10-11] MEDS: LEVETIRACETAM 500 MG TAB PO SCH ×2 (11:29→22:23)
[2018-10-11] MEDS: FOLIC ACID 1 MG TAB PO SCH (11:29)
[2018-10-11] MEDS: MORPHINE SULFATE INJ 4 MG/ML INJ 1ML IV PRN ×3 (11:56→22:20)
[2018-10-11 12:00] VITALS: BP 149/85
--- NOTE | 2018-10-11 14:07 | NUR ---
Nutrition Intervention Assessment RD Recommendation(s) for Physician: - Continue ADA diet as ordered - Continue Glucerna Shake TID - Pt meets criteria for moderate protein calorie malnutrition Plan of Care: RD following, monitoring for tolerance and adequacy, ONS rec Nutrition reason for involvement: Follow up RD Assessment 10/11: Chart reviewed. Biopsy pending. Visited pt in the room. Pt reports improved appetite with ~75% observed lunch intake. No complains of nausea or vomiting at this time. Pt reports constipation x3 days, laxatives has been given. Pt reports of some issue with chewing due to missing teeth but refused mechanical soft diet. No swallowing difficulty noted. Entered food preferences on [facility]. Pt has been drinking Glucerna ordered. Will continue to monitor and follow. 10/08: 72 YOM admitted for abdominal with new dx of R lung nodules and nodules on adrenal glands with pending pathology- IR consulted for biopsy. Pt seen today per RN screen. Pt reports poor appetite and intake for months, can not quantify time frame. Pt reports UBW of 198# 1 year ago, noted 18% wt loss in 1 year. Pt states he has been eating 1 meal per day and does not drink any supplements at home 2/2 no access to them. Pt was unable to identify GI distress symptoms at time of visit, was agitated at that time 2/2 to pain and requesting ice chips- RN notified of pt status. Chart reviewed. Will monitor and continue to follow. Principal Problems/Diagnoses: 1. Abdominal pain 2. PNA 3. Adrenal mass PMH: PNA, COPD, DM, HTN GI: constipation per pt Skin: WDL Labs: No lab since 10/09 10/08: Na 137, K 4.4, BUN 6, Cr 0.75, Gluc 144, Ca 8.2 Meds: insulin, vit B12, folic acid, abx, IVF Ht: 67 in Wt: 162.19 lb BMI: 25.4 kg/m2 IBW: 148 lb Malnutrition Evaluation (10/08/2018) The patient meets criteria for unspecified MODERATE protein-calorie malnutrition. Energy intake: <75% of estimated energy requirements for >1 month Weight loss: <20% in 1 year Fat loss: Eyes slightly hollow look Muscle loss: Clavicle visible Supporting Evidence: Fluid accumulation: none Functional Status: unable to evaluate Nutrition Prescription (Diet Order):ADA diet Estimated Nutritional Needs: Calories: 9387-9177 kcal (20-25 kcal/kg/d) Weight used : IBW Protein: 67-101 g (1-1.5g/kg/d) Weight used: IBW Diet Adequacy: meeting calorie needs, meeting protein needs Diet Education Needs Assessment: Diet education not indicated. Nutrition Care Level: low Nutrition Diagnosis: None at this time. Goal: Patient will meet 75-100% of estimated needs by follow up Progress: Goal met Interventions: Texture and CHO modified diet, Commercial beverage Monitoring/Evaluation: Total energy intake, Total protein intake, Modified diet, Liquid supplement, Weight change Signed by Lisandra Sierra, MS, RD, LD
[2018-10-11 15:31] VITALS: BP 107/53
[2018-10-11] MEDS: DOCUSATE SODIUM 100 MG CAP PO SCH (17:00)
[2018-10-11] MEDS ORDERED: DOCUSATE SODIUM LIQD 100 MG/10 ML UDC NG SCH (17:00)
--- NOTE | 2018-10-11 18:03 | Progress Note ---
DATE: October 11, 2018 INTERNAL MEDICINE PROGRESS NOTE SUBJECTIVE: Patient has no complaint. PHYSICAL EXAM: VITAL SIGNS: Blood pressure 107/53, temperature 98.3, heart rate 61 per minute, respiratory rate 14 per minute, oxygen saturation 99%. HEART: Shows regular rhythm. Normal S1 and S2 sounds. LUNGS: Clear bilaterally. ABDOMEN: Soft. EXTREMITIES: Show no evidence of cyanosis, edema or trauma. On the BMP: Sodium 134, potassium 3.6, chloride 103, CO2 23, BUN 8, creatinine 0.66, glucose 140. On the CBC: White blood count 18,200, hemoglobin 9.5, hematocrit 30.0, platelet count 324,000. PT 16.2, INR 1.19, PTT 45.1. AST 12, ALT 24, total bilirubin 0.4, alkaline phosphatase 104. FINAL IMPRESSION: 1. Pneumonia. 1. Lung nodules. 2. Coronary artery disease status post stent placement. 3. Hypertension. 4. Uncontrolled diabetes mellitus type 2 with diabetic neuropathy. 5. Lesions on the renal glands, rule out metastasis. 6. Moderate protein calorie malnutrition. PLAN OF TREATMENT: Biopsy of the lung tomorrow. Continue aztreonam 1 gram IV q.8 hours. Cefepime 2 grams IV q.8 hours. Metronidazole 500 mg IV q.8 hours. Continue albuterol q.12 hours. Keppra 500 mg twice a day. Vitamin B12, 1000 mcg p.o. daily. Carafate 1 gram before meals. Folic acid 1 mg daily. Protonix 40 mg daily. Levemir 40 units at bedtime. Colace 100 mg twice a day. Continue monitoring blood sugar a.c. and nightly. Flomax 0.4 mg daily. Simvastatin 20 mg daily. Benadryl 25 mg q.4 hours as needed. Morphine 2 mg IV q.3 hours as needed. D50 IV push as needed for hypoglycemia. Bupropion 150 mg daily. Celebrex 200 mg daily. Remeron 7.5 mg at bedtime. Job#: [id number] EV
[2018-10-11] MEDS: INSULIN DETEMIR 100 UNIT/ML PEN SQ SCH (21:00)
--- NOTE | 2018-10-11 21:00 | NUR ---
pt refuses bed alarm, family at bedside and they also ask that bed alarm to remain off "he can walk to the restroom by hisself" , instructed pt to call if assistance needed for safety
--- NOTE | 2018-10-11 21:00 | NUR ---
received pt from [facility] to room 215, AAOx3, able to verbalize needs, resp even and unlabored, c/o of pain to lower part of chest below ribs, pain medication on board, bed in lowest and locked position, call light in reach, pt refuses bed alarm, instructed to call when assistance needed
[2018-10-11 21:40] VITALS: BP 157/80
[2018-10-11] MEDS: MIRTAZAPINE 15 MG TAB PO SCH (22:23)
[2018-10-11] MEDS: SIMVASTATIN 20 MG TAB PO SCH (22:23)
[2018-10-12] VITALS (12 sets, daily range): BP systolic 117–154; BP diastolic 58–88
[2018-10-12] MEDS: METRONIDAZOLE 250MG/NS 50ML 50 ML IV SCH ×3 (02:44→19:50)
[2018-10-12] MEDS: MORPHINE SULFATE INJ 4 MG/ML INJ 1ML IV PRN ×2 (02:54→17:18)
[2018-10-12] MEDS: AZTREONAM 2GM/NS 100ML 2 GM in AZTREONAM 2GM/NS 100ML 100 ML IV SCH ×3 (05:25→21:41)
[2018-10-12 05:53] LABS: BASOPHILS # (AUTO) 0.1 (0.0-0.1); BASOPHILS % 0.3 % (0.0-1.0); EOSINOPHILS # (AUTO) 0.3 (0.0-0.4); EOSINOPHILS % 1.6 % (0.0-6.0); HEMATOCRIT 27.8 % (38.2-49.6); HEMOGLOBIN 8.8 g/dL (14.0-18.0); LYMPHOCYTES # (AUTO) 1.6 (1.0-3.2); LYMPHOCYTES % 8.4 % (18.0-39.1); MEAN CORPUSCULAR HEMOGLOBIN 26.7 pg (28-32); MEAN CORPUSCULAR HGB CONC 31.7 g/dL (31-35); MEAN CORPUSCULAR VOLUME 84.2 fL (81-99); MONOCYTES # (AUTO) 1.1 (0.2-0.8); MONOCYTES % 5.9 % (4.4-11.3); NEUTROPHILS # (AUTO) 15.3 (2.1-6.9); NEUTROPHILS % 82.9 % (38.7-80.0); PLATELET COUNT 328 x10e3/uL (140-360); RED CELL DISTRIBUTION WIDTH 13.6 % (11.7-14.4)
[2018-10-12] MEDS: CEFEPIME 2 GM/NS 0.9% 100 ML 100 ML IV SCH ×3 (06:48→23:56)
[2018-10-12] MEDS: INSULIN LISPRO 100 UNIT/1 ML 3ML VIAL SQ SCH ×4 (07:30→21:40)
--- NOTE | 2018-10-12 08:35 | NUR ---
PATIENT TRANSFERRED TO [facility] ON 10/12. TATI RECEIVED MESSAGE FROM TAPAN HWANG THAT LUNG BIOPSY WAS SCHEDULED BUT WILL NOT BE COVERED BASED ON THE DIAGNOSIS. PATIENT CAME IN FOR LUNG RELATED ISSUES. TATI SPOKE TO PATIENT AT BEDSIDE WITH SON REGARDING LUNG BIOPSY. PATIENT AND PATIENT SON INFORMED THAT LUNG BIOPSY MAY NOT BE COVERED; HOWEVER, IT WOULD BE IN THEIR BEST INTEREST TO NOTIFY THEIR INSURANCE. PATIENT STATES THE INSURANCE IS AWARE THAT HE HAS BEEN HAVING LUNG PROBLEMS. PATIENT STATES HE STILL WANTS LUNG BIOPSY TO BE DONE. PATIENT SON ALSO STATES THAT HE WOULD LIKE TO PURSUE THE LUNG BIOPSY WELL. TATI LM WITH TOURIST HOME KEEPER- JOANN, REGARDING PATIENT DECISION TO PURSUE LUNG BIOPSY DESPITE THE POSSIBILITY OF FINANCIAL RESPONSIBILITY. LISA (P) [phone].
[2018-10-12] MEDS: BUPROPION HCL 150 MG TABCR PO SCH (09:05)
[2018-10-12] MEDS: CYANOCOBALAMIN 1,000 MCG TAB PO SCH (09:05)
[2018-10-12] MEDS: FOLIC ACID 1 MG TAB PO SCH (09:05)
[2018-10-12] MEDS: DOCUSATE SODIUM 100 MG CAP PO SCH ×2 (09:05→16:44)
[2018-10-12] MEDS: PANTOPRAZOLE SOD 40 MG TABEC PO SCH (09:05)
[2018-10-12] MEDS: LEVETIRACETAM 500 MG TAB PO SCH ×2 (09:05→21:41)
[2018-10-12] MEDS: TAMSULOSIN HCL 0.4 MG CAP PO SCH (09:05)
--- NOTE | 2018-10-12 11:20 | Progress Note ---
DATE: October 12, 2018 INTERNAL MEDICINE PROGRESS NOTE SUBJECTIVE: Patient is waiting for the biopsy of the lung. PHYSICAL EXAMINATION VITAL SIGNS: Blood pressure 125/58. Temperature 97 degrees. Heart rate 82 per minute. Respiratory rate 17 per minute. Oxygen saturation 95%. HEART: Regular rhythm. Normal S1, S2 sounds. LUNGS: Clear bilaterally. ABDOMEN: Soft. EXTREMITIES: No evidence of cyanosis, edema or trauma. BLOOD WORK: Sodium 134, potassium 3.6, chloride 103, CO2 23, BUN 8, creatinine 0.68. Glucose 114. On the CBC, white blood count is elevated at 18,400; hemoglobin 8.8; hematocrit 27.8; platelet count 328,000. PT 16.2, INR 1.19, PTT 45.1. AST 20, ALT 24, total bilirubin 0.4, alkaline phos 104. FINAL IMPRESSION 1. Chronic obstructive pulmonary disease exacerbation. 2. Lung nodules. 3. Esophagitis and gastritis. 4. Lobar pneumonia. 5. Coronary artery disease, status post stent placement. 6. Hypertension. PLAN OF TREATMENT: We will continue aztreonam 2 grams IV q.8 h. and cefepime 2 grams IV q.8 h. Continue metronidazole 400 mg IV q.8 h. Continue Zofran 4 mg IV q.4 h. as needed, folic acid 1 mg daily, Protonix 40 mg daily, Levemir 40 units at bedtime, Colace 100 mg twice a day. Continue monitoring blood sugar a.c. and h.s. Continue Flomax 0.4 mg daily; simvastatin 20 mg daily; Benadryl 25 mg q.3-4 h. as needed; morphine 2 mg IV q.3 h. as needed for severe pain; bupropion 150 mg daily; Celebrex 200 mg daily; Remeron 7.5 mg at bedtime; albuterol q.12 h.; Keppra 500 mg twice a day; vitamin B12 1,000 mcg daily; Carafate 1 gram before meals and at bedtime. He is going to go for a lung biopsy today. Job#: [id number]
--- NOTE | 2018-10-12 14:00 | NUR ---
Return pt to floor care with tele box on Report to tele room and nurse TAPAN Garcia Aware of post monitoring and dressing to left back dry and intact. Total sedation via capnography nurse 0.5 Versed Iv and 25mcg Fentanyl Ivp. Back to baseline orientation 95% sats on room air. Iv site remains w/o s/s infiltration. 200cc NS infused and disconnected. Transported by RN via bed. Face to face handoff done. Call light at bedside and bed in low position with family at bedside. May may eat 2nd cxr due in 2hrs stable denies pain , VS stable
[2018-10-12] MEDS ORDERED: SODIUM CHLORIDE 0.9% 500ML 500 ML ONE (14:13)
[2018-10-12] MEDS ORDERED: MIDAZOLAM HCL 2 MG/2 ML VIAL ONE (14:24)
--- NOTE | 2018-10-12 15:33 | NUR ---
Received report from radiology nurse. Patient is s/p lung biopsy and is returning to the floor.
--- NOTE | 2018-10-12 15:40 | NUR ---
Patient arrived back to the floor from s/p lung biospy. He is awake alert and oriented x3. Dressing is dry and intact. Family is present, patient denies needing anything at this time, call light in reach
[2018-10-12] MEDS ORDERED: FENTANYL CITRATE/PF 100MCG/2 ML INJ ONE (16:43)
--- NOTE | 2018-10-12 19:45 | Diagnostic Imaging Report ---
Examination: Single AP view of the chest. COMPARISON: CT chest 10/07/2018 INDICATION: Status post lung biopsy. IMPRESSION: 1. Lines and Tubes: None 2. Lungs are well-inflated. No pneumothorax is identified. Unchanged pulmonary mass projecting in the left mid lung, localized in the posterior left lower lobe as seen on prior CT. 3. Cardiomediastinal silhouette is normal. Pulmonary vasculature is normal. 4. No acute bony abnormalities. Signed by: Dr. German Jarrett M.D. on 10/12/2018 7:42 PM
--- NOTE | 2018-10-12 20:17 | Diagnostic Imaging Report ---
Examination: Single AP view of the chest. COMPARISON: CT chest 10/07/2018 INDICATION: Status post lung biopsy IMPRESSION: 1. Lines and Tubes: None 2. No pneumothorax is visualized. 3. Otherwise, no interval change Signed by: Dr. German Jarrett M.D. on 10/12/2018 8:13 PM
[2018-10-12] MEDS: INSULIN DETEMIR 100 UNIT/ML PEN SQ SCH (21:00)
[2018-10-12] MEDS: MIRTAZAPINE 15 MG TAB PO SCH (21:41)
[2018-10-12] MEDS: SIMVASTATIN 20 MG TAB PO SCH (21:41)
[2018-10-13] VITALS (8 sets, daily range): BP systolic 126–158; BP diastolic 60–76
[2018-10-13] MEDS: METRONIDAZOLE 250MG/NS 50ML 50 ML IV SCH ×3 (02:27→19:35)
[2018-10-13] MEDS: AZTREONAM 2GM/NS 100ML 2 GM in AZTREONAM 2GM/NS 100ML 100 ML IV SCH ×3 (05:34→21:27)
[2018-10-13] MEDS: CEFEPIME 2 GM/NS 0.9% 100 ML 100 ML IV SCH ×3 (06:00→23:00)
[2018-10-13] MEDS: INSULIN LISPRO 100 UNIT/1 ML 3ML VIAL SQ SCH ×4 (08:30→21:00)
[2018-10-13] MEDS: LEVETIRACETAM 500 MG TAB PO SCH ×2 (09:12→21:27)
[2018-10-13] MEDS: FOLIC ACID 1 MG TAB PO SCH (09:12)
[2018-10-13] MEDS: TAMSULOSIN HCL 0.4 MG CAP PO SCH (09:12)
[2018-10-13] MEDS: CYANOCOBALAMIN 1,000 MCG TAB PO SCH (09:12)
[2018-10-13] MEDS: DOCUSATE SODIUM 100 MG CAP PO SCH ×2 (09:12→18:50)
[2018-10-13] MEDS: BUPROPION HCL 150 MG TABCR PO SCH (09:13)
[2018-10-13] MEDS: PANTOPRAZOLE SOD 40 MG TABEC PO SCH (09:13)
[2018-10-13] MEDS: MORPHINE SULFATE INJ 4 MG/ML INJ 1ML IV PRN ×2 (11:41→15:30)
[2018-10-13] MEDS: ONDANSETRON HCL INJ 2MG/ML 2ML 2 MG/ML VIAL IV PRN (15:30)
--- NOTE | 2018-10-13 16:49 | Progress Note ---
DATE: October 13, 2018 INTERNAL MEDICINE PROGRESS NOTE SUBJECTIVE: The patient is doing well except for some abdominal pain. PHYSICAL EXAM VITAL SIGNS: Blood pressure 158/75, temperature 97.9, heart rate 75 per minute, respiratory rate 18 per minute, and oxygen saturation 96%. HEART: Regular rhythm. Normal S1, S2 sounds. LUNGS: Clear bilaterally. ABDOMEN: Soft. EXTREMITIES: Show no evidence of cyanosis, edema or trauma. LABORATORY DATA: On the BMP; sodium 134, potassium 3.6, chloride 103, CO2 of 23, BUN 8, creatinine 0.68, glucose 104. On the CBC; white blood count 18,400, hemoglobin 8.8, hematocrit 27.8, platelet count 328,000. PT 16.2, PTT is 45.1, INR 1.19. AST 12, ALT 24, total bilirubin 0.4, alkaline phosphatase 104. FINAL IMPRESSION 1. Lung and adrenal mass status post lung biopsy. We are waiting for the biopsy report. 2. Possible pneumonia. 3. Coronary artery disease, status post PCI. 4. Hypertension. 5. Uncontrolled diabetes mellitus, type 2 with neuropathy. 6. Anemia of chronic disease. 7. Benign prostatic hypertrophy. 8. Leukocytosis. PLAN OF TREATMENT: I am going to wait for the biopsy report. Continue aztreonam q.8 hours, cefepime 2 g IV q.8 hours, metronidazole 500 mg IV q.8 hours. Continue Zofran 4 mg IV q.4 hours as needed, folic acid 1 mg daily. Protonix 40 mg daily. Levemir 40 units at bedtime. Colace 100 mg twice a day. Continue monitoring blood sugar a.c. and nightly. Flomax 0.4 mg daily. Simvastatin 20 mg daily. Benadryl 25 mg q.4 hours as needed. Morphine 2 mg IV q.3 hours as needed for severe pain, bupropion 150 mg daily, Celebrex 200 mg daily, Remeron 7.5 mg at bedtime, albuterol q.12 hours, Keppra 500 mg twice a day, vitamin B12 1000 mcg daily, Carafate 1 g before meals and at bedtime. As I said, we are waiting for the biopsy report we are going to see if the patient can qualify to go to [facility]. Job#: [id number] IAIN
--- NOTE | 2018-10-13 19:35 | NUR ---
PATIENT RECEIVED. PATIENT RESTING IN BED, AAOX3. RESP EVEN AND UNLABORED. NO ACUTE DISTRESS NOTED. AB DISTENDED NOTED. TELE IN PLACE. FAMILY AT BED SIDE. CALL LIGHT WITHIN REACH. INSTRUCT TO CALL FOR ASSISTANCE. BED LOW/LOCKED. CONTINUE TO MONITOR CLOSELY
[2018-10-13] MEDS: INSULIN DETEMIR 100 UNIT/ML PEN SQ SCH (21:00)
[2018-10-13] MEDS: MIRTAZAPINE 15 MG TAB PO SCH (21:27)
[2018-10-13] MEDS: SIMVASTATIN 20 MG TAB PO SCH (21:27)
--- NOTE | 2018-10-13 21:40 | NUR ---
RIGHT WRIST IV INFILTRATED. DC IV. START NEW IV TO RIGHT FOREARM 20G. PATIENT TOLERATED WELL
[2018-10-14] VITALS: BP 121/61
[2018-10-14] MEDS: METRONIDAZOLE 250MG/NS 50ML 50 ML IV SCH ×3 (03:30→20:00)
[2018-10-14 04:00] VITALS: BP 142/67
[2018-10-14] MEDS: CEFEPIME 2 GM/NS 0.9% 100 ML 100 ML IV SCH ×3 (05:23→22:55)
[2018-10-14 05:28] LABS: BASOPHILS # (AUTO) 0.1 (0.0-0.1); BASOPHILS % 0.3 % (0.0-1.0); EOSINOPHILS # (AUTO) 0.2 (0.0-0.4); EOSINOPHILS % 1.1 % (0.0-6.0); HEMATOCRIT 28.8 % (38.2-49.6); HEMOGLOBIN 9.3 g/dL (14.0-18.0); LYMPHOCYTES # (AUTO) 1.7 (1.0-3.2); LYMPHOCYTES % 7.7 % (18.0-39.1); MEAN CORPUSCULAR HEMOGLOBIN 26.6 pg (28-32); MEAN CORPUSCULAR HGB CONC 32.3 g/dL (31-35); MEAN CORPUSCULAR VOLUME 82.5 fL (81-99); MONOCYTES # (AUTO) 1.2 (0.2-0.8); MONOCYTES % 5.3 % (4.4-11.3); NEUTROPHILS # (AUTO) 18.6 (2.1-6.9); NEUTROPHILS % 84.3 % (38.7-80.0); PLATELET COUNT 310 x10e3/uL (140-360); RED BLOOD COUNT 3.49 x10e6/uL (4.3-5.7); RED CELL DISTRIBUTION WIDTH 13.9 % (11.7-14.4)
[2018-10-14] MEDS: AZTREONAM 2GM/NS 100ML 2 GM in AZTREONAM 2GM/NS 100ML 100 ML IV SCH ×3 (06:41→22:30)
[2018-10-14 07:30] VITALS: BP 134/61
[2018-10-14] MEDS: PANTOPRAZOLE SOD 40 MG TABEC PO SCH (07:30)
[2018-10-14] MEDS: INSULIN LISPRO 100 UNIT/1 ML 3ML VIAL SQ SCH ×4 (07:30→21:16)
[2018-10-14] MEDS: ONDANSETRON HCL INJ 2MG/ML 2ML 2 MG/ML VIAL IV PRN ×2 (08:38→18:35)
[2018-10-14] MEDS: MORPHINE SULFATE INJ 4 MG/ML INJ 1ML IV PRN ×2 (08:38→18:35)
[2018-10-14] MEDS: FOLIC ACID 1 MG TAB PO SCH (09:00)
[2018-10-14] MEDS: CYANOCOBALAMIN 1,000 MCG TAB PO SCH (09:00)
[2018-10-14] MEDS: DOCUSATE SODIUM 100 MG CAP PO SCH ×2 (09:00→16:54)
[2018-10-14] MEDS: LEVETIRACETAM 500 MG TAB PO SCH ×2 (09:00→21:15)
[2018-10-14] MEDS: TAMSULOSIN HCL 0.4 MG CAP PO SCH (09:00)
[2018-10-14] MEDS: BUPROPION HCL 150 MG TABCR PO SCH (09:00)
--- NOTE | 2018-10-14 11:05 | NUR ---
SW met with patient to discuss discharge planning. However, patient requested SW speak with Mary his granddaughter to discuss his care. AC contacted Mary Manzano [phone] to discuss MD recommendations for LTAC. AC briefly explained the MD recommendation to Ignacia and educated family member on patients choices for LTAC facility. GD states she will be visiting the hospital this morning. AC will meet with family or leave choices by bedside.
--- NOTE | 2018-10-14 11:55 | NUR ---
AC met patient's family members regarding discharge. AC discussed MD recommendations to LTAC for aftercare. However, family would prefer he stay with his family and receive treatment with [facility]. SW informed RN regarding patient and family request. Family has also requested to speak with family, MD will be notified to speak with family.
[2018-10-14 11:56] VITALS: BP 146/77
--- NOTE | 2018-10-14 15:17 | Progress Note ---
DATE: October 14, 2018 INTERNAL MEDICINE PROGRESS NOTE SUBJECTIVE: Patient is doing well except for abdominal pain. PHYSICAL EXAM VITAL SIGNS: Blood pressure 146/77, temperature 96.7, heart rate 94 per minute, respiratory rate 16 per minute, ox saturation 96%. HEART: Regular rhythm. Normal S1, S2 sounds. LUNGS: Clear bilaterally. ABDOMEN: Soft. EXTREMITIES: Show no evidence of cyanosis, edema, or trauma. LABS: On the BMP, sodium 134, potassium 3.6, chloride 103, CO2 of 23, BUN 8, creatinine 0.68, glucose 114. On the CBC, white blood count 22,000, hemoglobin 9.3, hematocrit 28.8, platelet count 310,000. PT 16.24, INR 1.19, and PTT 44.1. AST 12, ALT 24, total bilirubin 0.4, alkaline phosphatase 104. FINAL IMPRESSION 1. Pneumonia. 2. Lung masses, rule out cancer. 3. Coronary artery disease, status post stent. 4. Chronic obstructive pulmonary disease. 5. Hypertension. 6. Uncontrolled diabetes mellitus type 2 with diabetic neuropathy. 7. Chronic gastritis. PLAN OF TREATMENT: Continue aztreonam IV q.8 hours. Continue cefepime 1 gram IV q.8 hours, metronidazole 500 mg IV q.8 hours, Zofran 4 mg IV q.4 hours as needed, folic acid 1 mg daily, Protonix 40 mg daily, Levemir 40 units at bedtime, Colace 100 mg twice a day. Monitor blood sugar a.c. and nightly. Flomax 0.4 mg daily, simvastatin 20 mg daily, Benadryl 25 mg q.4 hours as needed, morphine 2 mg IV q.3 hours as needed for pain, bupropion 150 mg daily, Celebrex 200 mg daily, Remeron 7.5 mg at bedtime, albuterol and Atrovent q.12 hours, Keppra 500 mg twice a day, vitamin B12 1000 mcg daily, and Carafate 1 gram before meals and at bedtime. We are still waiting for the lung biopsy report. Patient is going to be transferred to [facility] for continuation of antibiotics and physical therapy. Job#: [id number]
[2018-10-14 16:02] VITALS: BP 136/63
--- NOTE | 2018-10-14 19:19 | NUR ---
report given to on coming nurse
[2018-10-14 20:09] VITALS: BP 133/71
[2018-10-14] MEDS: SIMVASTATIN 20 MG TAB PO SCH (21:15)
[2018-10-14] MEDS: MIRTAZAPINE 15 MG TAB PO SCH (21:15)
[2018-10-14] MEDS: INSULIN DETEMIR 100 UNIT/ML PEN SQ SCH (21:16)
[2018-10-15] VITALS (8 sets, daily range): BP systolic 114–142; BP diastolic 56–74
[2018-10-15] MEDS: ONDANSETRON HCL INJ 2MG/ML 2ML 2 MG/ML VIAL IV PRN ×2 (02:40→22:49)
[2018-10-15] MEDS: MORPHINE SULFATE INJ 4 MG/ML INJ 1ML IV PRN ×4 (02:40→22:49)
[2018-10-15] MEDS: METRONIDAZOLE 250MG/NS 50ML 50 ML IV SCH ×3 (03:30→20:00)
[2018-10-15 05:25] LABS: BASOPHILS # (AUTO) 0.1 (0.0-0.1); BASOPHILS % 0.2 % (0.0-1.0); EOSINOPHILS # (AUTO) 0.2 (0.0-0.4); EOSINOPHILS % 1.1 % (0.0-6.0); HEMATOCRIT 28.3 % (38.2-49.6); HEMOGLOBIN 9.3 g/dL (14.0-18.0); LYMPHOCYTES # (AUTO) 1.9 (1.0-3.2); LYMPHOCYTES % 8.8 % (18.0-39.1); MEAN CORPUSCULAR HEMOGLOBIN 27.4 pg (28-32); MEAN CORPUSCULAR HGB CONC 32.9 g/dL (31-35); MEAN CORPUSCULAR VOLUME 83.2 fL (81-99); MONOCYTES # (AUTO) 1.2 (0.2-0.8); MONOCYTES % 5.4 % (4.4-11.3); NEUTROPHILS % 83.5 % (38.7-80.0); PLATELET COUNT 310 x10e3/uL (140-360); RED CELL DISTRIBUTION WIDTH 14.2 % (11.7-14.4)
[2018-10-15] MEDS: INSULIN LISPRO 100 UNIT/1 ML 3ML VIAL SQ SCH ×4 (07:30→22:00)
[2018-10-15] MEDS: IPRATROPIUM BROMIDE 0.06% 42 MCG NASPR NS SCH (09:00)
[2018-10-15] MEDS: DOCUSATE SODIUM 100 MG CAP PO SCH ×2 (09:30→16:38)
[2018-10-15] MEDS: LEVETIRACETAM 500 MG TAB PO SCH ×2 (09:30→22:00)
[2018-10-15] MEDS: CYANOCOBALAMIN 1,000 MCG TAB PO SCH (09:30)
[2018-10-15] MEDS: PANTOPRAZOLE SOD 40 MG TABEC PO SCH (09:30)
[2018-10-15] MEDS: TAMSULOSIN HCL 0.4 MG CAP PO SCH (09:30)
[2018-10-15] MEDS: BUPROPION HCL 150 MG TABCR PO SCH (09:30)
[2018-10-15] MEDS: FOLIC ACID 1 MG TAB PO SCH (09:30)
--- NOTE | 2018-10-15 10:37 | NUR ---
patient received 1 spray in each nostril for total of 2sprays per MAR.
--- NOTE | 2018-10-15 12:06 | NUR ---
CM SPOKE TO PATIENT AT BEDSIDE REGARDING ASSISTED ACUTE CARE PLACEMENT. PATIENT INFORMED OF [facility] AND PHYSICIAN PLAN OF CARE. PATIENT VERBALLY AGREES TO GOING TO ASSISTED ACUTE CARE HOSPITAL. PATIENT GIVEN CHOICES OF ASSISTED ACUTE CARE HOSPITALS. PATIENT CHOSE [facility]. CHOICE LETTER SIGNED AND PLACED IN CHART. CLINICAL PICKED UP LIAISON ANA RODRIUGEZ. PENDING INSURANCE AUTHORIZATION TO TRANSFER TO LTACH: [facility] Address: [address], [place] [address] MOT INITIATED AND PLACED ON CHART. FAMILY GIVEN CM CONTACT INFORMATION FOR ANY FURTHER QUESTIONS OR CONCERNS.
--- NOTE | 2018-10-15 14:52 | Diagnostic Imaging Report ---
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 Payton Pre-operative diagnosis: Left lung mass Post-operative diagnosis: Left lung mass Conscious Sedation: Versed 0.5 mg and Fentanyl 25 mcg. The patient's heart rate and pulse oximetry were continuously monitored by the interventional radiology nurse. Blood pressure was monitored at 5 minute intervals. Total monitored sedation time: 30 minutes Additional Medications: Lidocaine 1% for local anesthesia Fluoroscopy time: None Contrast used: None Estimated blood loss: Less than 5 cc Blood products administered: None Specimens: Fine-needle aspiration x2, core biopsy specimens x10 Implants: None Condition at completion: Stable Disposition: Returned to floor DISCUSSION: Informed consent was obtained and documented in the medical record after discussion of risks and benefits. Patient was placed in the prone position on the CT couch and a marker grid was placed along the posterior aspect of the left mid back. Limited CT scan of the thorax confirmed presence of a large mass in the left lung abutting the posterior pleural surface. A suitable percutaneous approach was identified and the overlying skin was prepped and draped in the standard sterile fashion. 1% lidocaine was infiltrated into the skin and subcutaneous tissues for local anesthesia. Then under intermittent CT guidance, a 16-gauge needle guide was advanced to the periphery of the mass. Subsequently, 2 fine-needle aspiration specimens were obtained coaxially using 22-gauge needles. Specimens were submitted to on-site cytopathology personnel with preliminary report of extensive necrosis. Subsequently, a total of 10 core biopsy specimens were obtained coaxially using an 18-gauge, 2 cm throw core biopsy apparatus. Adjustments in needle guide positioning were made throughout sampling to attempt to obtain specimens from different areas of the lesion. Core specimens were submitted in formalin. At the conclusion of sampling the needle guide was removed and a sterile, occlusive dressing was applied. Postprocedure CT showed no evidence of pneumothorax. The patient tolerated the procedure well without immediate complication. FINDINGS: Large left lung mass IMPRESSION: Successful CT-guided fine-needle aspiration and core biopsies of a large left lung mass as detailed above. Signed by: Dr. Min Payton M.D. on 10/15/2018 2:49 PM
--- NOTE | 2018-10-15 15:04 | NUR ---
Nutrition Intervention Assessment RD Recommendation(s) for Physician: - Continue ADA diet as ordered - Rec to continue Glucerna Shake TID as previously ordered - Pt meets criteria for moderate protein calorie malnutrition Plan of Care: RD following, monitoring for tolerance and adequacy, ONS rec Nutrition reason for involvement: RN consult Supplement order RD Assessment 10/15: Chart reviewed. Pt was discussed during rounds. Lung biopsy result pending. Per RN, pt is going to be transferred to [facility] for continuation of antibiotics and physical therapy. Visited pt in the room. Pt reports of poor appetite. However, RN recorded ~75-100% meal intake over the weekend. Pt complains of some nausea and meds were given. No vomiting episode noted. No supplement order in chart. Multiple bottles of Ensure are sitting on bedside; pt usually drinks 2-3 bottles a day. Will continue to monitor and follow. 10/11: Chart reviewed. Biopsy pending. Visited pt in the room. Pt reports improved appetite with ~75% observed lunch intake. No complains of nausea or vomiting at this time. Pt reports constipation x3 days, laxatives has been given. Pt reports of some issue with chewing due to missing teeth but refused mechanical soft diet. No swallowing difficulty noted. Entered food preferences on [facility]. Pt has been drinking Glucerna ordered. Will continue to monitor and follow. 10/08: 72 YOM admitted for abdominal with new dx of R lung nodules and nodules on adrenal glands with pending pathology- IR consulted for biopsy. Pt seen today per RN screen. Pt reports poor appetite and intake for months, can not quantify time frame. Pt reports UBW of 198# 1 year ago, noted 18% wt loss in 1 year. Pt states he has been eating 1 meal per day and does not drink any supplements at home 2/2 no access to them. Pt was unable to identify GI distress symptoms at time of visit, was agitated at that time 2/2 to pain and requesting ice chips- RN notified of pt status. Chart reviewed. Will monitor and continue to follow. Principal Problems/Diagnoses: 1. Abdominal pain 2. PNA 3. Adrenal mass PMH: PNA, COPD, DM, HTN GI: LBM 10/14 per chart Skin: WDL Labs: No lab since 10/09 10/08: Na 137, K 4.4, BUN 6, Cr 0.75, Gluc 144, Ca 8.2 Meds: insulin, colace, vit B12, protonix, folic acid, zofran Ht: 67 in Wt: 162.19 lb BMI: 25.4 kg/m2 IBW: 148 lb Malnutrition Evaluation (10/08/2018) The patient meets criteria for unspecified MODERATE protein-calorie malnutrition. Energy intake: <75% of estimated energy requirements for >1 month Weight loss: <20% in 1 year Fat loss: Eyes slightly hollow look Muscle loss: Clavicle visible Supporting Evidence: Fluid accumulation: none Functional Status: unable to evaluate Nutrition Prescription (Diet Order): ADA diet Estimated Nutritional Needs: Calories: 2152-4983 kcal (20-25 kcal/kg/d) Weight used : IBW Protein: 67-101 g (1-1.5g/kg/d) Weight used: IBW Diet Adequacy: meeting calorie needs, meeting protein needs Diet Education Needs Assessment: Diet education not indicated. Nutrition Care Level: low Nutrition Diagnosis: None at this time. Goal: Patient will meet 75-100% of estimated needs by follow up Progress: Goal met Interventions: Texture and CHO modified diet, Commercial beverage Monitoring/Evaluation: Total energy intake, Total protein intake, Modified diet, Liquid supplement, Weight change Signed by Lisandra Sierra, MS, RD, LD
--- NOTE | 2018-10-15 19:19 | NUR ---
bedside rounds done with oncoming RN, call light within patient reach. family at bedside.
--- NOTE | 2018-10-15 19:30 | NUR ---
PATIENT RECEIVED. PATIENT RESTING IN BED, AAOX3. RESP EVEN AND UNLABORED. NO ACUTE DISTRESS NOTED. TELE IN PLACE. FAMILY AT BED SIDE. CALL LIGHT WITHIN REACH. INSTRUCT TO CALL FOR ASSISTANCE. BED LOW/LOCKED. CONTINUE TO MONITOR CLOSELY
--- NOTE | 2018-10-15 20:21 | Progress Note ---
DATE: October 15, 2018 INTERNAL MEDICINE PROGRESS NOTE SUBJECTIVE: Patient is doing well. No significant complaint. PHYSICAL EXAMINATION: VITAL SIGNS: Blood pressure 121/56, temperature 98.6, heart rate 94 per minute, respiratory rate is 20 per minute, oxygen saturation 93%. HEART: Shows regular rhythm. Normal S1 and S2 sounds. LUNGS: Clear bilaterally. ABDOMEN: Soft. EXTREMITIES: Shows no evidence of cyanosis, edema, or trauma. On the BMP, sodium 134, potassium 3.6, chloride 103, CO2 23, BUN 8, creatinine 0.66, glucose 114. On the CBC, white blood count 21,500; hemoglobin 9.3; hematocrit 28.3; platelet count 310,000. PT 16.2, INR 1.19, and PTT 45.1. AST 12, ALT 24, total bilirubin 0.4, alkaline phosphatase 104. FINAL IMPRESSION: 1. Lobar pneumonia. 2. Lung nodules, status post biopsy. 3. Adrenal nodule. 4. Uncontrolled diabetes mellitus type 2 with diabetic neuropathy. 5. Coronary artery disease, status post stent placement. 6. Anemia of chronic disease. PLAN OF TREATMENT: Continue metronidazole 500 mg IV q.8h. Continue Zofran 4 mg IV q.4h. as needed. Monitor blood sugar a.c. and at bedtime. D50 IV push as needed for hypoglycemia. Bupropion 150 mg daily, Celebrex 200 mg daily, Remeron 7.5 mg at bedtime, Atrovent q.12h., Keppra 500 mg twice a day, vitamin B12 1000 mcg daily, Carafate 1 g before meals and at bedtime, folic acid 1 mg daily, Protonix 40 mg daily, Levemir 40 units at bedtime, Colace 100 mg twice a day, Flomax 0.4 mg daily, simvastatin 20 mg daily, and Benadryl 25 mg q.4h. The patient is going to be transferred to [facility] if approved by insurance. Job#: [id number]
[2018-10-15] MEDS: MIRTAZAPINE 15 MG TAB PO SCH (22:00)
[2018-10-15] MEDS: SIMVASTATIN 20 MG TAB PO SCH (22:00)
[2018-10-15] MEDS: INSULIN DETEMIR 100 UNIT/ML PEN SQ SCH (22:00)
[2018-10-16] VITALS (8 sets, daily range): BP systolic 117–138; BP diastolic 59–75
[2018-10-16] MEDS: METRONIDAZOLE 250MG/NS 50ML 50 ML IV SCH ×3 (03:45→20:45)
[2018-10-16 05:04] LABS: BASOPHILS # (AUTO) 0.1 (0.0-0.1); BASOPHILS % 0.3 % (0.0-1.0); EOSINOPHILS # (AUTO) 0.2 (0.0-0.4); EOSINOPHILS % 1.1 % (0.0-6.0); HEMATOCRIT 30.1 % (38.2-49.6); HEMOGLOBIN 9.4 g/dL (14.0-18.0); LYMPHOCYTES % 9.1 % (18.0-39.1); MEAN CORPUSCULAR HEMOGLOBIN 26.3 pg (28-32); MEAN CORPUSCULAR HGB CONC 31.2 g/dL (31-35); MEAN CORPUSCULAR VOLUME 84.3 fL (81-99); MONOCYTES # (AUTO) 1.1 (0.2-0.8); MONOCYTES % 5.2 % (4.4-11.3); NEUTROPHILS # (AUTO) 17.9 (2.1-6.9); NEUTROPHILS % 83.4 % (38.7-80.0); PLATELET COUNT 324 x10e3/uL (140-360); RED BLOOD COUNT 3.57 x10e6/uL (4.3-5.7); RED CELL DISTRIBUTION WIDTH 13.9 % (11.7-14.4)
[2018-10-16] MEDS: MORPHINE SULFATE INJ 4 MG/ML INJ 1ML IV PRN ×4 (05:20→21:16)
[2018-10-16] MEDS: ONDANSETRON HCL INJ 2MG/ML 2ML 2 MG/ML VIAL IV PRN ×3 (05:20→16:35)
--- NOTE | 2018-10-16 07:15 | NUR ---
RCD PT AT BED PT IS ALERT AND ORIENTED PT RESTING ON BED IV PATENT FAMILY AT BED SIDE BED LOW AND LOCKED CALL LIGHT IN REACH
[2018-10-16] MEDS: INSULIN LISPRO 100 UNIT/1 ML 3ML VIAL SQ SCH ×4 (07:30→21:00)
[2018-10-16] MEDS: PANTOPRAZOLE SOD 40 MG TABEC PO SCH (07:30)
[2018-10-16] MEDS: LEVETIRACETAM 500 MG TAB PO SCH ×2 (09:00→20:47)
[2018-10-16] MEDS: TAMSULOSIN HCL 0.4 MG CAP PO SCH (09:00)
[2018-10-16] MEDS: IPRATROPIUM BROMIDE 0.06% 42 MCG NASPR NS SCH (09:00)
[2018-10-16] MEDS: DOCUSATE SODIUM 100 MG CAP PO SCH ×2 (09:00→16:40)
[2018-10-16] MEDS: FOLIC ACID 1 MG TAB PO SCH (09:00)
[2018-10-16] MEDS: BUPROPION HCL 150 MG TABCR PO SCH (09:00)
[2018-10-16] MEDS: POLYETHYLENE GLYCOL 3350 17 GM PACK PO SCH ×2 (09:00→16:40)
[2018-10-16] MEDS: CYANOCOBALAMIN 1,000 MCG TAB PO SCH (09:00)
[2018-10-16] MEDS ORDERED: ALBUTEROL SULF 0.083% NEB SOLN 3 ML NEB NEB PRN (19:00)
--- NOTE | 2018-10-16 19:00 | NUR ---
PT RESTING ON BED BED SIDE REPORT GIVEN TO ONCOMING NURSE
--- NOTE | 2018-10-16 19:32 | NUR ---
Patient received sitting in bed. Family at bedside. AAO x 3. Patient had complaints of abdominal pain (05/04). Medication would be administered per eMar. Respirations even and non-labored. Patient instructed to call for assistance when needed. Call light within reach.
--- NOTE | 2018-10-16 20:45 | Progress Note ---
DATE: October 16, 2018 INTERNAL MEDICINE PROGRESS NOTE SUBJECTIVE: Patient is doing well. No significant complaints. PHYSICAL EXAMINATION: HEART: Shows regular rhythm. Normal S1 and S2 sounds. LUNGS: Clear bilaterally. ABDOMEN: Soft. EXTREMITIES: Showed no evidence of cyanosis, edema, or trauma. VITAL SIGNS: Blood pressure 129/75, temperature 97.6, heart rate 99 per minute, respiratory rate is 20 per minute, oxygen saturation 95%. On the BMP, sodium 134, potassium 3.6, chloride 103, CO2 23, BUN 8, creatinine 0.68, glucose of 114. On the CBC, white blood count 21,500; hemoglobin 9.4; hematocrit 30.1; platelet count . PT 16.2, INR 1.19, PTT 45.1. AST 12, ALT 24, total bilirubin 0.4, alkaline phosphatase 104. FINAL IMPRESSION: 1. Pneumonia. 2. Lung nodules. 3. Adrenal nodules. 4. Uncontrolled diabetes mellitus type 2 with diabetic neuropathy. 5. Seizure disorder. 6. Benign prostatic hypertrophy. 7. History of coronary artery disease, status post stent placement. PLAN OF TREATMENT: Continue metronidazole 500 mg IV q.8h. Continue monitoring blood sugar a.c. and at bedtime. Bupropion 150 mg daily, Celebrex 200 mg daily, Remeron 7.5 mg at bedtime for poor appetite. Continue with Atrovent q.12h., Keppra 500 mg twice a day, vitamin B12 1000 mcg daily, Carafate 1 gram before meals and at bedtime, folic acid 1 mg daily, Protonix 40 mg daily, Levemir 40 units at bedtime, Colace 100 mg twice a day, Flomax 0.4 mg daily, simvastatin 20 mg daily, morphine 2 mg IV q.4h. as needed. We are going to resume the IV antibiotic including the aztreonam. He has constant leukocytosis. Infectious disease has been consulted on the case. Job#: [id number]
[2018-10-16] MEDS: SIMVASTATIN 20 MG TAB PO SCH (20:47)
[2018-10-16] MEDS: MIRTAZAPINE 15 MG TAB PO SCH (20:47)
[2018-10-16] MEDS ORDERED: INSULIN DETEMIR 100 UNIT/ML PEN SQ SCH (21:00)
[2018-10-16] MEDS: AZTREONAM 2GM/NS 100ML 100 ML IV SCH (22:18)
[2018-10-17] VITALS (7 sets, daily range): BP systolic 114–134; BP diastolic 61–76
[2018-10-17] MEDS: ONDANSETRON HCL INJ 2MG/ML 2ML 2 MG/ML VIAL IV PRN ×3 (02:53→13:11)
[2018-10-17] MEDS: METRONIDAZOLE 250MG/NS 50ML 50 ML IV SCH ×2 (03:49→11:00)
[2018-10-17] MEDS: AZTREONAM 2GM/NS 100ML 100 ML IV SCH ×2 (05:11→14:00)
[2018-10-17 05:17] LABS: BASOPHILS # (AUTO) 0.1 (0.0-0.1); BASOPHILS % 0.3 % (0.0-1.0); EOSINOPHILS # (AUTO) 0.3 (0.0-0.4); EOSINOPHILS % 1.1 % (0.0-6.0); HEMATOCRIT 29.5 % (38.2-49.6); HEMOGLOBIN 9.3 g/dL (14.0-18.0); LYMPHOCYTES # (AUTO) 2.3 (1.0-3.2); LYMPHOCYTES % 9.8 % (18.0-39.1); MEAN CORPUSCULAR HEMOGLOBIN 26.3 pg (28-32); MEAN CORPUSCULAR HGB CONC 31.5 g/dL (31-35); MEAN CORPUSCULAR VOLUME 83.6 fL (81-99); MONOCYTES # (AUTO) 1.2 (0.2-0.8); MONOCYTES % 5.2 % (4.4-11.3); NEUTROPHILS # (AUTO) 19.1 (2.1-6.9); NEUTROPHILS % 82.6 % (38.7-80.0); PLATELET COUNT 323 x10e3/uL (140-360); RED BLOOD COUNT 3.53 x10e6/uL (4.3-5.7)
[2018-10-17] MEDS: PANTOPRAZOLE SOD 40 MG TABEC PO SCH (07:30)
[2018-10-17] MEDS: INSULIN LISPRO 100 UNIT/1 ML 3ML VIAL SQ SCH ×4 (07:30→21:00)
[2018-10-17] MEDS: MORPHINE SULFATE INJ 4 MG/ML INJ 1ML IV PRN ×3 (08:57→20:07)
[2018-10-17] MEDS: BUPROPION HCL 150 MG TABCR PO SCH (09:00)
[2018-10-17] MEDS: LEVETIRACETAM 500 MG TAB PO SCH ×2 (09:00→22:09)
[2018-10-17] MEDS: FOLIC ACID 1 MG TAB PO SCH (09:00)
[2018-10-17] MEDS: POLYETHYLENE GLYCOL 3350 17 GM PACK PO SCH ×2 (09:00→16:48)
[2018-10-17] MEDS: CYANOCOBALAMIN 1,000 MCG TAB PO SCH (09:00)
[2018-10-17] MEDS: TAMSULOSIN HCL 0.4 MG CAP PO SCH (09:00)
[2018-10-17] MEDS: CELECOXIB 200 MG CAP PO SCH (09:00)
[2018-10-17] MEDS: IPRATROPIUM BROMIDE 0.06% 42 MCG NASPR NS SCH ×2 (09:00→21:00)
[2018-10-17] MEDS: DOCUSATE SODIUM 100 MG CAP PO SCH ×2 (09:00→16:48)
[2018-10-17 12:21] LABS: HEMATOCRIT 31.5 % (38.2-49.6); HEMOGLOBIN 9.9 g/dL (14.0-18.0); MEAN CORPUSCULAR HEMOGLOBIN 26.5 pg (28-32); MEAN CORPUSCULAR HGB CONC 31.4 g/dL (31-35); MEAN CORPUSCULAR VOLUME 84.5 fL (81-99); PLATELET COUNT 343 x10e3/uL (140-360); RED BLOOD COUNT 3.73 x10e6/uL (4.3-5.7); RED CELL DISTRIBUTION WIDTH 14.1 % (11.7-14.4)
[2018-10-17 13:41] LABS: EOSINOPHILS % (MANUAL) 3 % (0-7); LYMPHOCYTES % (MANUAL) 7 % (19-48); MONOCYTES % (MANUAL) 4 % (3.4-9.0); NEUTROPHILS % (MANUAL) 86 % (40-74)
[2018-10-17 13:42] LABS: ANISOCYTOSIS SLIGHT; HYPOCHROMASIA SLIGHT; PLATELET ESTIMATE ADEQUATE; PLATELET MORPHOLOGY COMMENT FEW LARGE; RBC MORPHOLOGY COMMENT ABNORMAL
--- NOTE | 2018-10-17 18:00 | NUR ---
PT RECOMMENDED WALKER TO THE PT HANDED OVER TO THE NIGHT NURSE TO NOTIFY THE DAY NURSE ,PT ON EDGAR EVALUATION
[2018-10-17] MEDS ORDERED: CYANOCOBALAMIN INJ 1,000 MCG/ML VIAL IM ONE (18:30)
--- NOTE | 2018-10-17 18:43 | NUR ---
PT RESTING ON BED BED SIDE REPORT GIVEN TO ONCOMING NURSE
--- NOTE | 2018-10-17 18:55 | Progress Note ---
DATE: October 17, 2018 INTERNAL MEDICINE PROGRESS NOTE SUBJECTIVE: Patient has been denied by his insurance company to go to [facility]. Dr. Cuevas has been consulted from an infectious disease point of view because of elevated white blood count, and his impression is that the patient does not have any infection, it is more likely related to a tumor. The family is interested in physical therapy because is extremely weak. So, we are going to get an evaluation to see if he can qualify to go to an inpatient rehabilitation unit. OBJECTIVE HEART: Shows regular rhythm, normal S1 and S2 sounds. LUNGS: Clear bilaterally. ABDOMEN: Soft. EXTREMITIES: Show no evidence of cyanosis, edema or trauma. On the BMP: Sodium 134, potassium 3.6, chloride 103, CO2 23, BUN 8, creatinine 0.66, glucose 140. On the CBC: White blood count 23,500; hemoglobin 9.9; hematocrit 31.5; platelet count 343,000. PT 16.2, INR 1.19, PTT 45.1. AST 12, ALT 24, total bilirubin 0.4, alkaline phosphatase of 104. FINAL IMPRESSION 1. Lung tumor on the left lung, rule out malignancy. 2. Chronic obstructive pulmonary disease. 3. Uncontrolled diabetes mellitus type 2. 4. Coronary artery disease status post stent placement. 5. Anemia of chronic disease. 6. Leukocytosis. PLAN OF TREATMENT: He is taking aztreonam 2 g IV q.8 h. and metronidazole, and Dr. Cuevas is thinking that we can discontinue antibiotic. Continue albuterol q.4 h. as needed for shortness of breath. Wellbutrin XL 150 mg daily. Celebrex 200 mg daily. Vitamin B12 1000 mcg daily. We are going to give 1000 mcg once IM. Continue Benadryl 25 mg p.o. q.4 h. as needed for itching. Colace 100 mg twice a day. Folic acid 1 mg daily. Continue with Atrovent 2 sprays twice a day. Keppra 500 mg twice a day. Remeron 7.5 mg at bedtime. Morphine 2 mg IV q.4 h. as needed for pain. Protonix 40 mg daily. MiraLAX 17 g twice a day. Simvastatin 20 mg daily. Carafate 1 g before meals. Flomax 0.5 mg daily. Zofran 4 mg IV q.4 h. as needed. So, we are going to get a consult with Dr. Rossi to see if he can qualify for inpatient rehab and then, of course, we are going to be waiting on the insurance company to see if they can approve that. The biopsy of the lung is still pending. All the treatment will depend on that, also. Job#: [id number] EV
--- NOTE | 2018-10-17 19:18 | NUR ---
Patient received relaxing with family members. AAOx 4. No acute distress noted. Fall precautions maintained. Call light within reach.
[2018-10-17 19:38] LABS: BILIRUBIN,URINE NEGATIVE (NEGATIVE); CLARITY,URINE CLEAR (CLEAR); COLOR,URINE STRAW (YELLOW); KETONES,URINE NEGATIVE (NEGATIVE); LEUKOCYTE ESTERASE ,URINE NEGATIVE (NEGATIVE); NITRITE,URINE NEGATIVE (NEGATIVE); PROTEIN,URINE DIPSTICK NEGATIVE (NEGATIVE); URINE UROBILINOGEN 0.2 mg/dL (0.2 - 1)
[2018-10-17 19:48] LABS: EPITHELIAL CELLS,URINE RARE /LPF; HYALINE CASTS 0-1 (0-1); WBC,URINE (MAN) 0-5 /HPF (0-5)
[2018-10-17] MEDS: SIMVASTATIN 20 MG TAB PO SCH (22:09)
[2018-10-17] MEDS: MIRTAZAPINE 15 MG TAB PO SCH (22:09)
[2018-10-18] VITALS (7 sets, daily range): BP systolic 113–133; BP diastolic 63–75
--- NOTE | 2018-10-18 01:09 | Consultation ---
DATE OF CONSULTATION: October 17, 2018 REASON FOR CONSULTATION: Recommendation for antibiotic. HISTORY OF PRESENT ILLNESS: This patient was admitted on October 07, 2018, through the emergency room. He is a 72-year-old male with history of COPD, heavy smoking, hypertension, and diabetes mellitus comes in with abdominal pain. He was found to have a lung mass with adrenal mass. He was admitted to the hospital. Patient had a CAT scan showed intermediate 3.8 cm right adrenal gland with intermediate left adrenal gland. He was diagnosed with pneumonia, abdominal pain, right lung tumor. He was started on aztreonam. He was given cefepime and metronidazole. He was seen by cardiology. He was seen by surgery, oncology, and GI. I was asked to see him today, October 17, 2018. The patient had lung mass. ALLERGIES: CLINDAMYCIN, DOXYCYCLINE, ASPIRIN, CODEINE, SULFA, AND PENICILLIN. MEDICATIONS: Azactam, cefepime, and metronidazole. He was also on Protonix and morphine. LABORATORY DATA: The patient's blood culture was negative. His white count is 23.58, hemoglobin 9.9. He has been running white count 22,000 since admission. His sodium 134, potassium 3.6. Lactic acid was 24 on October 07, 2018. His amylase and lipase within normal limits. PHYSICAL EXAMINATION GENERAL: He is currently alert, oriented, does not seem to be in acute distress. VITAL SIGNS: Stable, afebrile since admission. HEENT: Not icteric. NECK: Supple. CHEST: Clear without murmurs. ABDOMEN: Soft. Bowel sounds present. No tenderness. EXTREMITIES: No edema. IMPRESSIONS 1. Pulmonary mass, probably cancer. 2. Leukocytosis secondary to malignancy or . The patient looks comfortable. There is no fever. No chills. He has no complaints. His white count has been persistently elevated on antibiotic without any improvement. More importantly, he clinically looks very with no complaints. I will suggest we discontinue his antibiotic. We will check CBC and chem panel as an outpatient. We will discuss with oncology. Job#: [id number]
[2018-10-18] MEDS ORDERED: CYANOCOBALAMIN INJ 1,000 MCG/ML VIAL IM ONE (02:30)
--- NOTE | 2018-10-18 02:48 | NUR ---
Patient given Vit. B12 injection. Patient tolerated well.
--- NOTE | 2018-10-18 04:35 | NUR ---
fuel technician called with results of blood culture ---Gram positive cocci in chains and clusters.
--- NOTE | 2018-10-18 06:34 | NUR ---
Call placed to Dr. Cuevas regarding positive blood culture results. Awaiting call back.
--- NOTE | 2018-10-18 07:14 | NUR ---
Shift report given to oncoming nurse. Patient in stable condition.
--- NOTE | 2018-10-18 07:15 | NUR ---
pt asleep resp even and unlabored at this time, pt arousal to name, pt has family member at bedside, pt has no c/o pain when asked, call light in reach.
[2018-10-18] MEDS: INSULIN LISPRO 100 UNIT/1 ML 3ML VIAL SQ SCH ×4 (07:30→21:00)
[2018-10-18] MEDS: PANTOPRAZOLE SOD 40 MG TABEC PO SCH (07:30)
[2018-10-18] MEDS: LEVETIRACETAM 500 MG TAB PO SCH ×2 (09:00→21:59)
[2018-10-18] MEDS: IPRATROPIUM BROMIDE 0.06% 42 MCG NASPR NS SCH ×2 (09:00→21:00)
[2018-10-18] MEDS: TAMSULOSIN HCL 0.4 MG CAP PO SCH (09:00)
[2018-10-18] MEDS: CELECOXIB 200 MG CAP PO SCH (09:00)
[2018-10-18] MEDS: CYANOCOBALAMIN 1,000 MCG TAB PO SCH (09:00)
[2018-10-18] MEDS: FOLIC ACID 1 MG TAB PO SCH (09:00)
[2018-10-18] MEDS: POLYETHYLENE GLYCOL 3350 17 GM PACK PO SCH ×2 (09:00→17:33)
[2018-10-18] MEDS: BUPROPION HCL 150 MG TABCR PO SCH (09:00)
[2018-10-18] MEDS: DOCUSATE SODIUM 100 MG CAP PO SCH ×2 (09:00→17:33)
[2018-10-18] MEDS: MORPHINE SULFATE INJ 4 MG/ML INJ 1ML IV PRN ×4 (09:11→22:10)
[2018-10-18] MEDS: ONDANSETRON HCL INJ 2MG/ML 2ML 2 MG/ML VIAL IV PRN ×3 (09:12→18:05)
[2018-10-18] MEDS: VANCOMYCIN 1GM/NS 250 ML 250 ML IV SCH ×2 (13:39→22:30)
--- NOTE | 2018-10-18 14:09 | Consultation ---
DATE OF CONSULTATION: October 18, 2018 REHAB CONSULTATION REFERRING PHYSICIAN: Dr. Atkinson. I would like to thank Dr. Atkinson for asking me to see Mr. Walsh in consultation. REASON FOR CONSULTATION 1. Debilitated state. 2. Lung mass. 3. Adrenal biopsy pending. 4. Leukocytosis. 5. COPD. 6. Debilitation. 7. Pneumonia. HISTORY: Mainly from medical records and chart. Patient is a 72-year-old Latin male who was admitted to this facility for COPD exacerbation as well as diagnosis with pneumonia and found to have a lung mass and an adrenal mass, was seen by Dr. Berkowitz. Undergoing evaluation for biopsy of his mass. Patient has had overall decline in function . I am being asked to evaluate for rehab needs. PAST MEDICAL HISTORY: Includes COPD, diabetes, hypertension, diabetic neuropathy, prostatic hypertrophy, coronary artery disease. ALLERGIES: CLINDAMYCIN, DOXYCYCLINE, ASPIRIN, CODEINE, IODINE, SULFA, PENICILLIN. SOCIAL HISTORY: States that he lives with his family. He really was not able to tell me how well he was ambulatory, but it sounds like he was getting around fairly well prior to this admission. HABITS: Quit smoking four months ago, but he is a long-term smoker. Nondrinker. FAMILY HISTORY: Denies. CONSTITUTIONAL REVIEW OF SYSTEMS: Eleven-point review of systems asked of the patient, but he really could not tell me a whole lot. LABS: White cell count 23.5, hemoglobin 9.9, hematocrit 31.5, platelets of 343. Blood sugars of 131. IMAGING: He had a chest x-ray from the other day which showed lungs well inflated, cardiomediastinal silhouette is normal, and he had a lung biopsy at one point for his large left lung mass. PHYSICAL EXAMINATION GENERAL: The patient is awake and alert, oriented x2. He knows Kalie is the president; he knows it is 2019. He actually is pretty oriented overall, but he does have some episodes of confusion and he did say he thought he was at the movie theaters at one point but then he said he is at the hospital. EYES: Gaze conjugate. NECK: Supple. HEART: Regular. LUNGS: Diminished breath sounds. ABDOMEN: Nontender, nondistended. EXTREMITIES: Functional range of motion of upper extremities. He is actually strong he has some weakness throughout. MANUAL MUSCLE TESTIN-/5 strength in his shoulder, elbow and rotary cutter feeder bilaterally. In both legs, hip and knee flexion and extension is 3+/5 to 4-/5 strength. Ankle dorsiflexion is 4-/5 strength. He did walk about 125 feet today with therapy with assistance. IMPRESSION 1. Debilitated state secondary to chronic obstructive pulmonary disease. 2. Lung tumor. 3. Adrenal mass. 4. Uncontrolled diabetes. 5. Diabetic neuropathy. 6. Anemia of chronic disease. 7. Impaired mobilization and gait. PLAN: Patient is not back to his prior level of function. We are awaiting results of the biopsy for him to determine his next plan of care. Will follow along with you and when appropriate transition to inpatient rehab to try to build up his strength and his endurance. Thank you once again, Dr. Atkinson, for allowing me to participate in the care of this pleasant but unfortunate patient. Job#: [id number] EV
--- NOTE | 2018-10-18 17:02 | Progress Note ---
DATE: October 18, 2018 INTERNAL MEDICINE PROGRESS NOTE SUBJECTIVE: The patient is still complaining of pain on the left side of the chest. PHYSICAL EXAM: VITAL SIGNS: Blood pressure 116/67. Temperature 98.2. Heart rate 100 per minute. Respiratory rate 18 per minute. Oxygen saturation 94%. HEART: Shows regular rhythm. Normal S1 and S2 sounds. LUNGS: Clear bilaterally. ABDOMEN: Soft. EXTREMITIES: Show no evidence of cyanosis, edema or trauma. On the BMP: Sodium 134, potassium 3.6, chloride 103, CO2 23, BUN 8, creatinine 0.66, glucose 140. On the CBC: White blood count is still elevated at 23,500; hemoglobin 9.9; hematocrit 31.5; platelet count 343,000. PT is 16.2, INR 1.19, PTT 45.1. AST 12, ALT 24, total bilirubin 0.4, alkaline phosphatase 104. FINAL IMPRESSION: 1. Left upper lung nodule. 2. He has also leukocytosis. 3. 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 4. Benign prostatic hypertrophy. 5. Coronary artery disease status post stent placement. On the biopsy report: We had evidence of a necrotic mass but no diagnostic; so, another biopsy has been recommended. Blood cultures: One of them came back negative; the other one came back with gram-positive cocci. PLAN: He has a left upper lobe mass, which are going to try to rule out malignancy with another biopsy, and then the rest of the treatment is albuterol q.4 hours, vancomycin 1 gram IV twice a day. Continue to monitor blood sugar a.c. and nightly. Flomax 0.4 mg daily. Simvastatin 20 mg daily. Remeron 7.5 mg at bedtime. Continue MiraLAX 17 grams twice a day. Bupropion 150 mg daily. Celebrex 200 mg daily. Carafate 1 gram before meals and at bedtime. Atrovent q.12 hours. Keppra 500 mg twice a day. Vitamin B12, 1000 mcg daily. Colace 100 mg twice a day. Folic acid 1 mg daily. Protonix 40 mg daily. Benadryl 25 mg q.4 hours as needed. Morphine 2 mg IV q.4 hours as needed. As I said, tomorrow he is going to go for a second biopsy to get a more resources representative sample to make sure that we can rule out malignancy. Blood cultures are going to be repeated again. IV antibiotic has been restarted because of the gram-positive cocci in the cultures. We are going to follow the blood cultures. Continue physical and occupational therapy. Job#: [id number]
--- NOTE | 2018-10-18 17:15 | NUR ---
consent signed for biopsy, pt and family notified of pt NPO status.
--- NOTE | 2018-10-18 19:26 | NUR ---
Patient received sitting in chair , having dinner with family members. AAO x 3. No complaints of pain. No signs of respiratory distress. Patient instructed to call for assistance when needed. Call light within reach.
--- NOTE | 2018-10-18 19:43 | NUR ---
report given to oncoming nurse for continued care.
[2018-10-18] MEDS: SIMVASTATIN 20 MG TAB PO SCH (21:59)
[2018-10-18] MEDS: MIRTAZAPINE 15 MG TAB PO SCH (21:59)
[2018-10-19] VITALS (7 sets, daily range): BP systolic 119–142; BP diastolic 59–75
[2018-10-19] MEDS: MORPHINE SULFATE INJ 4 MG/ML INJ 1ML IV PRN ×3 (03:41→23:38)
[2018-10-19] MEDS: PANTOPRAZOLE SOD 40 MG TABEC PO SCH (07:30)
[2018-10-19] MEDS: INSULIN LISPRO 100 UNIT/1 ML 3ML VIAL SQ SCH ×4 (07:30→21:00)
[2018-10-19] MEDS: FOLIC ACID 1 MG TAB PO SCH (09:00)
[2018-10-19] MEDS: DOCUSATE SODIUM 100 MG CAP PO SCH ×2 (09:00→16:58)
[2018-10-19] MEDS: BUPROPION HCL 150 MG TABCR PO SCH (09:00)
[2018-10-19] MEDS: CYANOCOBALAMIN 1,000 MCG TAB PO SCH (09:00)
[2018-10-19] MEDS: IPRATROPIUM BROMIDE 0.06% 42 MCG NASPR NS SCH ×2 (09:00→21:00)
[2018-10-19] MEDS: LEVETIRACETAM 500 MG TAB PO SCH ×2 (09:00→20:23)
[2018-10-19] MEDS: TAMSULOSIN HCL 0.4 MG CAP PO SCH (09:00)
[2018-10-19] MEDS: POLYETHYLENE GLYCOL 3350 17 GM PACK PO SCH (09:00)
[2018-10-19] MEDS: CELECOXIB 200 MG CAP PO SCH (09:00)
[2018-10-19] MEDS ORDERED: SODIUM CHLORIDE 0.9% 500ML 500 ML ONE (11:09)
[2018-10-19] MEDS ORDERED: FENTANYL CITRATE/PF 100MCG/2 ML INJ ONE (11:10)
[2018-10-19] MEDS ORDERED: MIDAZOLAM HCL 2 MG/2 ML VIAL ONE (11:10)
[2018-10-19] MEDS: VANCOMYCIN 1GM/NS 250 ML 250 ML IV SCH ×2 (11:47→22:13)
[2018-10-19] MEDS ORDERED: GELATIN SPONGE 12-7MM ONE (12:37)
--- NOTE | 2018-10-19 13:23 | Diagnostic Imaging Report ---
ADDENDUM #1 ADDENDUM: Dose modulation, iterative reconstruction, and/or weight based adjustment of the mA/kV was utilized to reduce the radiation dose to as low as reasonably achievable. Signed by: Dr. 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 Blood pressure was monitored at 5 minute intervals. Total monitored sedation time: 60 minutes Additional Medications: Lidocaine 1% for local anesthesia Fluoroscopy time: None Contrast used: None Estimated blood loss: Less than 5 cc Blood products administered: None Specimens: Fine-needle aspiration x 4, core biopsy specimens x 6 Implants: Gelfoam embolization of tract Condition at completion: Stable Disposition: Returned to floor DISCUSSION: Informed consent was obtained and documented in the medical record after discussion of risks and benefits. Patient was placed in the right lateral decubitus position on the CT couch and a marker grid was placed right back. Limited CT scan of the upper abdomen demonstrated a right adrenal mass. A suitable percutaneous approach was identified and the overlying skin was prepped and draped in the standard sterile fashion. 1% lidocaine was infiltrated into the skin and subcutaneous tissues for local anesthesia. Then under intermittent CT guidance, a 16-gauge needle guide was advanced to the periphery of the mass. Subsequently, 4 fine-needle aspiration specimens were obtained coaxially using 22-gauge needles. Specimens were submitted to on-site cytopathology personnel with preliminary report of satisfactory cellularity. Subsequently, a total of 6 core biopsy specimens were obtained coaxially using an 18-gauge, 2 cm throw core biopsy apparatus with CT guidance. Core specimens were submitted in formalin. Gelfoam embolization of the tract was performed and the introducer needle was removed. Postprocedure CT showed no evidence of hematoma or pneumothorax. The patient tolerated the procedure well without immediate complication. FINDINGS: Right adrenal mass. IMPRESSION: CT-guided fine-needle aspiration and core biopsy of right adrenal mass as above. Signed by: Dr. Omega Mckeon MD on 10/19/2018 1:20 PM
--- NOTE | 2018-10-19 14:30 | NUR ---
TATI SPOKE TO DR. SORIA REGARDING PATIENT PLAN OF CARE AND DISCHARGE PLANNING SINCE PATIENT WAS DENIED HALFWAY ACUTE CARE PLACEMENT. STATES HE SPOKE WITH DR. URIAS REGARDING INPT REHAB RE-EVALUATION. DR. URIAS TO SEE PATIENT TO [facility] FOR INPT REHAB APPROVAL. PENDING EVALUATION FROM DR. URIAS FOR DISCHARGE ORDERS AND PLAN OF CARE.
[2018-10-19] MEDS ORDERED: LACTULOSE SYRUP 20 GM/30 ML UDC PO PRN (14:45)
--- NOTE | 2018-10-19 15:07 | Progress Note ---
DATE: October 19, 2018 INTERNAL MEDICINE PROGRESS NOTE The patient is status post lung biopsy again because the first one was nondiagnostic. He is going for a bronchoscopy on Monday, also to get a better sample. PHYSICAL EXAMINATION HEART: Shows regular rhythm. Normal S1 and S2 sounds. LUNGS: Clear bilaterally. ABDOMEN: Not distended. VITAL SIGNS: Blood pressure 142/74, temperature 99.7, heart rate 92 per minute, respiratory rate is 18 per minute, oxygen saturation 93%. FINAL IMPRESSION 1. Left lung lesion, most likely an abscess: We are trying to rule out malignancy. 2. Chronic obstructive pulmonary disease. 3. Diabetes mellitus, type 2. 4. Benign prostatic hypertrophy. 5. Coronary artery disease: Status post coronary artery bypass graft. PLAN OF TREATMENT: We are going to continue vancomycin. We are going to add Azactam 2 g IV q.8 h. Blood culture has been ordered. We are going to continue albuterol q.4 h., bupropion 150 mg daily, Celebrex 200 mg daily, vitamin B12 1000 mcg p.o. daily. Continue Colace 100 mg twice a day. Continue folic acid 1 mg daily. Humalog. Monitor blood sugar a.c. and at night. Albuterol and Atrovent 2 sprays q.12 h. Keppra 500 mg twice a day for seizures. Continue Remeron 7.5 mg at bedtime. Morphine 2 mg IV q.4 h. as needed. Protonix 40 mg daily. MiraLAX 17 g twice a day. Zocor 20 mg daily. Flomax 0.4 mg daily. Zofran 4 mg IV q.4 h. as needed. I am going to discontinue the MiraLAX and put him on Amitiza, because the patient has narcotic-induced constipation. So, Amitiza will be more effective for this patient. I am going to start also on lactulose. Also, as another medication in case that he has a need for a laxative. Job#: [id number]
--- NOTE | 2018-10-19 15:11 | Diagnostic Imaging Report ---
EXAMINATION: CHEST SINGLE (PORTABLE) INDICATION: Status post right adrenal biopsy. COMPARISON: CT adrenal biopsy 10/19/2018, chest radiograph 10/12/2018, CT Chest 10/07/2018. FINDINGS: TUBES and LINES: None. LUNGS: The right lung is clear. There is a mass projecting over the left mid and lower lung zones, as seen on prior studies. There is increasing linear and patchy opacity in the left lower lung. PLEURA: Small left pleural effusion. No evidence of pneumothorax. HEART AND MEDIASTINUM: The cardiomediastinal silhouette is unremarkable. BONES AND SOFT TISSUES: No acute osseous lesion. Soft tissues are unremarkable. UPPER ABDOMEN: No free air under the diaphragm. IMPRESSION: No evidence of pneumothorax. Left-sided pulmonary mass with increasing linear and patchy opacity in the left lower lung zone, likely atelectasis. Small left pleural effusion. Signed by: Dr. Omega Mckeon MD on 10/19/2018 3:08 PM
--- NOTE | 2018-10-19 15:30 | NUR ---
recv pt, no s/s distress at this time. vs stable. will continue to monitor.
[2018-10-19] MEDS: AZTREONAM 2GM/NS 100ML 100 ML IV SCH ×2 (16:58→20:23)
[2018-10-19] MEDS: LUBIPROSTONE 24 MCG CAP PO SCH (16:58)
[2018-10-19] MEDS: ONDANSETRON HCL INJ 2MG/ML 2ML 2 MG/ML VIAL IV PRN ×2 (17:36→23:38)
[2018-10-19] MEDS: SIMVASTATIN 20 MG TAB PO SCH (20:23)
[2018-10-19] MEDS: MIRTAZAPINE 15 MG TAB PO SCH (20:23)
[2018-10-20] VITALS (9 sets, daily range): BP systolic 116–133; BP diastolic 57–70
[2018-10-20] MEDS: AZTREONAM 2GM/NS 100ML 100 ML IV SCH ×3 (05:07→21:43)
[2018-10-20] MEDS: MORPHINE SULFATE INJ 4 MG/ML INJ 1ML IV PRN ×3 (05:08→13:52)
[2018-10-20] MEDS: ONDANSETRON HCL INJ 2MG/ML 2ML 2 MG/ML VIAL IV PRN ×3 (05:09→13:52)
[2018-10-20 05:15] LABS: BASOPHILS # (AUTO) 0.1 (0.0-0.1); BASOPHILS % 0.3 % (0.0-1.0); EOSINOPHILS # (AUTO) 0.2 (0.0-0.4); EOSINOPHILS % 0.8 % (0.0-6.0); HEMOGLOBIN 9.4 g/dL (14.0-18.0); LYMPHOCYTES # (AUTO) 1.7 (1.0-3.2); LYMPHOCYTES % 7.7 % (18.0-39.1); MEAN CORPUSCULAR HEMOGLOBIN 26.3 pg (28-32); MEAN CORPUSCULAR HGB CONC 31.3 g/dL (31-35); MONOCYTES # (AUTO) 1.1 (0.2-0.8); MONOCYTES % 5.1 % (4.4-11.3); NEUTROPHILS # (AUTO) 18.4 (2.1-6.9); NEUTROPHILS % 85.2 % (38.7-80.0); PLATELET COUNT 403 x10e3/uL (140-360); RED BLOOD COUNT 3.57 x10e6/uL (4.3-5.7); RED CELL DISTRIBUTION WIDTH 14.2 % (11.7-14.4)
[2018-10-20 05:38] LABS: ALANINE AMINOTRANSFERASE 14 IU/L (0-55); ALBUMIN 1.7 g/dL (3.5-5.0); ALBUMIN/GLOBULIN RATIO 0.4 (0.8-2.0); ALKALINE PHOSPHATASE 98 IU/L (40-150); ANION GAP 15.2 mmol/L (8-16); BLOOD UREA NITROGEN 8 mg/dL (7-26); BUN/CREATININE RATIO 13 (6-25); CALCIUM 8.2 mg/dL (8.4-10.2); CARBON DIOXIDE 25 mmol/L (22-29); CHLORIDE 99 mmol/L (98-107); CREATININE, SERUM 0.63 mg/dL (0.72-1.25); EST GLOMERULAR FILTRATION RATE > 60 ML/MIN (60-); GLUCOSE 123 mg/dL (74-118); POTASSIUM 4.2 mmol/L (3.5-5.1); SODIUM 135 mmol/L (136-145)
[2018-10-20] MEDS: LEVETIRACETAM 500 MG TAB PO SCH ×2 (08:34→20:36)
[2018-10-20] MEDS: CELECOXIB 200 MG CAP PO SCH (08:34)
[2018-10-20] MEDS: CYANOCOBALAMIN 1,000 MCG TAB PO SCH (08:34)
[2018-10-20] MEDS: BUPROPION HCL 150 MG TABCR PO SCH (08:34)
[2018-10-20] MEDS: INSULIN LISPRO 100 UNIT/1 ML 3ML VIAL SQ SCH ×4 (08:34→21:30)
[2018-10-20] MEDS: PANTOPRAZOLE SOD 40 MG TABEC PO SCH (08:34)
[2018-10-20] MEDS: TAMSULOSIN HCL 0.4 MG CAP PO SCH (08:34)
[2018-10-20] MEDS: FOLIC ACID 1 MG TAB PO SCH (08:34)
[2018-10-20] MEDS: LUBIPROSTONE 24 MCG CAP PO SCH ×2 (09:00→17:23)
[2018-10-20] MEDS: DOCUSATE SODIUM 100 MG CAP PO SCH ×2 (09:00→17:23)
[2018-10-20] MEDS: IPRATROPIUM BROMIDE 0.06% 42 MCG NASPR NS SCH ×2 (09:42→21:00)
[2018-10-20] MEDS: VANCOMYCIN 1GM/NS 250 ML 250 ML IV SCH ×2 (11:20→22:34)
[2018-10-20] MEDS: MIRTAZAPINE 15 MG TAB PO SCH (20:36)
[2018-10-20] MEDS: SIMVASTATIN 20 MG TAB PO SCH (20:36)
--- NOTE | 2018-10-20 23:00 | NUR ---
DR. Caro SMITH HERE FOR ROUNDING. NO ORDERS.
[2018-10-21] VITALS (8 sets, daily range): BP systolic 104–136; BP diastolic 54–67
[2018-10-21] MEDS: MORPHINE SULFATE INJ 4 MG/ML INJ 1ML IV PRN ×4 (02:20→22:47)
[2018-10-21] MEDS: ONDANSETRON HCL INJ 2MG/ML 2ML 2 MG/ML VIAL IV PRN ×2 (02:20→08:54)
[2018-10-21] MEDS: AZTREONAM 2GM/NS 100ML 100 ML IV SCH ×3 (05:32→21:00)
--- NOTE | 2018-10-21 07:23 | NUR ---
pt resting in bed, no c/o pain or s./s distress. will continue to monitor.
[2018-10-21] MEDS: INSULIN LISPRO 100 UNIT/1 ML 3ML VIAL SQ SCH ×4 (07:30→22:00)
[2018-10-21] MEDS: PANTOPRAZOLE SOD 40 MG TABEC PO SCH (08:54)
[2018-10-21] MEDS: TAMSULOSIN HCL 0.4 MG CAP PO SCH (08:54)
[2018-10-21] MEDS: LUBIPROSTONE 24 MCG CAP PO SCH ×2 (08:54→17:07)
[2018-10-21] MEDS: LEVETIRACETAM 500 MG TAB PO SCH ×2 (08:54→20:33)
[2018-10-21] MEDS: CELECOXIB 200 MG CAP PO SCH (08:54)
[2018-10-21] MEDS: DOCUSATE SODIUM 100 MG CAP PO SCH ×2 (08:54→17:07)
[2018-10-21] MEDS: FOLIC ACID 1 MG TAB PO SCH (08:54)
[2018-10-21] MEDS: BUPROPION HCL 150 MG TABCR PO SCH (08:54)
[2018-10-21] MEDS: CYANOCOBALAMIN 1,000 MCG TAB PO SCH (08:54)
[2018-10-21] MEDS: IPRATROPIUM BROMIDE 0.06% 42 MCG NASPR NS SCH (09:00)
[2018-10-21] MEDS: VANCOMYCIN 1GM/NS 250 ML 250 ML IV SCH ×2 (10:06→21:53)
[2018-10-21] MEDS ORDERED: SODIUM CHLORIDE 0.9% 250ML 250 ML ONE (20:25)
[2018-10-21] MEDS: MIRTAZAPINE 15 MG TAB PO SCH (20:33)
[2018-10-21] MEDS: SIMVASTATIN 20 MG TAB PO SCH (20:33)
--- NOTE | 2018-10-21 22:58 | NUR ---
DR. Eliu SMITH HERE FOR ROUNDING. NO ORDERS.
[2018-10-22 01:06] VITALS: BP 122/59
[2018-10-22] MEDS: AZTREONAM 2GM/NS 100ML 100 ML IV SCH ×3 (05:42→21:14)
[2018-10-22] MEDS: ONDANSETRON HCL INJ 2MG/ML 2ML 2 MG/ML VIAL IV PRN ×3 (05:49→21:28)
[2018-10-22] MEDS: MORPHINE SULFATE INJ 4 MG/ML INJ 1ML IV PRN ×4 (05:49→21:28)
[2018-10-22 06:19] VITALS: BP 123/65
--- NOTE | 2018-10-22 06:36 | NUR ---
Visit made by the Spiritual Care Department Pastoral Visitor, Bhavin Gould. PV provided pastoral presence, hospitality, and supportive listening. Pastoral Visitor informed pt/family of the scope of [employer] and availability. JENNIFER CASTILLO Director [employer] Spiritual Care Department O: [phone] Pager: [phone] ([phone] number calling from)
--- NOTE | 2018-10-22 07:11 | NUR ---
received pt lying in bed with eyes closed, Resp even and unlabored. call light within reach.
[2018-10-22] MEDS: INSULIN LISPRO 100 UNIT/1 ML 3ML VIAL SQ SCH ×4 (07:30→21:23)
[2018-10-22 07:50] VITALS: BP 104/86
[2018-10-22 07:56] VITALS: BP 104/56
--- NOTE | 2018-10-22 08:47 | NUR ---
Per , no bronchoscopy today and patient may eat.
[2018-10-22] MEDS: IPRATROPIUM BROMIDE 0.06% 42 MCG NASPR NS SCH (09:00)
[2018-10-22] MEDS: LEVETIRACETAM 500 MG TAB PO SCH ×2 (09:39→21:10)
[2018-10-22] MEDS: TAMSULOSIN HCL 0.4 MG CAP PO SCH (09:39)
[2018-10-22] MEDS: DOCUSATE SODIUM 100 MG CAP PO SCH ×2 (09:39→17:28)
[2018-10-22] MEDS: CELECOXIB 200 MG CAP PO SCH (09:39)
[2018-10-22] MEDS: FOLIC ACID 1 MG TAB PO SCH (09:39)
[2018-10-22] MEDS: LUBIPROSTONE 24 MCG CAP PO SCH ×2 (09:39→17:28)
[2018-10-22] MEDS: PANTOPRAZOLE SOD 40 MG TABEC PO SCH (09:39)
[2018-10-22] MEDS: BUPROPION HCL 150 MG TABCR PO SCH (09:40)
[2018-10-22] MEDS: CYANOCOBALAMIN 1,000 MCG TAB PO SCH (09:40)
[2018-10-22 11:00] LABS: BASOPHILS % 0.2 % (0.0-1.0); EOSINOPHILS # (AUTO) 0.3 (0.0-0.4); EOSINOPHILS % 1.4 % (0.0-6.0); HEMATOCRIT 27.9 % (38.2-49.6); HEMOGLOBIN 8.5 g/dL (14.0-18.0); LYMPHOCYTES # (AUTO) 1.5 (1.0-3.2); LYMPHOCYTES % 7.4 % (18.0-39.1); MEAN CORPUSCULAR HEMOGLOBIN 25.8 pg (28-32); MEAN CORPUSCULAR HGB CONC 30.5 g/dL (31-35); MEAN CORPUSCULAR VOLUME 84.8 fL (81-99); MONOCYTES # (AUTO) 1.2 (0.2-0.8); MONOCYTES % 5.7 % (4.4-11.3); NEUTROPHILS # (AUTO) 17.5 (2.1-6.9); NEUTROPHILS % 84.3 % (38.7-80.0); PLATELET COUNT 390 x10e3/uL (140-360); RED BLOOD COUNT 3.29 x10e6/uL (4.3-5.7); RED CELL DISTRIBUTION WIDTH 14.5 % (11.7-14.4)
[2018-10-22 11:17] LABS: ANION GAP 13.2 mmol/L (8-16); BLOOD UREA NITROGEN 9 mg/dL (7-26); BUN/CREATININE RATIO 15 (6-25); CALCIUM 8.2 mg/dL (8.4-10.2); CARBON DIOXIDE 25 mmol/L (22-29); CHLORIDE 101 mmol/L (98-107); EST GLOMERULAR FILTRATION RATE > 60 ML/MIN (60-); GLUCOSE 123 mg/dL (74-118); POTASSIUM 4.2 mmol/L (3.5-5.1); SODIUM 135 mmol/L (136-145)
[2018-10-22 11:31] VITALS: BP 105/59
[2018-10-22] MEDS: VANCOMYCIN 1GM/NS 250 ML 250 ML IV SCH ×2 (11:59→22:20)
--- NOTE | 2018-10-22 15:54 | NUR ---
WENT TO SPEAK WITH SPOUSE AND FAMILY ABOUT THE HOSPICE REFERRAL, FAMILY BECAME UPSET AND STATED THAT THE DOCTOR HAD NOT MENTIONED THIS TO THEM AND WANT TO SPEAK WITH THE DOCTOR.
--- NOTE | 2018-10-22 16:05 | NUR ---
Nutrition Intervention Assessment RD Recommendation(s) for Physician: - Continue ADA diet as ordered - Continue Glucerna Shake TID as ordered - Consider appetite stimulant to increase PO intake - Pt meets criteria for moderate protein calorie malnutrition Plan of Care: RD following, monitoring for tolerance and adequacy, ONS rec Nutrition reason for involvement: Follow up RD Assessment 10/22 Chart reviewed. Pt was discussed during rounds. Adrenal gland biopsy result pending. Insurance pending for placement. Currently on IV abx. Visited pt in the room. Pt was asleep. Per daughter on bedside, pt continues to have poor appetite with ~25% meal intake. However, pt drinks majority of the Glucerna. No GI complains noted. LBM 10/21. No chewing or swallowing difficulty noted. Will continue to monitor and follow. 10/15: Chart reviewed. Pt was discussed during rounds. Lung biopsy result pending. Per RN, pt is going to be transferred to [facility] for continuation of antibiotics and physical therapy. Visited pt in the room. Pt reports of poor appetite. However, RN recorded ~75-100% meal intake over the weekend. Pt complains of some nausea and meds were given. No vomiting episode noted. No supplement order in chart. Multiple bottles of Ensure are sitting on bedside; pt usually drinks 2-3 bottles a day. Will continue to monitor and follow. 10/11: Chart reviewed. Biopsy pending. Visited pt in the room. Pt reports improved appetite with ~75% observed lunch intake. No complains of nausea or vomiting at this time. Pt reports constipation x3 days, laxatives has been given. Pt reports of some issue with chewing due to missing teeth but refused mechanical soft diet. No swallowing difficulty noted. Entered food preferences on [employer] [facility]. Pt has been drinking Glucerna ordered. Will continue to monitor and follow. 10/08: 72 YOM admitted for abdominal with new dx of R lung nodules and nodules on adrenal glands with pending pathology- IR consulted for biopsy. Pt seen today per RN screen. Pt reports poor appetite and intake for months, can not quantify time frame. Pt reports UBW of 198# 1 year ago, noted 18% wt loss in 1 year. Pt states he has been eating 1 meal per day and does not drink any supplements at home 2/2 no access to them. Pt was unable to identify GI distress symptoms at time of visit, was agitated at that time 2/2 to pain and requesting ice chips- RN notified of pt status. Chart reviewed. Will monitor and continue to follow. Principal Problems/Diagnoses: 1. Abdominal pain 2. PNA 3. Adrenal mass PMH: PNA, COPD, DM, HTN GI: LBM 10/21 per chart Skin: WDL Labs: 10/22: Na 135 L, Creatinine 0.6 L, Ca 8.2 L, glucose 123 H 10/08: Na 137, K 4.4, BUN 6, Cr 0.75, Gluc 144, Ca 8.2 Meds: zofran, abx, vit B12, laxatives, colace, protonix, folic acid Ht: 67 in Wt: 162.19 lb BMI: 25.4 kg/m2 IBW: 148 lb Malnutrition Evaluation (10/08/2018) The patient meets criteria for unspecified MODERATE protein-calorie malnutrition. Energy intake: <75% of estimated energy requirements for >1 month Weight loss: <20% in 1 year Fat loss: Eyes slightly hollow look Muscle loss: Clavicle visible Supporting Evidence: Fluid accumulation: none Functional Status: unable to evaluate Nutrition Prescription (Diet Order): ADA diet Estimated Nutritional Needs: Calories: 3925-5280 kcal (20-25 kcal/kg/d) Weight used : IBW Protein: 67-101 g (1-1.5g/kg/d) Weight used: IBW Diet Adequacy: Not meeting calorie needs, Not meeting protein needs Diet Education Needs Assessment: Diet education not indicated. Nutrition Care Level: low Nutrition Diagnosis: None at this time. Goal: Patient will meet 75-100% of estimated needs by follow up Progress: N/A Interventions: Texture and CHO modified diet, Commercial beverage Monitoring/Evaluation: Total energy intake, Total protein intake, Modified diet, Liquid supplement, Weight change Signed by Lisandra Sierra, MS, RD, LD
--- NOTE | 2018-10-22 18:01 | Progress Note ---
DATE: October 22, 2018 INTERNAL MEDICINE PROGRESS NOTE SUBJECTIVE: Patient has no significant complaints today, especially the shortness of breath. The addendum to the initial pathology report from the lung biopsy came with undifferentiated lung cancer. Dr. Gutierrez, a member of the Utilization Review Committee, talked to the patient and the son to let them know that he has terminal cancer and he needs hospice. Family is still thinking about that. They are not sure if they are going to the hospice. Home health can be another alternative. We are going to talk with Dr. Berkowitz, the hemato-oncologist about his opinion about the biopsy of the lung which just came today. OBJECTIVE VITAL SIGNS: Blood pressure 105/59, temperature 99.3, heart rate 97 per minute, respiratory rate 16 per minute, oxygen saturation 94%. HEART: Shows regular rhythm, normal S1 and S2 sounds. LUNGS: Clear bilaterally. ABDOMEN: Soft. On the BMP: Sodium 135, potassium 4.2, chloride 101, CO2 25, BUN 9, creatinine 0.60, glucose 123. On the CBC: White blood count 20,700; hemoglobin 8.5; hematocrit 27.9; platelet count 690,000. PT 16.2, INR 1.19, PTT is 45.1. AST 22, ALT 14, total bilirubin 0.4, alkaline phosphatase 98. FINAL IMPRESSION 1. Undifferentiated lung cancer. 2. Coronary artery disease status post stents. 3. Uncontrolled diabetes mellitus type 2. 4. Benign prostatic hypertrophy. 5. History of seizure disorder. PLAN OF TREATMENT: Continue albuterol q.4 h., vancomycin 1 g IV twice a day, aztreonam 1 g IV q.8 h., Zofran 4 mg IV q.4 h., folic acid 1 mg daily, Protonix 40 mg daily, Benadryl 25 mg IV q.4 h. as needed, morphine 2 mg IV q.4 h. as needed. Continue monitoring blood sugar a.c. and nightly. Continue Flomax 0.4 mg daily, simvastatin 20 mg daily, Remeron 7.5 mg at bedtime, Amitiza 24 mcg p.o. twice a day, bupropion 150 mg daily, Celebrex 200 mg daily, Carafate 1 g before meals and at bedtime, lactulose 20 g twice a day, Atrovent q.12 h., Keppra 500 mg twice a day, vitamin B12 1000 mcg daily, and Colace 100 mg twice a day. As I said, we had a long discussion with the family about hospice versus home health. Family and the patient will make the final decision on that. Patient is having an IV antibiotic because of the Streptococcus viridans in his blood cultures. Infectious Diseases is following him. He is on vancomycin and aztreonam. Patient has been denied by territory sales manager medical of the Medicare HMO that he has to go to a long-term care hospital, also; so, we are very limited in our choices. As I said, the family is thinking about hospice due to the undifferentiated lung cancer, but also they are considering home health and then we will go from there. I am going to discuss the case also with hemato-oncologist, Dr. Berkowitz, about his opinion on the case and the biopsy that just came today and we will go from there. Job#: [id number] COOPER
--- NOTE | 2018-10-22 19:35 | NUR ---
patient received. Patient is resting in bed. Resp even and unlabored. No acute distress noted. Patient denies of any pain or discomfort. family at bed time. call light within reach. instruct to call for assistance. bed alarm on. bed low/locked. continue to monitor closely
--- NOTE | 2018-10-22 20:22 | Progress Note ---
DATE: October 22, 2018 ADDENDUM TO INTERNAL MEDICINE PROGRESS NOTE I discussed the case with hemat-oncology, Dr. Luan Berkowitz. He agreed with pathology report and he agreed with the hospice referral due to the very poor prognosis of this kind of tumors with very poor survival even with chemotherapy. As I said, the family is going to talk with the patient and describe the different options and then go from there. Job#: [id number]
[2018-10-22] MEDS: SIMVASTATIN 20 MG TAB PO SCH (21:11)
[2018-10-22] MEDS: MIRTAZAPINE 15 MG TAB PO SCH (21:11)
[2018-10-22 21:16] VITALS: BP 168/77
[2018-10-23] VITALS (7 sets, daily range): BP systolic 112–168; BP diastolic 56–77
[2018-10-23] MEDS: ONDANSETRON HCL INJ 2MG/ML 2ML 2 MG/ML VIAL IV PRN ×4 (01:39→22:10)
[2018-10-23] MEDS: MORPHINE SULFATE INJ 4 MG/ML INJ 1ML IV PRN ×5 (01:39→22:10)
[2018-10-23] MEDS: AZTREONAM 2GM/NS 100ML 100 ML IV SCH ×3 (06:13→20:56)
--- NOTE | 2018-10-23 07:20 | NUR ---
PT AWAKE RESP EVEN AND UNLABORED AT THIS TIME NO DISTRESS NOTED, PT HAS FAMILY MEMBER AT BEDSIDE, PT HAS CALL LIGHT IN REACH.
[2018-10-23] MEDS: INSULIN LISPRO 100 UNIT/1 ML 3ML VIAL SQ SCH ×4 (07:30→20:56)
[2018-10-23] MEDS: PANTOPRAZOLE SOD 40 MG TABEC PO SCH (07:30)
[2018-10-23] MEDS: CYANOCOBALAMIN 1,000 MCG TAB PO SCH (09:00)
[2018-10-23] MEDS: BUPROPION HCL 150 MG TABCR PO SCH (09:00)
[2018-10-23] MEDS: TAMSULOSIN HCL 0.4 MG CAP PO SCH (09:00)
[2018-10-23] MEDS: DOCUSATE SODIUM 100 MG CAP PO SCH ×2 (09:00→17:00)
[2018-10-23] MEDS: CELECOXIB 200 MG CAP PO SCH (09:00)
[2018-10-23] MEDS: LUBIPROSTONE 24 MCG CAP PO SCH ×2 (09:00→17:00)
[2018-10-23] MEDS: LEVETIRACETAM 500 MG TAB PO SCH ×2 (09:00→20:55)
[2018-10-23] MEDS: FOLIC ACID 1 MG TAB PO SCH (09:00)
[2018-10-23] MEDS: VANCOMYCIN 1GM/NS 250 ML 250 ML IV SCH ×2 (10:30→21:51)
--- NOTE | 2018-10-23 19:30 | NUR ---
REPORT GIVEN TO TO ONCOMING NURSE, FOR CONTINUED CARE.
--- NOTE | 2018-10-23 20:30 | Discharge Summary ---
HISTORY OF PRESENT ILLNESS: The patient is 72-year-old male who had a past medical history positive for coronary artery disease, diabetes, COPD. Patient came here to the hospital with chest pain. He was found to have left lung mass. Biopsy at the beginning came back indeterminate, but then the 2nd reading on the biopsy showed undifferentiated carcinoma of the lung. He has also lesions on both adrenals, most likely secondary to metastatic lesions. After a long discussion with the family and after discussing with the oncology, Dr. Berkowitz, the family decided that they want a second opinion at [facility]. According to Dr. Luan Berkowitz, the heme/oncologist on the case felt the prognosis is very poor. He will not even recommend chemotherapy. He will recommend hospice because the prognosis is grim even with chemotherapy. So the family is going to look for a second opinion from an oncology at [facility]. Patient is going home tomorrow with home health. The patient and the family understand the diagnosis and very poor prognosis of the patient even with chemotherapy; but as I said, they want a second opinion from [facility] oncologist also. On physical exam, blood pressure 115/63, temperature 98.8, heart rate 97 per minute, respiratory rate 16 per minute, oxygen saturation 94%. On the BMP, sodium 135, potassium 4.2, chloride 101, CO2 25, BUN 9, creatinine 0.60, glucose 123. On the CBC, white blood count 20,700, hemoglobin 8.5, hematocrit 27.9, platelet count 319,000. PT 16.2, INR 1.19, PTT 45.1. AST 22, ALT 14, total bilirubin 0.4, alkaline phosphatase 98. FINAL IMPRESSION 1. Metastatic lung cancer. 2. Streptococcus bacteremia. 3. Leukocytosis. 4. Hypertension. 5. Chronic obstructive pulmonary disease. 6. Diabetes mellitus type 2 which is better with diet alone. 7. Seizure disorder. PLAN OF TREATMENT: Continue with albuterol q.4 h. as needed for shortness of breath. Continue folic acid 1 mg daily, Protonix 40 mg daily, Amitiza 24 mcg p.o. twice a day, Flomax 0.4 mg daily, simvastatin 20 mg daily, Remeron 7.5 mg at bedtime, lactulose 20 g twice a day. Continue celecoxib 200 mg daily, Carafate 1 g before meals. Continue Keppra 500 mg twice a day and Colace 100 mg twice a day. As he is allergic to Tylenol, we are going to prescribe Ultracet 1 tablet q.4 h. as needed for pain. We offered hospice to the patient. The patient and family rejected that. They wanted a second opinion from [facility]. So, Dr. Cuevas will decide what type of antibiotic he will need. Blood culture came positive with Streptococcus viridans and he is being getting the vancomycin and Aztreonam, so Dr. Cuevas will decide what type of antibiotic he needs on discharge. Case has been discussed with the family. As I said, prognosis is very poor. LEWIS SORIA MD Job#: [id number] GE
--- NOTE | 2018-10-23 20:51 | Discharge Summary ---
ADDENDUM The last blood culture has been negative for 5 days. Patient has been receiving a course of vancomycin and Azactam. Dr. Cuevas, infectious disease specialist, will decide about whether or not he needs outpatient antibiotics. LEWIS SORIA MD Job#: [id number] GE
[2018-10-23] MEDS: SIMVASTATIN 20 MG TAB PO SCH (20:55)
[2018-10-23] MEDS: MIRTAZAPINE 15 MG TAB PO SCH (20:55)
[2018-10-24] VITALS: BP_SYST 112; BP_SYST 124; BP_DIAS 60; BP_DIAS 61
[2018-10-24] MEDS: ONDANSETRON HCL INJ 2MG/ML 2ML 2 MG/ML VIAL IV PRN (02:12)
[2018-10-24] MEDS: MORPHINE SULFATE INJ 4 MG/ML INJ 1ML IV PRN (02:12)
[2018-10-24 04:00] VITALS: BP 125/58
[2018-10-24 05:36] LABS: BASOPHILS # (AUTO) 0.1 (0.0-0.1); BASOPHILS % 0.2 % (0.0-1.0); EOSINOPHILS # (AUTO) 0.3 (0.0-0.4); EOSINOPHILS % 1.5 % (0.0-6.0); HEMATOCRIT 26.2 % (38.2-49.6); HEMOGLOBIN 8.1 g/dL (14.0-18.0); LYMPHOCYTES # (AUTO) 1.6 (1.0-3.2); LYMPHOCYTES % 7.5 % (18.0-39.1); MEAN CORPUSCULAR HEMOGLOBIN 26.1 pg (28-32); MEAN CORPUSCULAR HGB CONC 30.9 g/dL (31-35); MEAN CORPUSCULAR VOLUME 84.5 fL (81-99); MONOCYTES # (AUTO) 1.3 (0.2-0.8); MONOCYTES % 6.3 % (4.4-11.3); NEUTROPHILS # (AUTO) 17.3 (2.1-6.9); NEUTROPHILS % 83.3 % (38.7-80.0); PLATELET COUNT 428 x10e3/uL (140-360); RED CELL DISTRIBUTION WIDTH 14.5 % (11.7-14.4)
[2018-10-24] MEDS: AZTREONAM 2GM/NS 100ML 100 ML IV SCH (05:45)
[2018-10-24 05:56] LABS: BLOOD UREA NITROGEN 8 mg/dL (7-26); BUN/CREATININE RATIO 14 (6-25); CARBON DIOXIDE 26 mmol/L (22-29); CHLORIDE 98 mmol/L (98-107); CREATININE, SERUM 0.59 mg/dL (0.72-1.25); EST GLOMERULAR FILTRATION RATE > 60 ML/MIN (60-); GLUCOSE 111 mg/dL (74-118); SODIUM 134 mmol/L (136-145)
--- NOTE | 2018-10-24 07:00 | NUR ---
RCD PT AT BED PT IS ALERT AND ORIENTED ASSESSMENT DONE IV PATENT FAMILY AT BED SIDE BED LOW AND LOCKED CALL LIGHT IN REACH
[2018-10-24] MEDS: PANTOPRAZOLE SOD 40 MG TABEC PO SCH (07:30)
[2018-10-24] MEDS: INSULIN LISPRO 100 UNIT/1 ML 3ML VIAL SQ SCH (07:30)
[2018-10-24 08:00] VITALS: BP 125/58
[2018-10-24 08:01] VITALS: BP 127/60
[2018-10-24] MEDS: CYANOCOBALAMIN 1,000 MCG TAB PO SCH (09:00)
[2018-10-24] MEDS: BUPROPION HCL 150 MG TABCR PO SCH (09:00)
[2018-10-24] MEDS: DOCUSATE SODIUM 100 MG CAP PO SCH (09:00)
[2018-10-24] MEDS: TAMSULOSIN HCL 0.4 MG CAP PO SCH (09:00)
[2018-10-24] MEDS: LEVETIRACETAM 500 MG TAB PO SCH (09:00)
[2018-10-24] MEDS: CELECOXIB 200 MG CAP PO SCH (09:00)
[2018-10-24] MEDS: LUBIPROSTONE 24 MCG CAP PO SCH (09:00)
[2018-10-24] MEDS: FOLIC ACID 1 MG TAB PO SCH (09:00)
--- NOTE | 2018-10-24 09:13 | NUR ---
CM SPOKE TO PATIENT AT BEDSIDE REGARDING DISCHARGE PLAN. PATIENT STATES HE WANTS TO RETURN HOME WITH HOME HEALTH. PATIENT INFORMED THAT DR. SORIA WROTE ORDERS FOR HOME HEALTH. PATIENT GIVEN CHOICES FOR HOME HEALTH COMPANIES. PATENT SIGNED CHOICE FOR [facility]. CLINICAL SENT AND PATIENT TO BE DISCHARGED HOME WITH HOME HEALTH SERVICES FROM: [facility] (P)[phone] (F) [phone] PATIENT INFORMED TO CONTACT CM IF HOME HEALTH COMPANY DOES NOT REACH OUT TO THEM FOR ASSESSMENT WITHIN 24-48 HOURS POST DISCHARGE. PATIENT VERBALLY AGREED AND GIVEN CM CONTACT INFORMATION.
[2018-10-24] MEDS ORDERED: ACETAMINOPHEN/CODEINE 300MG - 30MG TAB PO PRN (09:45)
[2018-10-24] MEDS ORDERED: ULTRACET PO (09:53)
[2018-10-24] MEDS ORDERED: AMITIZA24 MCG PO (09:54)
[2018-10-24] MEDS ORDERED: REMERON15 M1 PO (09:55)
--- NOTE | 2018-10-24 10:15 | NUR ---
PAGED DR SORIA GET THE ORDER TO PAIN MEDS IM SINCE IV INFILTRATED PT IS GOING HOME
--- NOTE | 2018-10-24 10:18 | NUR ---
DR SORIA RETURNED THE CALL AND GOT NEW ORDERS
[2018-10-24] MEDS ORDERED: MORPHINE SULFATE 2 MG/ML SYR 1ML IM STA (10:19)
[2018-10-24] MEDS: VANCOMYCIN 1GM/NS 250 ML 250 ML IV SCH (10:30)
[2018-10-24] MEDS ORDERED: MORPHINE SULFATE INJ 4 MG/ML INJ 1ML IM NR (10:30)
[2018-10-24 11:38] VITALS: BP 120/64
--- NOTE | 2018-10-24 11:49 | NUR ---
CM SPOKE TO PATIENT AT BEDSIDE REGARDING IMM LETTER. IMM LETTER GIVEN WITH EXPLANATION. ORIGINAL SIGNED AND PLACED IN CHART; COPY OF ORIGINAL DOCUMENT GIVEN TO PATIENT AT BEDSIDE AND PLACED IN CARE TRANSITION FOLDER. CM CONTACT INFORMATION GIVEN TO PATIENT FOR ANY NEEDS OR CONCERNS. PATIENT WITH NO FURTHER QUESTIONS.
[2018-10-24] MEDS ORDERED: LEVAQUIN500 MG PO (12:51)
--- NOTE | 2018-10-24 14:10 | NUR ---
PT WENT HOME IN SAFE CONDITION WITH HIS DAUGHTER
--- NOTE | 2018-10-24 17:50 | Discharge Summary ---
ADDENDUM HISTORY OF PRESENT ILLNESS: Patient is a 72-year-old male who had a past medical history positive for hypertension, coronary artery disease, severe, status post stent placement, history of diabetes mellitus, came to the hospital complaining of cough, phlegm and chest pain. He was found to have a mass in the left flank. The first biopsy was nonconclusive. A second biopsy showed an undifferentiated carcinoma. He has possible metastatic lesions in the adrenal glands. Patient was seen by [facility] oncologist, Dr. Luan Berkowitz, who recommends palliative care and hospice because of poor prognosis and the advanced lung cancer. Patient and family decided not for hospice. They decided to go for a second opinion [facility]. He is going home today. PHYSICAL EXAM HEART: Shows regular rhythm. Normal S1, S2 sounds. LUNGS: Clear bilaterally. FINAL IMPRESSIONS 1. Lung tumor with biopsy positive for undifferentiated carcinoma with possible adrenal gland metastatic lesions. 2. Chronic obstructive pulmonary disease . 3. Coronary artery disease, status post stent. 4. Uncontrolled diabetes mellitus type 2. PLAN: Patient is going to be discharged home today with the medication I already dictated yesterday. Patient is going to be followed up by heme oncologist at [facility] and follow up in their clinic in a week. Diet is diabetic diet and low-salt diet. As I said, the patient and family refused hospice. They want a second opinion from [facility] and they want to go home with home health. clinical team manager arranged for home health. Patient is off the insulin because of poor appetite. The blood sugar was pretty much borderline elevated, which just the diabetic diet, but because the patient has a poor appetite, we discontinued insulin regimen he was getting before. He is being prescribed Remeron for appetite also. LEWIS SORIA MD Job#: [id number] KATHARINE
== END 2018-10-24 14:20 | disposition home or self-care (01) | DRG 180 ==
LOC: ER 13:38 → ERHOLD 20:06 → IMCU 10-08 00:10 → MED/SURG2 10-11 20:49
PROVIDERS: ADMIT Internal Medicine; ATTEND Internal Medicine
PROC: 0DB78ZX Excision of Stomach, Pylorus, Via Natural or Artificial Opening Endoscopic, Diagnostic (ICD-10-PCS; 2018-10-10)
PROC: 0BBJ3ZX Excision of Left Lower Lung Lobe, Percutaneous Approach, Diagnostic (ICD-10-PCS; principal; 2018-10-12)
PROC: 0GB33ZX Excision of Right Adrenal Gland, Percutaneous Approach, Diagnostic (ICD-10-PCS; 2018-10-19)
DX: C34.32 Malignant neoplasm of lower lobe, left bronchus or lung (principal); J18.9 Pneumonia, unspecified organism; C79.72 Secondary malignant neoplasm of left adrenal gland; C79.71 Secondary malignant neoplasm of right adrenal gland; J44.0 Chronic obstructive pulmonary disease with (acute) lower respiratory infection; J44.1 Chronic obstructive pulmonary disease with (acute) exacerbation; E87.1 Hypo-osmolality and hyponatremia; E44.0 Moderate protein-calorie malnutrition; R78.81 Bacteremia; Z87.891 Personal history of nicotine dependence; E78.5 Hyperlipidemia, unspecified; I10 Essential (primary) hypertension; E11.40 Type 2 diabetes mellitus with diabetic neuropathy, unspecified; Z79.4 Long term (current) use of insulin; N40.0 Benign prostatic hyperplasia without lower urinary tract symptoms; I25.10 Atherosclerotic heart disease of native coronary artery without angina pectoris; Z95.5 Presence of coronary angioplasty implant and graft; F32.9 Major depressive disorder, single episode, unspecified; E11.65 Type 2 diabetes mellitus with hyperglycemia; D63.8 Anemia in other chronic diseases classified elsewhere; B95.4 Other streptococcus as the cause of diseases classified elsewhere; G40.909 Epilepsy, unspecified, not intractable, without status epilepticus; I25.2 Old myocardial infarction; H54.40 Blindness, one eye, unspecified eye; Z86.73 Personal history of transient ischemic attack (TIA), and cerebral infarction without residual deficits; R53.81 Other malaise; R26.9 Unspecified abnormalities of gait and mobility; K29.50 Unspecified chronic gastritis without bleeding; K20.9 Esophagitis, unspecified; K29.70 Gastritis, unspecified, without bleeding; M19.90 Unspecified osteoarthritis, unspecified site; Z79.02 Long term (current) use of antithrombotics/antiplatelets; Z88.5 Allergy status to narcotic agent; Z88.0 Allergy status to penicillin; Z88.2 Allergy status to sulfonamides; Z88.6 Allergy status to analgesic agent; Z88.1 Allergy status to other antibiotic agents; Z91.041 Radiographic dye allergy status; B86 Scabies
CPT/HCPCS: 32405; 36415; 43239; 49180; 71045; 71250; 74176; 74470; 76705; 77012; 78227; 80048; 80053; 80202; 81001; 82150; 82550; 82553; 82948; 83540; 83605; 83690; 83735; 83880; 84466; 84484; 85007; 85025; 85027; 85610; 85730; 87040; 87071; 87086; 87205; 88112; 88172; 88173; 88304; 88305; 88312; 88342; 93005; 93306; 96360; 96372; 97139; 99152; 99153; 99284; A9537; J0692; J2001; J2250; J2270; J2405; J3370; J3420; J3430; J7030; J7040; J7050; Q9967

== ENCOUNTER → 2018-10-26 | Outpatient (CLI) | payer MEDICARE ==
[~2018-10-26] MED LIST changes: +AMITIZA24 MCG PO; +REMERON15 M1 PO; +ULTRACET PO
== END ==
LOC: RAD 14:00
PROVIDERS: ATTEND Internal Medicine
DX: R60.9 Edema, unspecified (principal)
CPT/HCPCS: 93971

== ENCOUNTER 2018-10-29 12:52 | Emergency (ER) | payer MEDICARE ==
[~2018-10-29] VITALS: Ht 165.1 cm; Wt 65.8 kg
[2018-10-29] MEDS ORDERED: MORPHINE SULFATE INJ 4 MG/ML INJ 1ML IV ONE (14:15)
[2018-10-29] MEDS ORDERED: METHYLNALTREXONE BROMIDE 12 MG/0.6 ML VIAL SQ ONE (14:15)
[2018-10-29] MEDS ORDERED: MORPHINE SULFATE 5 MG/ML VIAL INJ ONE (14:15)
== END 2018-10-29 14:47 | disposition home or self-care (01) ==
LOC: ER 12:52
DX: G89.3 Neoplasm related pain (acute) (chronic) (principal); C34.90 Malignant neoplasm of unspecified part of unspecified bronchus or lung; R10.9 Unspecified abdominal pain; R11.0 Nausea; K59.00 Constipation, unspecified; E11.9 Type 2 diabetes mellitus without complications; Z86.73 Personal history of transient ischemic attack (TIA), and cerebral infarction without residual deficits; I25.2 Old myocardial infarction
CPT/HCPCS: 99283; J2212; J2270